=== PATIENT | female | born 1995 | race Caucasian/White ===

== ENCOUNTER 2021-03-07 08:59 | Outpatient (REF) | payer OTHER, SELFPAY ==
--- NOTE | ~2021-03-07 | XR_ITS ---
EXAMINATION: CR X-RAY PELVIS AND BILATERAL HIPS. CLINICAL INFORMATION: Bilateral hip and pelvic pain. COMPARISON: None TECHNIQUE: A single view of the pelvis and 2 views of each hip were obtained. FINDINGS: There is no acute fracture or dislocation. The hips are intact. The hip joints are unremarkable bilaterally. The bony pelvis is intact. The soft tissues are unremarkable. XR/XR pelvis 1-2V IMPRESSION: Unremarkable pelvis and bilateral hips.
--- NOTE | ~2021-03-07 | XR_ITS ---
EXAMINATION: CR X-RAY PELVIS AND BILATERAL HIPS. CLINICAL INFORMATION: Bilateral hip and pelvic pain. COMPARISON: None TECHNIQUE: A single view of the pelvis and 2 views of each hip were obtained. FINDINGS: There is no acute fracture or dislocation. The hips are intact. The hip joints are unremarkable bilaterally. The bony pelvis is intact. The soft tissues are unremarkable. XR/XR hip LT min 2V IMPRESSION: Unremarkable pelvis and bilateral hips.
--- NOTE | ~2021-03-07 | XR_ITS ---
EXAMINATION: CR X-RAY PELVIS AND BILATERAL HIPS. CLINICAL INFORMATION: Bilateral hip and pelvic pain. COMPARISON: None TECHNIQUE: A single view of the pelvis and 2 views of each hip were obtained. FINDINGS: There is no acute fracture or dislocation. The hips are intact. The hip joints are unremarkable bilaterally. The bony pelvis is intact. The soft tissues are unremarkable. XR/XR hip RT min 2V IMPRESSION: Unremarkable pelvis and bilateral hips.
== END 2021-03-07 09:00 | disposition home or self-care (01) ==
LOC: HO.HOSX 08:59
PROVIDERS: Visit Provider Physician Assistant
DX: M25.551 Pain in right hip (principal); M25.552 Pain in left hip; M53.3 Sacrococcygeal disorders, not elsewhere classified; G89.29 Other chronic pain
CPT/HCPCS: 72170; 73502; 99202

== ENCOUNTER 2021-07-13 09:40 | Outpatient (REF) | payer OTHER, SELFPAY ==
--- NOTE | 2021-07-13 09:44 | EMG_ITS ---
This is a 26-year-old woman with a 4-year history of bilateral hand pain and numbness. The right side is slightly worse. PHYSICAL EXAMINATION: She is alert and oriented with normal intellectual functions. Her cranial nerves are normal. No Tinel or Phalen sign. IMPRESSION: Carpal tunnel syndrome. Nerve conduction EMG study: Mild carpal tunnel syndrome on the right. Early carpal tunnel syndrome on the left. Normal EMG of the right C5-T1 innervated muscles. MD AMBER Mar/JASBIR / [id number]
== END 2021-07-13 09:41 | disposition home or self-care (01) ==
LOC: HO.NEURO 09:40
PROVIDERS: PCP Internal Medicine; Visit Provider Internal Medicine
DX: G56.03 Carpal tunnel syndrome, bilateral upper limbs (principal)
CPT/HCPCS: 95885; 95913

== ENCOUNTER → 2022-02-20 13:27 | Outpatient (BNVA) | payer OTHER, SELFPAY | PROVIDERS: PCP Internal Medicine; Referring Provider Internal Medicine; Visit Provider Internal Medicine | DX: I10 Essential (primary) hypertension (principal); R07.2 Precordial pain | CPT/HCPCS: 93005; 99202 ==

== ENCOUNTER → 2022-03-10 09:07 | Outpatient (REF) | payer OTHER, SELFPAY ==
--- NOTE | 2022-03-10 09:10 | CA_ITS ---
Transthoracic Echocardiogram Patient (Last, First, Middle): Anne Nieves, Gender: Female Date of : 1995 Age: 26 Procedure Date: 03/10/2022 Procedure Type: Transthoracic Echocardiogram Location: OP Height: 165.1 cm Weight: 110.68 kg BSA: 2.15 m2 Heart Rate: 79 bpm BP: 110 / 50 mmHg Assessor: TO Referring MD: Geovani Cloud MD Symptoms: R07.2 - Precordial pain Study Quality: Technically Difficult/Contrast Conclusions: - Normal left ventricular cavity size. There is mildly increased left ventricular wall thickness. The left ventricular systolic function is hyperdynamic. - There is no evidence of regional wall motion abnormalities. - Normal right ventricular cavity size and systolic function. Findings Procedure Information Contrast agent, definity, is being given per protocol without apparent complications. Left Ventricle Normal left ventricular cavity size. There is mildly increased left ventricular wall thickness. The left ventricular systolic function is hyperdynamic. The visually estimated ejection fraction is >70%. There is no evidence of regional wall motion abnormalities. Diastolic function is normal for age. Right Ventricle Normal right ventricular cavity size and systolic function. Atria Both atria are normal in size. Aortic Valve Normal aortic valve structure and function. There is no aortic valve stenosis. There is no aortic valve regurgitation. Mitral Valve Normal mitral valve structure and function. There is no mitral valve regurgitation. There is no mitral valve stenosis. Pulmonic Valve The pulmonic valve is likely normal. Tricuspid Valve Normal tricuspid valve structure and function. There is no tricuspid valve regurgitation. Normal right atrial pressure. There is no evidence of pulmonary hypertension. Venous The inferior vena cava is normal in size and collapses greater than 50% with inspiration. Pericardium/Pleural There is no evidence of pericardial effusion. Prior Study Comparison No prior study available for comparison. Measurements 2D Linear Measurements IVSd: 0.90 0.6-0.9/0.6-1.0 cm LVIDd: 4.76 3.9-5.3/4.2-5.9 cm LVIDd Index: 2.21 2.4-3.2/2.2-3.1 cm/m2 LVIDs: 2.48 2.0-3.6 cm LVPWd: 0.97 0.7-1.1 cm LA Diam: 3.60 2.7-3.8/3.0-4.0 cm LAIDs Index: 1.67 1.5-2.3 cm/m2 LV Mass: 190.79 67-162/88-224 g LV Mass Index: 88.74 43-95/49-115 g/m2 LVOT Diam: 2.00 3.0+(-)1.3 cm 2D Systolic Function EF 4C: 70.80 >55% EF 2C: 77.30 >55% EF BiP: 74.90 >55% Mitral Valve MV Pk E: 0.96 MV PK A: 0.48 MV Decel Time: 214.00 E/A: 2.00 E'Lateral: 18.50 E'Medial: 12.20 E/E' Med: 7.90 E/E' Lat: 5.20 PHT: 63.00 MVA PHT: 3.49 Decel Billings: 4.50 Aortic Valve AoV Pk Bam: 1.62 AoV Mn Bam: 1.18 AoV VTI: 0.32 AoV Pk Grad: 10.00 Aov Mn Grad: 6.00 IVIS Cont.VTI: 2.75 LVOT LVOT Pk Bam: 1.30 LVOT Mn Bam: 0.88 LVOT VTI: 0.28 LVOT Pk Grad: 7.00 LVOT Mn Grad: 4.00 LVOT Diam: 2.00 LVOT Area: 3.14 Diastolic Function MV Pk E: 0.96 MV Pk A: 0.48 E/A: 2.00 E'Medial: 12.20 E/E' Med: 7.90 E' Laterial: 18.50 E/E' Lat: 5.20 Right Ventricle TAPSE (mm): 30.40 TVS' Bam: 15.10 Tricuspid Valve TR Pk Bam: 1.55 TR Pk Grad: 10.00 RA Press: 3.00 RVSP: 13.00 Great Vessels Aorta Sinus of Valsalva: 2.92 2.0-3.5 cm Ao Asc: 2.60 2.1-3.4 cm Updated in Other Vendor System with Status of Final Adryan Ross MD electronically signed on 03/12/2022 2:19:31 PM with status of Final
== END ==
LOC: HO.CARD 09:07
PROVIDERS: PCP Internal Medicine; Visit Provider Internal Medicine
DX: R07.2 Precordial pain (principal)
CPT/HCPCS: 93306; Q9957

== ENCOUNTER 2022-03-21 09:13 | Outpatient (REF) | payer OTHER, SELFPAY ==
--- NOTE | ~2022-03-21 | US_ITS ---
EXAMINATION: US RETROPERITONEAL LIMITED (RENAL ONLY) CLINICAL INFORMATION: Hypertension. COMPARISON: None TECHNIQUE: Grayscale and color imaging of the kidneys. Grayscale color and Doppler imaging of the aorta and renal arteries including waveform spectral analysis. FINDINGS: RIGHT KIDNEY: 12.3 x 5.5 x 7.1 cm (SAG x AP x TRV). The kidney is normal in size, contour, and echogenicity. Renal cortical thickness is normal. No calculi or focal parenchymal lesions. No hydronephrosis. LEFT KIDNEY: 12.2 x 4.8 x 5 cm (SAG x AP x TRV). The kidney is normal in size, contour, and echogenicity. Renal cortical thickness is normal. No calculi or focal parenchymal lesions. No hydronephrosis. Visualized abdominal aorta is normal in caliber. Aortic peak systolic velocity in the mid abdominal aorta measures 97 cm/s. Renal Doppler exam: Right: Right renal artery peak systolic velocities measure 145, 157 and 212 cm/s proximally, in the midportion and distally. Right renal artery to aorta ratio is 2.2. Resistive indices of the segmental renal arteries in the right kidney measuring 0.7-0.8. Left: Left renal artery peak systolic velocities measure 199, 141 and 1 97 cm/s proximally, in the midportion and distally. Left renal artery to aorta ratio measures 2.1. Resistive indices of the segmental renal arteries in the left kidney measuring 0.7. US/US renal doppler IMPRESSION: Morphologically normal-appearing kidneys. Increased peak systolic velocities in the bilateral renal arteries and slightly increased resistive index of the segmental renal arteries in the right kidney. Findings are suggestive of less than 60% bilateral renal artery stenosis.
--- NOTE | ~2022-03-21 | US_ITS ---
EXAMINATION: US RETROPERITONEAL LIMITED (RENAL ONLY) CLINICAL INFORMATION: Hypertension. COMPARISON: None TECHNIQUE: Grayscale and color imaging of the kidneys. Grayscale color and Doppler imaging of the aorta and renal arteries including waveform spectral analysis. FINDINGS: RIGHT KIDNEY: 12.3 x 5.5 x 7.1 cm (SAG x AP x TRV). The kidney is normal in size, contour, and echogenicity. Renal cortical thickness is normal. No calculi or focal parenchymal lesions. No hydronephrosis. LEFT KIDNEY: 12.2 x 4.8 x 5 cm (SAG x AP x TRV). The kidney is normal in size, contour, and echogenicity. Renal cortical thickness is normal. No calculi or focal parenchymal lesions. No hydronephrosis. Visualized abdominal aorta is normal in caliber. Aortic peak systolic velocity in the mid abdominal aorta measures 97 cm/s. Renal Doppler exam: Right: Right renal artery peak systolic velocities measure 145, 157 and 212 cm/s proximally, in the midportion and distally. Right renal artery to aorta ratio is 2.2. Resistive indices of the segmental renal arteries in the right kidney measuring 0.7-0.8. Left: Left renal artery peak systolic velocities measure 199, 141 and 1 97 cm/s proximally, in the midportion and distally. Left renal artery to aorta ratio measures 2.1. Resistive indices of the segmental renal arteries in the left kidney measuring 0.7. US/US renal BI IMPRESSION: Morphologically normal-appearing kidneys. Increased peak systolic velocities in the bilateral renal arteries and slightly increased resistive index of the segmental renal arteries in the right kidney. Findings are suggestive of less than 60% bilateral renal artery stenosis.
== END 2022-03-21 09:14 | disposition home or self-care (01) ==
LOC: HO.HMGCX 09:13
PROVIDERS: PCP Internal Medicine; Visit Provider Internal Medicine
DX: I70.1 Atherosclerosis of renal artery (principal); I10 Essential (primary) hypertension
CPT/HCPCS: 76775; 93975

== ENCOUNTER → 2022-05-30 12:41 | Outpatient (BNVA) | payer OTHER, SELFPAY | PROVIDERS: PCP Internal Medicine; Referring Provider Internal Medicine; Visit Provider Nurse Practitioner Family | DX: I10 Essential (primary) hypertension (principal); I70.1 Atherosclerosis of renal artery; Z79.899 Other long term (current) drug therapy | CPT/HCPCS: 99212 ==

== ENCOUNTER 2022-06-14 07:50 | Outpatient (REF) | payer OTHER, SELFPAY ==
--- NOTE | ~2022-06-14 | CT_ITS ---
STUDY PERFORMED: CTA ABDOMEN WITHOUT AND WITH CONTRAST HISTORY: Renal artery stenosis DESCRIPTION: Routine abdomen and pelvis CTA protocol with contrast was performed. 70 mL of Omnipaque 350 was administered. 3D POSTPROCESSING: Multiple 3-D angiographic images were processed from the initial data set by the [facility] under concurrent physician supervision. DOSE LOWERING TECHNIQUES: This CT examination was performed using dose optimization techniques as appropriate, variously including the following: - Automated exposure control - Adjustment of mA and/or kV according to patient size (this includes techniques or standardized protocols for targeted exams where dose is matched to indication/reason for exam; i.e. extremities or head) - Use of iterative reconstruction technique DLP: 216 mGycm. COMPARISON: None FINDINGS: VASCULAR: ABDOMINAL AORTA: Normal caliber and widely patent. No evidence of aneurysm. No significant atherosclerotic plaque. CELIOMESENTERIC ARTERIES: Celiac artery, superior mesenteric artery and inferior mesenteric artery are normal caliber and widely patent. No evidence of vessel irregularity or aneurysms RENAL ARTERIES: Single bilateral renal arteries are present. Bilateral renal arteries are normal caliber and widely patent. No evidence of vessel irregularity or aneurysms. NONVASCULAR: Lung Bases: The visualized lung bases are unremarkable. Liver, Gallbladder and Biliary Tree: The liver is normal in size, shape, and attenuation. No focal hepatic lesion or biliary ductal dilatation is present. The gallbladder is unremarkable with no evidence of radiopaque gallstones, gallbladder wall thickening, or obvious pericholecystic inflammatory changes. Pancreas: Unremarkable. Spleen: Unremarkable. Adrenal Glands: Unremarkable. Kidneys and Ureters: The kidneys are normal in size, shape, and attenuation. No hydronephrosis, hydroureter, or calculi seen. No perinephric stranding. Bladder: Unremarkable. Gastrointestinal Tract: The visualized small and large bowel are unremarkable. The appendix is unremarkable. Abdominal Wall: No significant hernia is appreciated. Lymph Nodes: Normal. Osseous Structures: Unremarkable. CT/CT angio abdomen IMPRESSION: Normal CTA of the abdomen. Bilateral renal arteries are normal in caliber and widely patent. No evidence of vessel irregularity or renal artery stenosis
[2022-06-14] MEDS: iohexoL 350 MG/ML 100 ML INFUS..BTL IV (08:35)
== END 2022-06-14 07:51 | disposition home or self-care (01) ==
LOC: HO.CT 07:50
PROVIDERS: PCP Internal Medicine; Visit Provider Nurse Practitioner Family
DX: I10 Essential (primary) hypertension (principal); I70.1 Atherosclerosis of renal artery
CPT/HCPCS: 74175; Q9967

== ENCOUNTER 2022-06-20 14:25 | Outpatient (REF) | payer OTHER, SELFPAY ==
--- NOTE | ~2022-06-20 | US_ITS ---
EXAMINATION: US PELVIS COMPLETE CLINICAL INFORMATION: Excessive and frequent menstruation COMPARISON: Pelvic ultrasound 06/03/2018 TECHNIQUE: Transabdominal and transvaginal imaging was performed. FINDINGS: The uterus is of normal size and echogenicity measuring 8.6 x 4.9 x 5.7 cm. A regular homogeneous endometrium is identified measuring 0.6 cm. Nabothian cyst present in the cervix. Suspect a small 1.5 x 1.7 x 1.3 cm subserosal myoma in the fundus of the uterus. Both ovaries are of normal size and echogenicity. The right measures 3.1 x 1.6 x 3.2 cm for a volume of 8.3 mL. The left measures 3.4 x 1.7 x 2.6 cm for a volume of 7.9 mL. There is no pelvic free fluid. US/US pelvic and transvaginal IMPRESSION: Suspect a small 1.7 cm subserosal myoma in the fundus of the uterus.
== END 2022-06-20 14:26 | disposition home or self-care (01) ==
LOC: HO.US 14:25
PROVIDERS: Visit Provider Internal Medicine
DX: N92.1 Excessive and frequent menstruation with irregular cycle (principal)
CPT/HCPCS: 76830; 76856

== ENCOUNTER 2022-12-13 12:37 | Outpatient (AMB) | payer OTHER, SELFPAY ==
[2022-12-13 12:57] VITALS: BP 112/58; PULSE 89; BMI 41.2
--- NOTE | 2022-12-13 12:57 | MHC.OFFVIS ---
Intake Vital Signs 12/13/22 12:57 Height 5 ft 6 in Weight 255 lb 4.725 oz BMI 41.2 BP 112/58 L Blood Pressure Location Lt brachial Position Sitting Pulse 89 Intake Visit Reasons: 3 mth f/up cta kidney per DC Intake Note: 3 month follow up Manager Warehouse Required: Yes Manager Warehouse Language: Head Of Precision Targeting Name: Kiana [id number] Accompanied by: Self / Same As Patient Allergies No Known Allergies Allergy (Verified 12/13/22 12:59) Medication List - Last Reconciled 12/13/22 by Geovani Cloud MD amlodipine 5 mg PO DAILY diclofenac sodium 1% 2 grams topical QID hydrochlorothiazide 25 mg PO DAILY lisinopril 40 mg PO DAILY HPI HPI Comments History of Present Illness Details Anne returns for follow-up. In the past, she was seen regarding chest pain as well as hypertension. She states that over the last year, she has been taking blood pressure medications. It seems that she was only on lisinopril/hydrochlorothiazide in the past but more recently, amlodipine has been added. And no known cardiac issues otherwise. Recently she had an episode where she had discomfort across the chest and that last for almost 2 days or so. Spontaneous onset and no specific provoking or relieving factors. It seems that has resolved completely. No exertional characteristics at all. She has completed an echocardiogram, renal ultrasound as well as CTA. 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 Review of Systems Const Denies weakness ENT Denies dizziness Card Denies chest pain, Denies chest pain with activity, Denies syncope, Denies rapid heart rate, Denies pedal edema, Denies edema, Denies leg edema, Denies lightheadedness, Denies palpitations, Denies dyspnea, Denies dyspnea on exertion and Denies orthopnea Resp Denies cough, Denies dyspnea and Denies dyspnea on exertion GI Denies hematochezia and Denies change in stool character Musc Denies abnormal gait, Denies muscle cramps, Denies muscle weakness, Denies numbness, Denies radiating pain into limb and Denies tingling Neuro Denies abnormal gait, Denies dizziness, Denies syncope, Denies numbness, Denies tingling and Denies weakness Endo Denies palpitations Physical Exam Vital Signs: Last Vital Signs Pulse 89 12/13/22 12:57 BP 112/58 L 12/13/22 12:57 BMI result Body Mass Index 41.2 Const General: comfortable and no acute distress Orientation/consciousness: patient oriented x3 HEENT Other: Unremarkable Head: Yes normal to inspection Neck Neck: Yes normal visual inspection Chest Chest palpation & inspection: normal inspection of the chest Resp Auscultation: clear to auscultation bilaterally Cardio Palpation: normal PMI Heart sounds: S1 normal heart sound present, S2 normal heart sound present, no gallops, no murmurs and no rubs GI Palpation (GI): Soft to palpation Back/Spine/Pelvis Other: unremarkable Skin General skin exam: no rashes or lesions noted Neuro General: patient oriented x3 Extrem General: Yes normal to inspection Psych Mental Status: mental status grossly normal Assessment & Plan Assessment & Plan (1) Precordial chest pain: Code(s): R07.2 - Precordial pain Plan: Atypical and resolved. She has not had any recurrences. Will hold off any further workup. (2) Essential hypertension: Code(s): I10 - Essential (primary) hypertension Plan: In the echocardiogram, hyperdynamic LVEF, > 70%. Mild left ventricular hypertrophy. Otherwise unremarkable. In the renal ultrasound, there was question of bilateral renal artery stenosis. In the CTA however, bilateral renal arteries are normal in caliber and widely patent. No evidence of renal artery stenosis. Overall, stable blood pressures and continue current regimen. Coding Level of Care Code Est Pt Level 3 (98349) Diagnoses Precordial chest pain R07.2 Essential hypertension I10
== END 2022-12-13 13:09 | disposition home or self-care (01) ==
PROVIDERS: Visit Provider Internal Medicine
DX: R07.2 Precordial pain (principal); I10 Essential (primary) hypertension
CPT/HCPCS: 99213

== ENCOUNTER → 2022-12-13 12:37 | Outpatient (BNVA) | payer OTHER, SELFPAY | PROVIDERS: Visit Provider Internal Medicine | DX: R07.2 Precordial pain (principal); I10 Essential (primary) hypertension | CPT/HCPCS: 99212 ==

== ENCOUNTER 2023-03-29 16:08 | Outpatient (REF) | payer OTHER, SELFPAY ==
[2023-03-29 17:34] LABS: MANUAL DIFF FLAG NO
[2023-03-29 17:44] LABS: Basophils Absolute Auto 0.1 X10*3/uL (0.0-0.2); Basophils Percent Auto 0.5 % (0-2); Eosinophils Absolute Auto 0.2 X10*3/uL (0.0-0.4); Eosinophils Percent Auto 1.7 % (0-4); Hematocrit 35.1 % (37.0-47.0); Hemoglobin 11.4 g/dl (12.0-16.0); Imm Gran Abs Auto 0.04 X10*3/uL (0.00-0.03); Imm Gran Pct Auto 0.4 % (0.0-0.4); Lymphocytes Absolute Auto 2.4 X10*3/uL (1.2-4.9); Mean Corpuscular HGB Conc 32.5 g/dl (31.0-35.0); Mean Corpuscular Hemoglobin 24.5 pg (27.0-33.0); Mean Corpuscular Volume 75.3 fL (80.0-98.0); Monocytes Absolute Auto 0.8 X10*3/uL (0.1-1.2); Monocytes Percent Auto 7.8 % (2-11); Neutrophils Absolute Auto 6.5 x10*3/uL (2.0-8.3); Neutrophils Percent Auto 65.6 % (45-73); Platelet Count 316 X10*3/uL (160-400); Red Blood Count 4.66 X10*6/uL (4.20-5.50); Red Cell Distribution Width 14.6 % (11.0-16.0)
[2023-03-29 17:55] LABS: Anion Gap 13 (12-20); Blood Urea Nitrogen 13 mg/dL (9-16); Calcium 9.7 mg/dL (8.4-10.2); Carbon Dioxide 28 mmol/L (22-29); Chloride 101 mmol/L (96-108); Estimated Glomerular Filt Rate > 60; Glucose Random 115 mg/dL (60-115); Iron 36 mcg/dL (30-160); Percent Iron Saturation 12 % (15-50); Potassium 3.8 mmol/L (3.3-5.1); Sodium 138 mmol/L (135-145); Total Iron Binding Capacity 299 mcg/dL (228-428); Unsaturated Iron Binding 263 ug/dL
[2023-03-29 18:09] LABS: Ferritin 32 ng/mL (10-122)
[2023-03-29 18:52] LABS: Folate 10.9 ng/mL (> or = 4.0); Vitamin B12 464 pg/mL (200-900)
== END 2023-03-29 16:09 | disposition home or self-care (01) ==
LOC: HO.CHCLDS 16:08
PROVIDERS: Visit Provider Internal Medicine
DX: I10 Essential (primary) hypertension (principal); E61.1 Iron deficiency
CPT/HCPCS: 36415; 80048; 82607; 82728; 82746; 83540; 85025

== ENCOUNTER 2023-07-17 08:43 | Outpatient (REF) | payer OTHER, SELFPAY ==
[2023-07-17 14:16] LABS: MANUAL DIFF FLAG NO
[2023-07-17 14:23] LABS: Basophils Percent Auto 0.3 % (0-2); Eosinophils Absolute Auto 0.2 X10*3/uL (0.0-0.4); Eosinophils Percent Auto 1.8 % (0-4); Hematocrit 37.3 % (37.0-47.0); Hemoglobin 12.1 g/dl (12.0-16.0); Imm Gran Abs Auto 0.04 X10*3/uL (0.00-0.03); Imm Gran Pct Auto 0.5 % (0.0-0.4); Lymphocytes Absolute Auto 2.1 X10*3/uL (1.2-4.9); Lymphocytes Percent Auto 23.5 % (20-40); Mean Corpuscular HGB Conc 32.4 g/dl (31.0-35.0); Mean Corpuscular Hemoglobin 23.4 pg (27.0-33.0); Mean Platelet Volume 9.9 fL (9.4-12.3); Monocytes Absolute Auto 0.5 X10*3/uL (0.1-1.2); Monocytes Percent Auto 5.9 % (2-11); Neutrophils Absolute Auto 5.9 x10*3/uL (2.0-8.3); Platelet Count 316 X10*3/uL (160-400); Red Blood Count 5.18 X10*6/uL (4.20-5.50); Red Cell Distribution Width 16.2 % (11.0-16.0); White Blood Count 8.7 X10*3/uL (4.8-10.8)
[2023-07-17 15:02] LABS: Anion Gap 13 (12-20); Blood Urea Nitrogen 10 mg/dL (9-16); Calcium 9.8 mg/dL (8.4-10.2); Carbon Dioxide 27 mmol/L (22-29); Chloride 102 mmol/L (96-108); Estimated Glomerular Filt Rate > 60; Glucose Fasting 72 mg/dL (60-99); Iron 32 mcg/dL (30-160); Percent Iron Saturation 11 % (15-50); Potassium 3.7 mmol/L (3.3-5.1); Sodium 138 mmol/L (135-145); Total Iron Binding Capacity 299 mcg/dL (228-428); Unsaturated Iron Binding 267 ug/dL
[2023-07-17 15:26] LABS: Ferritin 33 ng/mL (10-122)
[2023-07-17 16:56] LABS: Folate 10.7 ng/mL (> or = 4.0)
[2023-07-18 15:39] LABS: Vitamin B12 519 pg/mL (200-900)
== END 2023-07-17 08:44 | disposition home or self-care (01) ==
LOC: HO.CHCLDS 08:43
PROVIDERS: Visit Provider Internal Medicine
DX: E61.1 Iron deficiency (principal); I10 Essential (primary) hypertension
CPT/HCPCS: 36415; 80048; 82607; 82728; 82746; 83540; 85025

== ENCOUNTER 2024-05-23 10:14 | Outpatient (REF) | payer OTHER, SELFPAY ==
[2024-05-23 14:03] LABS: MANUAL DIFF FLAG NO
[2024-05-23 14:11] LABS: Basophils Absolute Auto 0.1 X10*3/uL (0.0-0.2); Basophils Percent Auto 0.6 % (0-2); Eosinophils Absolute Auto 0.2 X10*3/uL (0.0-0.4); Eosinophils Percent Auto 2.2 % (0-4); Hematocrit 36.4 % (37.0-47.0); Hemoglobin 11.8 g/dl (12.0-16.0); Imm Gran Abs Auto 0.02 X10*3/uL (0.00-0.03); Imm Gran Pct Auto 0.2 % (0.0-0.4); Lymphocytes Absolute Auto 2.2 X10*3/uL (1.2-4.9); Lymphocytes Percent Auto 27.1 % (20-40); Mean Corpuscular HGB Conc 32.4 g/dl (31.0-35.0); Mean Corpuscular Hemoglobin 25.4 pg (27.0-33.0); Mean Corpuscular Volume 78.4 fL (80.0-98.0); Mean Platelet Volume 10.8 fL (9.4-12.3); Monocytes Absolute Auto 0.5 X10*3/uL (0.1-1.2); Monocytes Percent Auto 6.6 % (2-11); Neutrophils Absolute Auto 5.1 x10*3/uL (2.0-8.3); Neutrophils Percent Auto 63.3 % (45-73); Platelet Count 273 X10*3/uL (160-400); Red Blood Count 4.64 X10*6/uL (4.20-5.50); Red Cell Distribution Width 14.3 % (11.0-16.0)
[2024-05-23 14:39] LABS: Iron 38 mcg/dL (30-160); Percent Iron Saturation 14 % (15-50); Total Iron Binding Capacity 275 mcg/dL (228-428); Unsaturated Iron Binding 237 ug/dL
== END 2024-05-23 10:15 | disposition home or self-care (01) ==
LOC: HO.CHCLDS 10:14
PROVIDERS: Visit Provider Internal Medicine
DX: E61.1 Iron deficiency (principal)
CPT/HCPCS: 36415; 83540; 85025

== ENCOUNTER 2024-07-04 06:35 | Outpatient (REF) | payer OTHER, SELFPAY ==
--- OUTSIDE RECORDS SUMMARY | 2024-07-04 06:37 | XMS_ITS | Encounter Summary ---
Author Organization [employer] Address [address] [place] [address] Care Team Providers Care Engagement Liaison Name Role Phone Reilly Taylor MD Primary Care Prov ider Reason for Visit * Reason Onset Date Comments Lab Orders 05/31/2022 Encounter Details Date Type Department Care Team ([facility] st Contact Info) Description 05/31/2022 Telephone [facility] MEDICINE [address] [place] [address] Reilly Taylor MD [address] [place] [address] Lab Orders Social History Tobacco Use Types Packs/Day Years Used Date Smoking Tobacco: Never Assessed Depression Answer Date Recorded Patient Health Questionnaire-9 Score 1 08/31/2022 Housing Stability Answer Date Recorded What is your housing situation today? I have ivethbaylee law 03/19/[address] you li ve. Do you have problems with any of the following? None of the above 03/19/2023 Food Insecurity Answer Date Recorded Within the past 12 months, y ou worried that your food would run out before you got money to buy more: Never True 03/19/2023 Within the past 12 months,th e food you bought just didn't last and you didn't have enough money to get more: Never True Transportation Answer Date Recorded In the past 12 months, has l ack of transportation kept you from medical appts, meetings, work or from getting things needed for daily living? No 03/19/2023 Utilities Answer Date Recorded In the past 12 months, has t he electric, gas, oil or water company threatened to shut off services in your home? No 03/19/2023 Depression Answer Date Recorded Patient Health Questionnaire-2 Score 0 08/31/2022 Comments Unknown Sex and Gender Information Value Date Recorded Sex Assigned at Female 03/20/2022 10:29 AM EDT Legal Sex Female 10:29 AM EDT Gender Identity Female 03/20/2022 10:29 AM EDT Sexual Orientation Straight 03/20/2022 10 :29 AM EDT COVID-19 Exposure Response Date Recorded In the last 10 days, have yo u been in contact with someone who was confirmed or suspected to have Coronavirus/COVID-19? No / Unsure 08/30/2022 7:37 PM EDT documented as of this encounter Miscellaneous Notes * Telephone Encounter - Vivi Reyes RN - 05/31/2022 10:08 AM EST Please see message below. Thank you. * Telephone Encounter - Javi Brasher - 05/31/2022 10:02 AM EST [facility] pelvis however they do not take pt insurance unable to book pt, Advised will leave a message. Please contact at [phone] documented in this encounter Plan of Treatment Upcoming Encounters Date Type Department Care Team (Late st Contact Info) Description 07/28/2024 3:15 PM EDT Telemedicine [facility] PEDS [address] [place] [address] Reilly Taylor MD [address] [place] [address] documented as of this encounter Visit Diagnoses Not on filedocumented in this encounter Care Teams Engagement Liaison Relationship Specialty Start Date End Date Reilly Taylor MD [address] [place] [address] PCP - General Internal Medicine 10/14/19 documented as of this encounter
--- OUTSIDE RECORDS SUMMARY | 2024-07-04 06:37 | XMS_ITS | Clinical Summary ---
Author Organization [facility] Address [address] [place] [address] Care Team Providers Care Traffic Coordinator Name Role Phone Reilly Ocasio MD Primary Care Provider [phone] Allergies No known active allergies Medications Medication Sig Dispensed Refills Start Date End Date Status Cholecalciferol (Vitamin D3) 50 MCG (1999) capsule Take by mouth daily. 0 06/15/2021 Active cromolyn (OPTICROM) 4 % ophthalmic solution PLACE ONE DROP IN EACH EYE EVERY DAY NEEDED FOR ALLERGY. 0 06/15/2021 Active hydroCHLOROthiazide (HYDRODIURIL) tablet 25 mg Take 25 mg by mouth daily. 0 07/13/2021 Active methocarbamol (ROBAXIN) 750 MG tablet Take 750 mg by mouth 4 (four) times a day. 0 Active lisinopril (PRINIVIL,ZESTRIL) tablet 20 mg Take 20 mg by mouth daily. 0 Active Active Problems Problem Noted Date Diagnosed Date Iron deficiency anemia due to chronic blood loss 07/27/2021 Family History Medical History Relation Name Comments Diabetes Father Hypertension Father Cancer Maternal Grandfather Clotting disorder Maternal Grandmother Diabetes Maternal Grandmother Diabetes Mother Hypertension Mother Cancer Paternal Grandfather Clotting disorder Paternal Grandfather Diabetes Paternal Grandfather Relation Name Status Comments Father Maternal Grandfather Maternal Grandmother Mother Paternal Grandfather Social History Tobacco Use Types Packs/Day Years Used Date Smoking Tobacco: Never Smokeless Tobacco: Never Alcohol Use Standard Drinks/Week Comments Not Currently 0 (1 standard drink = 0.6 oz pur e alcohol) Sex and Gender Information Value Date Recorded Sex Assigned at Not on file Gender Identity Not on file Sexual Orientation Not on file Job Start Date Occupation Industry Not on file Not on file Not on file Last Filed Vital Signs Vital Sign Reading Time Taken Comments Blood Pressure 141/80 08/11/2022 2:41 PM EDT Pulse 82 08/11/2022 2:41 PM EDT Temperature 36.9 ??C (98.4 ??F) 08/11/2022 2:41 PM ED T Respiratory Rate - - Oxygen Saturation 100% 08/11/2022 2:41 PM EDT Inhaled Oxygen Concentration - - Weight 112.6 kg (248 lb 3.2 oz) 08/11/2022 2:41 PM EDT Height 162.6 cm (5' 4 ) 08/11/2022 2:41 PM EDT Body Mass Index 42.6 08/11/2022 2:41 PM EDT Plan of Treatment Health Maintenance Due Date Last Done Comments Hepatitis B Vaccines (1 of 3 - 3-dose series) 1993 Depression Screening 2005 Preventative Health Evaluation 2011 DTap / Tdap / Td (1 - Tdap) 2012 Cervical Cancer Screening (Pap Smear) 2014 COVID-19 Vaccine (3 - 2023-2 5 season) 2024 11/19/2020, 10/29/2020 Influenza Vaccine (#1) 2024 Hepatitis C Screening Completed 07/06/2022 Pneumococcal Vaccine Aged Out No long er eligible based on patient's age to complete this topic RSV Ped < 20 months Aged Out No longe r eligible based on patient's age to complete this topic Care Teams Traffic Coordinator Relationship Specialty Start Date End Date Reilly Ocasio MD [address] [place] [id number] PCP - General Internal Medicine 07/27/21
--- OUTSIDE RECORDS SUMMARY | 2024-07-04 06:37 | XMS_ITS | Clinical Summary ---
Author Organization [employer] Address [address] [facility] [address] [place] [address] Care Team Providers Care Customer Service Manager Name Role Phone Reilly Taylor MD Primary Care Prov ider Allergies No known active allergies Medications Blood Pressure kit 1 kit in the morning. 1 kit 03/29/20 23 Active cetirizine (ZyrTEC) 10 MG tablet Take 1 tablet (10 mg) by mouth in the morning. 30 tablet 11 07/19/19 24 025 Active Emollient (Cetaphil) moisturizing lotion APPLY TO THE AFFECTED AREA(S) DAILY NEEDED FOR DRY SKIN 237 mL 1 11/21/19 24 Active hydroCHLOROthia zide (HYDRODiuril) 25 MG tabletIndicatio ns:Primary hypertension Take 1 tablet (25 mg) by mouth in the morning. 90 tablet 3 06/30/19 25 Active lisinopril 40 MG tabletIndicatio ns:Primary hypertension Take 1 tablet (40 mg) by mouth in the morning. 90 tablet 3 06/30/19 25 Active ferrous sulfate (FeroSul) 325 (65 Fe) MG tabletIndicatio ns:Iron deficiency Take 1 tablet (325 mg) by mouth with breakfast. 90 tablet 3 06/30/19 25 026 Active lisinopril 40 MG tabletIndicatio ns:Primary hypertension TAKE ONE TABLET BY MOUTH EVERY MORNING 90 tablet 3 09/25/19 24 025 Discontinued(Re order (will not trigger notification to Pharmacy)) hydroCHLOROthia zide (HYDRODiuril) 25 MG tabletIndicatio ns:Primary hypertension TAKE ONE TABLET BY MOUTH EVERY MORNING 90 tablet 3 09/25/19 24 025 Discontinued(Re order (will not trigger notification to Pharmacy)) FeroSul 325 (65 Fe) MG tabletIndicatio ns:Iron deficiency TAKE ONE TABLET DAILY WITH BREAKFAST 90 tablet 1 01/19/20 24 025 Discontinued(Re order (will not trigger notification to Pharmacy)) Active Problems Problem Noted Date Diagnosed Date Allergy 07/23/2023 Assessment & Plan (07/23/2023 8:51 AM EST): Patient refers ever since being exposed to a new plastic material at her job she has been suffering from allergies, told to continue with zyrtec, will refer to casino operations supervisor Iron deficiency 06/14/2022 Assessment & Plan (10/11/2023 11:31 AM EDT): On oral iron replacement, will order new cbc and iron level for evaluation Assessment & Plan (07/19/2023 2:56 PM EST): Levels still low, she refer not taking oral iron replacement, reviewed importance of medication adherence, follow up in 3 months Assessment & Plan (05/09/2023 4:12 PM EST): Found with iron def anemia, restarted oral iron replacement, follow up in 3 months Assessment & Plan (08/31/2022 4:19 PM EDT): Continue oral iron replacement every other day, will place lab order to be repeated in 4 months for next visit Assessment & Plan (06/14/2022 2:38 PM EST): Will order new labs for guidance of therapy Primary hypertension 06/14/2022 Assessment & Plan (06/30/2024 4:26 PM EST): Will renew medications, told to keep a low sodium diet, exercise as tolerated, keep bp log, Assessment & Plan (10/11/2023 11:31 AM EDT): Controlled on lisinopril and hydrochlorothiazide, continue low sodium diet and exercise as tolerated Assessment & Plan (07/19/2023 2:55 PM EST): Controlled, reinforced low sodium diet and exercise as tolerated, continue lisinopril and hydrochlorothiazide, labs reviewed with patient Assessment & Plan (05/09/2023 4:12 PM EST): Controlled, continue lisinopril/hctz, keep bp log, will follow up in 3 months Assessment & Plan (03/29/2023 6:02 PM EST): Told to keep bp log, continue with lisinopril 40mg and hydrochlorothiazide 25, will stop amlodipine, follow up in 1 month Assessment & Plan (08/31/2022 4:18 PM EDT): Controlled, reinforced low sodium diet and exercise as tolerated, continue current treatment, bp target <140/90 Assessment & Plan (06/14/2022 2:37 PM EST): Controlled, saw locomotive crane operator helper who ordered a abd/pelvic ct scan to r/o renal artery stenosis, will order new labs and follow up in 3 months Encounters Date Type Department Care Team Description 06/30/2024 3:15 PM EST Office Visit [facility] MED & PEDS [address] [place] [address] Reilly Taylor MD Facial rash (Primary Dx); Primary hypertension; Iron deficiency; Dietary counseling; Exercise counseling 06/30/2024 Travel 06/04/2024 Travel 06/03/2024 Telephone [facility] MED & [facility] [address] [place] [address] Reilly Taylor MD Chart Prep from Last 3 Months Immunizations Name Administration Dates Next Due HPV 9-Valent 04/29/2019,03/26/2019 Hep B, adult 05/22/2017,02/29/2016,09/30/2015 Influenza injectable quadriv alent IIV4 with preservative 03/05/2019,05/22/2017,02/29/2016 Influenza injectable quadriv alent preservative free 06/18/2018,03/08/2015 Tdap 09/30/2015 Social History Tobacco Use Types Packs/Day Years Used Date Smoking Tobacco: Never Smokeless Tobacco: Never Tobacco Cessation:Counseling Given: Not Answered Alcohol Use Standard Drinks/Week Comments Not Currently 0 (1 standard drink = 0.6 oz pur e alcohol) Depression Answer Date Recorded Patient Health Questionnaire-9 Score 1 08/31/2022 Housing Stability Answer Date Recorded What is your housing situation today? I have iveth law 03/19/[address] you [...] Orientation Straight 03/20/2022 10 :29 AM EDT Last Filed Vital Signs Vital Sign Reading Time Taken Comments Blood Pressure 138/81 06/30/2024 3:05 PM EST Pulse 80 06/30/2024 3:05 PM EST Temperature 36.6 ??C (97.8 ??F) 06/30/2024 3:05 PM ES T Respiratory Rate 20 06/30/2024 3:05 PM EST Oxygen Saturation - - Inhaled Oxygen Concentration - - Weight 107 kg (236 lb) 06/30/2024 3:05 PM EST Height 162.6 cm (5' 4 ) 06/30/2024 3:05 PM EST Body Mass Index 40.51 06/30/2024 3:05 PM EST Plan of Treatment Upcoming Encounters Date Type Department Care Team ([facility] st Contact Info) Description 07/28/2024 3:15 PM EDT Telemedicine [facility] MED & PEDS [address] [place] [address] Reilly Taylor MD [address] [place] [address] Health Maintenance Due Date Last Done Comments Alcohol/Substance Use Screening 2005 Family Planning (PISQ) 2008 HPV Vaccines (3 - 3-dose series) 09/24/2019 04/29/2019, 03/26/2019 Depression Screening 09/01/2023 08/31/2022, 09/01/19 23 SDOH Screening 09/01/2023 08/31/2022 COVID-19 Vaccine ( season) 2024 05/27/2021, 11/19/2020, 10/29/2020 Influenza Vaccine (#1) 2024 9, 06/18/2018, 05/22/2017, Additional history exists Tobacco Screening 05/09/2024 05/09/2023 Cervical Cancer Screening 04/04/2025 HPV/Cotest 04/04/2025 Pap Smear 04/04/2025 04/04/2022 DTaP/Tdap/Td Vaccines (2 - Td or Tdap) 09/29/2025 09/30/2015 Lipid Panel 07/06/2027 07/06/2022, 08/19, 03/09/2020 Zoster Vaccines (1 of 2) 2043 RSV Patients and Patients Aged 60 years or older (1 - 1-dose 75+ series) 2068 Hepatitis B Vaccines Completed 05/22/2017, 02/29/2016, 09/30/2015 HIV Screening Completed 07/06/2022 Hepatitis C Screening Completed 07/06/2022 HIB Vaccines Aged Out No longer eligi ble based on patient's age to complete this topic Hepatitis A Vaccines Aged Out No long er eligible based on patient's age to complete this topic IPV Vaccines Aged Out No longer eligi ble based on patient's age to complete this topic Meningococcal Vaccine Aged Out No yang zahida eligible based on patient's age to complete this topic Pneumococcal Vaccine: Pediatrics (0 to 5 Years) and At-Risk Patients (6 to 49) Years) Aged Out No longer eligible based on patient's age to complete this topic RSV under 20 months Aged Out No longe r eligible based on patient's age to complete this topic Rotavirus Vaccines Aged Out No longer eligible based on patient's age to complete this topic Procedures Procedure Name Priority Date/Time Associated Diagnosis Comments IRON AND TOTAL IRON BINDING CAPACITY Routine 05/23/2024 10:15 AM EST Iron deficiency CBC WITH AUTO DIFFERENTIAL Routine 05/23/2024 10:15 AM EST Iron deficiency HEPATITIS C AB W/REFL TO HCV RNA, QN, PCR Routine 07/06/2022 9:05 AM EST Primary hypertension HIV 1 RNA, QN PCR W/RFL MAKENZIE (RTI,PI,INTEGRASE) Routine 07/06/2022 9:05 AM EST Primary hypertension LIPID PANEL, STANDARD Routine 07/06/2022 9:05 AM EST Primary hypertension THINPREP IMAGING SYSTEM PAP Routine 04/04/2022 11:24 AM EST from Last 3 Months or Most Recently Relevant to Health Maintenance Results * (ABNORMAL) CBC auto differential (05/23/2024 10:15 AM EST) White Blood Count 8.0 4.8 - 10.8 X10*3/uL [facility] Red Blood Count 4.64 4.20 - 5.50 X10*6/uL [facility] Hemoglobin 11.8(L) 12.0 - 16.0 g/dl [facility] Hematocrit 36.4(L) 37.0 - 47.0 % [facility] Mean Corpuscular Volume 78.4(L) 80.0 - 98.0 fL [facility] Mean Corpuscular Hemoglobin 25.4(L) 27.0 - 33.0 pg [facility] Mean Corpuscular HGB Conc 32.4 31.0 - 35.0 g/dl [facility] Red Cell Distribution Width 14.3 11.0 - 16.0 % [facility] Platelet Count 273 160 - 400 X10*3/uL [facility] Mean Platelet Volume 10.8 9.4 - 12.3 fL [facility] Neutrophils Percent Auto 63.3 45 - 73 % [facility] Imm Gran Pct Auto 0.2 0.0 - 0.4 % [facility] Lymphocytes Percent Auto 27.1 20 - 40 % [facility] Monocytes Percent Auto 6.6 2 - 11 % [facility] Eosinophils Percent Auto 2.2 0 - 4 % [facility] Basophils Percent Auto 0.6 0 - 2 % [facility] NRBC Pct Auto 0.0 0.0 - 0.2 /100WBC [facility] Neutrophils Absolute Auto 5.1 2.0 - 8.3 x10*3/uL [facility] Imm Gran Abs Auto 0.02 0.00 - 0.03 X10*3/uL [facility] Lymphocytes Absolute Auto 2.2 1.2 - 4.9 X10*3/uL [facility] Monocytes Absolute Auto 0.5 0.1 - 1.2 X10*3/uL [facility] Eosinophils Absolute Auto 0.2 0.0 - 0.4 X10*3/uL [facility] Basophils Absolute Auto 0.1 0.0 - 0.2 X10*3/uL [facility] NRBC Abs Auto 0.000 0.0 - 0.012 X10*3/uL [facility] Blood Venous blood specimen / Unknown 05/23/2024 10:15 AM EST 05/23/2024 1:57 PM EST us Reilly Mccoy MD LAB BLOOD ORDERABL ES Final Result [facility] [address] [place] [phone] * (ABNORMAL) Iron And Total Iron Binding Capacity (05/23/2024 10:15 AM EST) Iron 38 30 - 160 mcg/dL [facility] Total Iron Binding Capacity 275 228 - 428 mcg/dL [facility] Percent Iron Saturation 14(L) 15 - 50 % [facility] Unsaturated Iron Binding 237 ug/dL [facility] Blood Venous blood specimen / Unknown 05/23/2024 10:15 AM EST 05/23/2024 1:57 PM EST Reilly Mccoy MD LAB BLOOD ORDERABL ES Final Result Performing Organization Address [facility] Co de Phone Number [facility] [address] [place] [phone] * HIV-1 RNA, Quantitative, Real-Time PCR with Reflex to Genotype (RTI, PI, Integrase) (07/06/2022 9:05 AM EST) HIV 1 RNA, QN PCR NOT DETECTED copies/mL [facility], HIV 1 RNA, QN PCR NOT DETECTED Log copies/mL [facility], Comment: REFERENCE RANGE: NOT DETECTED copies/mL ?NOT DETECTED ??Log copies/mL This test was performed using Real-Time Polymerase Chain Reaction. Reportable range is 20 to 10,000,000 copies/mL (1.30-7.00 Log copies/mL). 07/06/2022 9:05 AM EST 07/06/2022 9:06 AM EST Narrative [facility] - 07/13/2022 8:24 PM EST FASTING:YES FASTING: YES Reilly Mccoy MD LAB BLOOD ORDERABL ES Final Result Performing Organization Address City/[facility]/ZIP Co de Phone Number [facility] [address], [place] [address] [place], [address] [place] [address] * Hepatitis C Antibody with Reflex to HCV, RNA, Quantitative, Real-Time PCR (07/06/2022 9:05 AM EST) Hepatitis C Antibody NON-REACT CADY NON-REACT CADY [place] [id number] Index 0.03 <1.00 [place] [id number] Comment: HCV antibody was non-reactive. There is no laboratory evidence of HCV infection. In most cases, no further action is required. However, if recent HCV exposure is suspected, a test for HCV RNA (test code 08154) is suggested. For additional information please refer to http://education.iHELP World/faq/RCK68t4 (This link is being provided for informational/ educational purposes only.) Blood Venous blood specimen / Unknown 07/06/2022 9:05 AM EST 07/06/2022 9:06 AM EST Narrative [facility] - 07/13/2022 8:24 PM EST FASTING:YES FASTING: YES Reilly Mccoy MD LAB BLOOD ORDERABL ES Final Result [facility] [address], [place] [address] [place] [facility] [address] [facility], ([address]) [place] [address] * (ABNORMAL) Lipid Panel, Standard (07/06/2022 9:05 AM EST) Cholesterol, Total 177 <200 mg/dL [place] [id number] HDL Cholesterol 36(L) > OR = 50 mg/dL [place] [id number] Triglycerides 147 <150 mg/dL [place] [id number] LDL Cholesterol 115(H) mg/dL (calc) [place] [id number] Comment: Reference range: <100 Desirable range <100 mg/dL for primary prevention; ?? <70 mg/dL for patients with CHD or diabetic patients with > or = 2 CHD risk factors. LDL-C is now calculated using the Ray calculation, which is a validated novel method providing better accuracy than the Friedewald equation in the estimation of LDL-C. Errol DE LEON et al. GISSELLE. 2013;310(19): 4028-4516 (http://education.Snaapiq/faq/YLP979) Chol/HDLC Ratio 4.9 <5.0 (calc) [facility] Non-HDL Cholesterol 141(H) <130 mg/dL (calc) [facility] Comment: For patients with diabetes plus 1 major ASCVD risk factor, treating to a non-HDL-C goal of <100 mg/dL (LDL-C of <70 mg/dL) is considered a therapeutic option. Blood Venous blood specimen / Unknown 07/06/2022 9:05 AM EST 07/06/2022 9:06 AM EST Narrative [facility] - 07/13/2022 8:24 PM EST FASTING:YES FASTING: YES us Reilly Mccoy MD LAB BLOOD ORDERABL ES Final Result [facility] [address], [place] [address] [place] [id number] [address] [facility], ([address]) [place] [address] * THINPREP TIS PAP (04/04/2022 11:24 AM EST) Clinical Information: None given [facility] COMMENT SEE COMMENT [facility] Comment: EXPLANATORY NOTE: ? The Pap is a screening test for cervical cancer. It is ?? not a diagnostic test and is subject to false negative ?? and false positive results. It is most reliable when a ?? satisfactory sample, regularly obtained, is submitted ?? with relevant clinical findings and history, and when ?? the Pap result is evaluated along with historic and ?? current clinical information. ?? COMMENT: This Pap test has been evaluated with computer assisted technology. [facility] Color Specialist : SEE COMMENT [facility] Comment: MSM, CT(ASCP) CT screening location: [address] ??[address] Infection Shift in vaginal jono suggestive of bacterial vaginosis. [facility] Interpretation/R esult: Negative for intraepithelial lesion or malignancy. [facility] LMP: 04/01/22 [facility] Prev. BX: NONE GIVEN [facility] Prev. PAP: 03/2019 NIL CONVERT ED [facility] SOURCE: None given [facility] Statement Of Adequacy: SEE COMMENT [facility] Comment: Satisfactory for evaluation. Endocervical/transformation zone component present. 04/04/2022 11:2 4 AM EST Malgorzata Woods CNM LAB PATHOLOGY ORDERABLES Final Result [facility] from Last 3 Months or Most Recently Relevant to Health Maintenance Insurance [facility] [place] [address] Care Teams Customer Service Manager Relationship Specialty Start Date End Date Reilly Taylor MD [address] [place] [phone] PCP - General Internal Medicine 10/14/19
--- OUTSIDE RECORDS SUMMARY | 2024-07-04 06:37 | XMS_ITS | Encounter Summary ---
Author Organization [employer] Address [address] [facility] 7[address] [place] [address] Care Team Providers Care Farm Equipment Operator Name Role Phone Reilly Taylor MD Primary Care Prov ider Encounter Details Date Type Department Care Team (Latest Contact Info) Description 06/04/2024 Travel Social History Tobacco Use Types Packs/Day Years [...] Orientation Straight 03/20/2022 10 :29 AM EDT documented as of this encounter Plan of Treatment Upcoming Encounters Date Type Department Care Team (Late st Contact Info) Description 07/28/2024 3:15 PM EDT Telemedicine [facility] MED & PEDS [address] [place] [address] Reilly Taylor MD [address] [place] [address] documented as of this encounter Visit Diagnoses Not on filedocumented in this encounter Additional Health Concerns Assessment Noted Time PHQ-9 Depression Total Score: 1 09/01/19 23 2:22 PM EDT documented as of this encounter Care Teams Farm Equipment Operator Relationship Specialty Start Date End Date Reilly Taylor MD [address] [place] [address] PCP - General Internal Medicine 10/14/19 documented as of this encounter
--- OUTSIDE RECORDS SUMMARY | 2024-07-04 06:37 | XMS_ITS | Encounter Summary ---
Author Organization [employer] Address [address] [place] [address] Care Team Providers Care Field Service Rep Name Role Phone Reilly Taylor MD Primary Care Prov ider Reason for Visit * Reason Onset Date Comments Med Refill 12/13/2022 Encounter Details Date Type Department Care Team (Late Contact Info) Description 12/13/2022 Refill [facility] MEDICINE [address] [place], [place] [phone] Reilly Taylor MD [address] [place] [address] Primary hypertension Social History Tobacco Use Types Packs/Day Years Used Date Smoking Tobacco: Never Assessed Depression Answer Date Recorded Patient Health Questionnaire-9 Score 1 08/31/2022 Depression Answer Date Recorded Patient Health Questionnaire-2 [...] Info) Description 07/28/2024 3:15 PM EDT Telemedicine [facility] MED & PEDS [address] [place], [place] [phone] Reilly Taylor MD [address] [place], [place] [phone] documented as of this encounter Visit Diagnoses Diagnosis Primary hypertension Unspecified essential hypertension documented in this encounter Additional Health Concerns Assessment Noted Time PHQ-9 Depression Total Score: 1 09/01/19 23 2:22 PM EDT documented as of this encounter Care Teams Field Service Rep Relationship Specialty Start Date End Date Reilly Taylor MD [address] [place] [phone] PCP - General Internal Medicine 10/14/19 documented as of this encounter
--- OUTSIDE RECORDS SUMMARY | 2024-07-04 06:37 | XMS_ITS | Encounter Summary ---
Author Organization [employer] Address [address] [facility] 7t [place] [address] Care Team Providers Care Retina Subspecialist Name Role Phone Reilly Taylor MD Primary Care Prov ider Encounter Details Date Type Department Care Team (Latest Contact Info) Description 06/30/2024 Travel Social History Tobacco Use Types Packs/Day [...] Info) Description 07/28/2024 3:15 PM EDT Telemedicine [facility] MED & PEDS [address] [place] [address] Reilly Taylor MD [address] [place] [address] documented as of this encounter Visit Diagnoses Not on filedocumented in this encounter Additional Health Concerns Assessment Noted Time PHQ-9 Depression Total Score: 1 09/01/19 23 2:22 PM EDT documented as of this encounter Care Teams Retina Subspecialist Relationship Specialty Start Date End Date Reilly Taylor MD [address] [place] [address] PCP - General Internal Medicine 10/14/19 documented as of this encounter
--- OUTSIDE RECORDS SUMMARY | 2024-07-04 06:37 | XMS_ITS | Encounter Summary ---
Author Organization [employer] Address [address] [place] [address] Care Team Providers Care Rope Walker Name Role Phone Reilly Taylor MD Primary Care Prov ider Reason for Visit * Reason Onset Date Comments Med Refill 08/29/2023 Encounter Details Date Type Department Care Team ([facility] st Contact Info) Description 08/29/2023 Refill [facility] MED & PEDS [address] [place] [address] Reilly Taylor MD [address] [place] [address] Social History Tobacco Use Types Packs/Day Years [...] Info) Description 07/28/2024 3:15 PM EDT Telemedicine [facility] MED & PEDS [address] [place] [address] Reilly Taylor MD [address] [place] [address] documented as of this encounter Visit Diagnoses Not on filedocumented in this encounter Additional Health Concerns Assessment Noted Time PHQ-9 Depression Total Score: 1 09/01/19 23 2:22 PM EDT documented as of this encounter Care Teams Rope Walker Relationship Specialty Start Date End Date Reilly Taylor MD [address] [place] [address] PCP - General Internal Medicine 10/14/19 documented as of this encounter
--- OUTSIDE RECORDS SUMMARY | 2024-07-04 06:37 | XMS_ITS | Encounter Summary ---
Author Organization [employer] Address [address] [facility] 7 [place] [address] Care Team Providers Care Turbine Blade Assembler Name Role Phone Reilly Taylor MD Primary Care Prov ider Encounter Details Date Type Department Care Team ([facility] Contact Info) Description 06/30/2024 3:15 PM EST Office Visit [facility] MED & PEDS [address] [place], [place] [phone] Reilly Taylor MD [address] [place] [address] Facial rash (Primary Dx); Primary hypertension; Iron deficiency; Dietary counseling; Exercise counseling Social History Tobacco Use Types Packs/Day Years [...] AM EDT documented as of this encounter Last Filed Vital Signs Vital Sign Reading [...] Mass Index 40.51 06/30/2024 3:05 PM EST documented in this encounter Progress Notes * Reilly Mccoy MD - 06/30/2024 3:15 PM EST Subjective Patient ID: Anne Mackay is a 29 y.o. female who presents for No chief complaint on file.. Hypertension This is a chronic problem. Pertinent negatives include no chest pain, headaches, palpitations or shortness of breath. Review of Systems Respiratory: Negative for shortness of breath. Cardiovascular: Negative for chest pain and palpitations. Neurological: Negative for headaches. Objective Physical Exam Constitutional: Appearance: Normal appearance. Cardiovascular: Rate and Rhythm: Normal rate and regular rhythm. Heart sounds: No murmur heard. Pulmonary: Effort: Pulmonary effort is normal. No respiratory distress. Breath sounds: No stridor. No wheezing or rhonchi. Neurological: General: No focal deficit present. Mental Status: She is alert and oriented to person, place, and time. Psychiatric: Mood and Affect: Mood normal. Behavior: Behavior normal. Assessment/Plan Problem List Items Addressed This Visit Iron deficiency Relevant Medications ferrous sulfate (FeroSul) 325 (65 Fe) MG tablet Primary hypertension Will renew medications, told to keep a low sodium diet, exercise as tolerated, keep bp log, Relevant Medications hydroCHLOROthiazide (HYDRODiuril) 25 MG tablet lisinopril 40 MG tablet Other Relevant Orders CBC auto differential Iron And Total Iron Binding Capacity Comprehensive Metabolic Panel Lipid Panel, Standard TSH W/Reflex to FT4 Other Visit Diagnoses Facial rash - Primary Relevant Orders Lupus Anticoagulant Evaluation with Reflex Sed Rate by Modified [place]gren C-reactive Protein Cyclic Citrullinated Peptide (CCP) Antibody (IgG) Rheumatoid Factor DNA (ds) Antibody Dietary counseling Exercise counseling documented in this encounter Miscellaneous Notes * Assessment & Plan Note - Reilly Mccoy MD - 06/30/2024 4:26 PM ESTAssociated Problem(s): Primary hypertension Will renew medications, told to keep a low sodium diet, exercise as tolerated, keep bp log, documented in this encounter Plan of Treatment Upcoming Encounters Date Type Department Care Team (Late st Contact Info) Description 07/28/2024 3:15 PM EDT Telemedicine [facility] MED & PEDS [address] [place] [address] Reilly Taylor MD [address] [place] [address] Scheduled Orders Name Type Priority Associated Diagnoses Orde r Schedule Lupus Anticoagulant Evaluation with Reflex Lab Routine Facial rash Expected: 06/30/2024 (Approximate), Expires: 06/30/2025 Sed Rate by Modified W[place]gren Lab Routine Facial rash Expected: 06/30/2024, Expires: 06/30/2025 C-reactive Protein Lab Routine Facial rash Expected: 06/30/2024 (Approximate), Expires: 06/30/2025 Cyclic Citrullinated Peptide (CCP) Antibody (IgG) Lab Routine Facial rash Expected: 06/30/2024 (Approximate), Expires: 06/30/2025 Rheumatoid Factor Lab Routine Facial rash Expected: 06/30/2024, Expires: 06/30/2025 DNA (ds) Antibody Lab Routine Facial rash Expected: 06/30/2024 (Approximate), Expires: 06/30/2025 CBC auto differential Lab Routine Primary hypertension Expected: 06/30/2024 (Approximate), Expires: 06/30/2025 Iron And Total Iron Binding Capacity Lab Routine Primary hypertension Expected: 06/30/2024, Expires: 06/30/2025 Comprehensive Metabolic Panel Lab Routine Primary hypertension Expected: 06/30/2024 (Approximate), Expires: 06/30/2025 Lipid Panel, Standard Lab Routine Primary hypertension Expected: 06/30/2024 (Approximate), Expires: 06/30/2025 TSH W/Reflex to FT4 Lab Routine Primary hypertension Expected: 06/30/2024 (Approximate), Expires: 06/30/2025 documented as of this encounter Visit Diagnoses Diagnosis Facial rash- Primary Primary hypertension Unspecified essential hypertension Iron deficiency Disorders of iron metabolism Dietary counseling Dietary surveillance and counseling Exercise counseling documented in this encounter Additional Health Concerns Assessment Noted Time PHQ-9 Depression Total Score: 1 09/01/19 23 2:22 PM EDT documented as of this encounter Care Teams Turbine Blade Assembler Relationship Specialty Start Date End Date Reilly Taylor MD [address] [place] [id number] PCP - General Internal Medicine 10/14/19 documented as of this encounter
[2024-07-04 06:57] LABS: MANUAL DIFF FLAG NO
[2024-07-04 07:14] LABS: Basophils Percent Auto 0.5 % (0-2); Eosinophils Absolute Auto 0.1 X10*3/uL (0.0-0.4); Eosinophils Percent Auto 1.7 % (0-4); Hematocrit 37.4 % (37.0-47.0); Hemoglobin 12.8 g/dl (12.0-16.0); Imm Gran Abs Auto 0.02 X10*3/uL (0.00-0.03); Imm Gran Pct Auto 0.3 % (0.0-0.4); Lymphocytes Absolute Auto 1.9 X10*3/uL (1.2-4.9); Lymphocytes Percent Auto 29.7 % (20-40); Mean Corpuscular HGB Conc 34.2 g/dl (31.0-35.0); Mean Corpuscular Hemoglobin 25.5 pg (27.0-33.0); Mean Corpuscular Volume 74.7 fL (80.0-98.0); Mean Platelet Volume 9.9 fL (9.4-12.3); Monocytes Absolute Auto 0.4 X10*3/uL (0.1-1.2); Monocytes Percent Auto 6.8 % (2-11); Neutrophils Absolute Auto 3.9 x10*3/uL (2.0-8.3); Platelet Count 290 X10*3/uL (160-400); Red Blood Count 5.01 X10*6/uL (4.20-5.50); Red Cell Distribution Width 14.1 % (11.0-16.0); White Blood Count 6.3 X10*3/uL (4.8-10.8)
[2024-07-04 07:54] LABS: Rheumatoid Factor < 13.0 IU/mL (<15.0)
[2024-07-04 07:57] LABS: Alanine Aminotransferase 28 U/L (0-31); Albumin Level 4.3 g/dL (3.5-5.0); Alkaline Phosphatase 97 U/L (39-117); Anion Gap 13 (12-20); Aspartate Amino Transferase 26 U/L (5-31); Bilirubin Total 1.2 mg/dL (0.0-1.0); Blood Urea Nitrogen 10 mg/dL (9-16); C Reactive Protein 1.15 mg/dL (< or = 0.50); Calcium 9.6 mg/dL (8.4-10.2); Carbon Dioxide 27 mmol/L (22-29); Chloride 100 mmol/L (96-108); Cholesterol 164 mg/dL (<200); Estimated Glomerular Filt Rate > 60; Glucose Random 99 mg/dL (60-115); HDL Cholesterol 34 mg/dL (>40); Iron 39 mcg/dL (30-160); LDL Cholesterol Calculated 104 mg/dL (<100); Percent Iron Saturation 13 % (15-50); Potassium 3.7 mmol/L (3.3-5.1); Sodium 136 mmol/L (135-145); Total Iron Binding Capacity 298 mcg/dL (228-428); Total Protein 8.1 g/dL (6.5-8.0); Triglycerides 134 mg/dL (<150); Unsaturated Iron Binding 259 ug/dL
[2024-07-04 07:58] LABS: Erythrocyte Sedimentation Rate 16 MM/HR (0-20)
[2024-07-07 22:28] LABS: Anti DNA DS Antibody <1 IU/mL
[2024-07-08 18:58] LABS: Cyclic Citrullinated Peptide <16 UNITS
[2024-07-10 21:29] LABS: PTT (LAC) Screen 33 sec (<=40)
== END 2024-07-04 06:36 | disposition home or self-care (01) ==
LOC: HO.LAB 06:35
PROVIDERS: PCP Internal Medicine; Visit Provider Internal Medicine
DX: R21 Rash and other nonspecific skin eruption (principal); I10 Essential (primary) hypertension
CPT/HCPCS: 36415; 80053; 80061; 83540; 84443; 85025; 85597; 85598; 85613; 85652; 85730; 86140; 86200; 86225; 86431

== ENCOUNTER 2024-09-18 08:17 | Outpatient (REF) | payer OTHER, SELFPAY ==
--- OUTSIDE RECORDS SUMMARY | 2024-09-18 16:34 | XMS_ITS | Encounter Summary ---
Author Organization [facility] [employer] Address [address] [place] [address] Care Team Providers Care Grid Caster Name Role Phone Reilly Taylor MD Primary Care Prov ider Reason for Visit * Reason Onset Date Comments Med Refill 08/29/2023 Encounter Details Date Type Department Care Team ([facility] st Contact Info) Description 08/29/2023 Refill [facility] [address] [place] [address] Reilly Taylor MD [address] [place] [address] Social History Tobacco Use Types Packs/Day Years [...] Info) Description 11/03/2024 3:30 PM EDT Telemedicine [facility] [address] [place] [address] Reilly Taylor MD [address] [place] [address] documented as of this encounter Visit Diagnoses Not on filedocumented in this encounter Additional Health Concerns Assessment Noted Time PHQ-9 Depression Total Score: 1 09/01/19 23 2:22 PM EDT documented as of this encounter Care Teams Grid Caster Relationship Specialty Start Date End Date Reilly Taylor MD [address] [place] [address] PCP - General Internal Medicine 10/14/19 documented as of this encounter
--- OUTSIDE RECORDS SUMMARY | 2024-09-18 16:34 | XMS_ITS | Clinical Summary ---
Author Organization [employer] Address [address] [place] [address] 7[address] [place] [address] Care Team Providers Care Drencher Name Role Phone Reilly Taylor MD Primary Care Prov ider Allergies No known active allergies Medications Blood Pressure kit 1 kit in the morning. 1 kit 03/29/20 23 Active hydroCHLOROthia zide (HYDRODiuril) 25 MG tabletIndicatio [...] 90 tablet 3 06/30/19 25 026 Active cetirizine (ZyrTEC) 10 MG tablet Take 1 tablet (10 mg) by mouth Once per day. 30 tablet 11 07/09/19 25 026 Active Emollient (Cetaphil) moisturizing lotion APPLY TOPICALLY TWICE A DAY 237 mL 1 09/19/19 25 Active Emollient (Cetaphil) moisturizing lotion Apply topically 2 times daily. 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 Iron deficiency 06/14/2022 Assessment & Plan (07/28/2024 [...] Plan (06/14/2022 2:37 PM EST): Controlled, saw gear finisher who ordered a abd/pelvic ct scan to r/o renal artery stenosis, will order new labs and follow up in 3 months Encounters Date Type Department Care Team Description 09/18/2024 Telephone [facility] MED & PEDS [address] [place] [address] Reilly Taylor MD billing statement 09/16/2024 Refill [facility] [address] [place] [address] Reilly Taylor MD 08/21/2024 Telephone [facility] MEDICINE [address] [place], [place] [phone] Reilly Taylor MD Referral 07/28/2024 3:15 PM EDT Telemedicine [facility] [address] [place] [address] Reilly Taylor MD Primary hypertension (Primary Dx); Iron deficiency; Menorrhagia with regular cycle 07/28/2024 Travel 07/25/2024 Telephone [facility] [address] [place] [address] Reilly Taylor MD chart prep 07/05/2024 Refill [facility] [address] [place] [address] Reilly Taylor MD 06/30/2024 3:15 PM EST Office Visit [facility] [address] [place], [place] [phone] Reilly Taylor MD Facial rash (Primary Dx); [...] Info) Description 11/03/2024 3:30 PM EDT Telemedicine [facility] [address] [place] [address] Reilly Taylor MD [address] [place] [address] Health Maintenance Due Date Last Done Comments [...] Free T4 2.30 0.32 - 4.0 uIU/mL [facility] Blood Venous blood specimen / Unknown 07/04/2024 6:55 AM EST 07/04/2024 6:55 AM EST us Reilly Mccoy MD LAB BLOOD ORDERABL ES Final Result [facility] [address] [place] [phone] * (ABNORMAL) CBC auto differential (07/04/2024 6:55 AM EST) White Blood Count 6.3 4.8 - 10.8 X10*3/uL [facility] Red Blood Count 5.01 4.20 - 5.50 X10*6/uL [facility] Hemoglobin 12.8 12.0 - 16.0 g/dl [facility] Hematocrit 37.4 37.0 - 47.0 % [facility] Mean Corpuscular Volume 74.7(L) 80.0 - 98.0 fL [facility] Mean Corpuscular Hemoglobin 25.5(L) 27.0 - 33.0 pg [facility] Mean Corpuscular HGB Conc 34.2 31.0 - 35.0 g/dl [facility] Red Cell Distribution Width 14.1 11.0 - 16.0 % [facility] Platelet Count 290 160 - 400 X10*3/uL [facility] Mean Platelet Volume 9.9 9.4 - 12.3 fL [facility] Neutrophils Percent Auto 61.0 45 - 73 % [facility] Imm Gran Pct Auto 0.3 0.0 - 0.4 % [facility] Lymphocytes Percent Auto 29.7 20 - 40 % [facility] Monocytes Percent Auto 6.8 2 - 11 % [facility] Eosinophils Percent Auto 1.7 0 - 4 % [facility] Basophils Percent Auto 0.5 0 - 2 % [facility] NRBC Pct Auto 0.0 0.0 - 0.2 /100WBC [facility] Neutrophils Absolute Auto 3.9 2.0 - 8.3 x10*3/uL [facility] Imm Gran Abs Auto 0.02 0.00 - 0.03 X10*3/uL [facility] Lymphocytes Absolute Auto 1.9 1.2 - 4.9 X10*3/uL [facility] Monocytes Absolute Auto 0.4 0.1 - 1.2 X10*3/uL [facility] Eosinophils Absolute Auto 0.1 0.0 - 0.4 X10*3/uL [facility] Basophils Absolute Auto 0.0 0.0 - 0.2 X10*3/uL [facility] NRBC Abs Auto 0.000 0.0 - 0.012 X10*3/uL [facility] Blood Venous blood specimen / Unknown 07/04/2024 6:55 AM EST 07/04/2024 6:55 AM EST Reilly Mccoy MD LAB BLOOD ORDERABL ES Final Result Performing Organization Address [facility] de Phone Number [facility] [address] [place] [phone] * Cyclic Citrullinated Peptide (CCP) Antibody (IgG) (07/04/2024 6:55 AM EST) Pathologist [facility] Cyclic Citrullinated Peptide <16 UNITS [facility] Comment:Reference RangeNegat kvng: <20Weak Positive: 20-39Moderate Positive: 40-59Strong Positive: >59THIS TEST WAS PERFORMED AT:[facility] [address] [id number] TRONCOSO MD Blood Venous blood specimen / Unknown 07/04/2024 6:55 AM EST 07/04/2024 6:55 AM EST Reilly Mccoy MD LAB BLOOD ORDERABL ES Final Result Performing Organization Address [facility] Co de Phone Number [facility] [address] [place] [phone] * (ABNORMAL) Iron And Total Iron Binding Capacity (07/04/2024 6:55 AM EST) Iron 39 30 - 160 mcg/dL [facility] Total Iron Binding Capacity 298 228 - 428 mcg/dL [facility] Percent Iron Saturation 13(L) 15 - 50 % [facility] Unsaturated Iron Binding 259 ug/dL [facility] Blood Venous blood specimen / Unknown 07/04/2024 6:55 AM EST 07/04/2024 6:55 AM EST Reilly Mccoy MD LAB BLOOD ORDERABL ES Final Result Performing Organization Address [facility] Phone Number [facility] [address] [place] [phone] * DNA (ds) Antibody (07/04/2024 6:55 AM EST) Pathologist [facility] Anti DNA DS Antibody <1 IU/mL [facility] Comment:IU/mL Interpretation < or = 4 Negative 5-9 Indeterminate > or = 10 PositiveTHIS TEST WAS PERFORMED AT:[facility] [address] [id number] TRONCOSO MD Blood Venous blood specimen / Unknown 07/04/2024 6:55 AM EST 07/04/2024 6:55 AM EST Reilly Mccoy MD LAB BLOOD ORDERABL ES Final Result Performing Organization Address [facility] Number [facility] [address] [place] [phone] * Lupus Anticoagulant Evaluation with Reflex (07/04/2024 6:55 AM EST) Pathologist [facility] Lupus Interpretation see note [facility] Comment:A Lupus Anticoagulan t is not detected.Reference Range: Not DetectedFor additional information, please refer tohttp://education.[employer]/faq/BFG24g7(This link is being provided for informational/educational purposes only.)This interpretation is based on the following testresults. PTT (LAC) Screen 33 <=40 sec [facility] DRVVT Screen 30 <=45 sec [facility] Comment:THIS TEST WAS PERFOR MED AT:[facility]/[id number] [place] [address]GIPYFBGACE SAAVEDRA MD,PHD dRVVT Confirmation TNP [facility] dRVVT 1:1 Mix TNP [facility] DRVVT 1:1 Mix Interpretation [facility] Hexagonal Phase Neutralization [facility] Thrombin Clotting Time [facility] Blood Venous blood specimen / Unknown 07/04/2024 6:55 AM EST 07/04/2024 6:55 AM EST us Reilly Mccoy MD LAB BLOOD ORDERABL ES Final Result Performing Organization Address [facility] Co de Phone Number [facility] [address] [place] [phone] * Sed Rate by Modified Dominicren (07/04/2024 6:55 AM EST) Erythrocyte Sedimentation Rate 16 0 - 20 MM/HR [facility] Comment:Patients with polycy themia and many hemoglobin abnormalitiesmay have depressed sed rates whereas patients with anemiamay have elevated sed rates. Blood Venous blood specimen / Unknown 07/04/2024 6:55 AM EST 07/04/2024 6:55 AM EST us Reilly Mccoy MD LAB BLOOD ORDERABL ES Final Result Performing Organization Address City/[facility] Co de Phone Number [facility] [address] [place] [phone] * Rheumatoid Factor (07/04/2024 6:55 AM EST) Rheumatoid Factor <13.0 <15.0 IU/mL [facility] Blood Venous blood specimen / Unknown 07/04/2024 6:55 AM EST 07/04/2024 6:55 AM EST Reilly Mccoy MD LAB BLOOD ORDERABL ES Final Result Performing Organization Address City/[facility]/ZIP Co de Phone Number [facility] [address] [place] [phone] * (ABNORMAL) C-reactive Protein (07/04/2024 6:55 AM EST) C Reactive Protein 1.15(H) < or = 0.50 mg/dL [facility] Blood Venous blood specimen / Unknown 07/04/2024 6:55 AM EST 07/04/2024 6:55 AM EST Reilly Mccoy MD LAB BLOOD ORDERABL ES Final Result Performing Organization Address [facility] Co de Phone Number [facility] [address] [place] [phone] * (ABNORMAL) Lipid Panel, Standard (07/04/2024 6:55 AM EST) Triglycerides 134 <150 mg/dL [facility] Comment:Desirable Triglyceri de: less than 150 mg/dLBorderline High Triglyceride 150-199 mg/dLHigh Triglyceride: 200-499 mg/dLVery High Triglyceride: greater than or equal to 5OO mg/dL Cholesterol 164 <200 mg/dL [facility] Comment:Desirable Cholestero l: less than 200 mg/dLBorderline High Cholesterol: 200-239 mg/dLHigh Cholesterol: greater than 239 mg/dL LDL Cholesterol Calculated 104(H) <100 mg/dL [facility] Comment:Desirable LDL: less than 100 mg/dLNear Optimal/Above Optimal LDL: 110- 129 mg/dLBorderline High LDL: 130-159 mg/dLHigh LDL: 160-189 mg/dLVery High LDL: greater than or equal to 190 mg/dL HDL Cholesterol 34(L) >40 mg/dL [facility] Comment:Desirable HDL: great er than 40 mg/dL Note: This HDL assay may give artificially low results in patients with liver disease. Blood Venous blood specimen / Unknown 07/04/2024 6:55 AM EST 07/04/2024 6:55 AM EST us Reilly Mccoy MD LAB BLOOD ORDERABL ES Final Result Performing Organization Address City/[facility]/ZIP Co de Phone Number [facility] [address] [place] [phone] * (ABNORMAL) Comprehensive Metabolic Panel (07/04/2024 6:55 AM EST) Sodium 136 135 - 145 mmol/L [facility] Potassium 3.7 3.3 - 5.1 mmol/L [facility] Chloride 100 96 - 108 mmol/L [facility] Carbon Dioxide 27 22 - 29 mmol/L [facility] Anion Gap 13 12 - 20 [facility] Urea Nitrogen (BUN) 10 9 - 16 mg/dL [facility] Creatinine, Serum 0.66 0.5 - 1.4 mg/dL [facility] Estimated Glomerular Filt Rate >60 [facility] Comment:Chronic Kidney Disea se: Estimated GFR < 60 mL/min/1.22u5Tgsllu Kidney Disease: Estimated GFR < 15 mL/min/1.73m2 Glucose 99 60 - 115 mg/dL [facility] Calcium 9.6 8.4 - 10.2 mg/dL [facility] Bilirubin, Total 1.2(H) 0.0 - 1.0 mg/dL [facility] Aspartate Amino Transferase 26 5 - 31 U/L [facility] Alanine Aminotransferase 28 0 - 31 U/L [facility] Total Protein 8.1(H) 6.5 - 8.0 g/dL [facility] Albumin Level 4.3 3.5 - 5.0 g/dL [facility] Alkaline Phosphatase 97 39 - 117 U/L [facility] Blood Venous blood specimen / Unknown 07/04/2024 6:55 AM EST 07/04/2024 6:55 AM EST us Reilly Mccoy MD LAB BLOOD ORDERABL ES Final Result Performing Organization Address City/[facility]/ZIP Co de Phone Number [facility] [address] [place] [phone] * HIV-1 RNA, Quantitative, Real-Time PCR with Reflex to Genotype (RTI, PI, Integrase) (07/06/2022 9:05 AM EST) Pathologist [facility] HIV 1 RNA, QN PCR NOT DETECTED copies/mL [facility], HIV 1 RNA, QN PCR NOT DETECTED Log copies/mL [facility], Comment: REFERENCE RANGE: NOT DETECTED copies/mL ?NOT DETECTED ??Log copies/mL This test was performed using Real-Time Polymerase Chain Reaction. Reportable range is 20 to 10,000,000 copies/mL (1.30-7.00 Log copies/mL). 07/06/2022 9:05 AM EST 07/06/2022 9:06 AM EST Narrative [facility] - 07/13/2022 8:24 PM EST FASTING:YES FASTING: YES Reilly Mccoy MD LAB BLOOD ORDERABL ES Final Result [facility] [address], [place] [address] [facility], [address] [place] [address] * Hepatitis C Antibody with Reflex to HCV, RNA, Quantitative, Real-Time PCR (07/06/2022 9:05 AM EST) Pathologist [facility] Hepatitis C Antibody NON-REACT KVNG NON-REACT KVNG [facility] [place] TELA Biot Index 0.03 <1.00 [facility] [place] [facility] Comment: HCV antibody was non-reactive. There is no laboratory evidence of HCV infection. In most cases, no further action is required. However, if recent HCV exposure is suspected, a test for HCV RNA (test code 31620) is suggested. For additional information please refer to http://education.[employer]/faq/CGX31i1 (This link is being provided for informational/ educational purposes only.) Blood Venous blood specimen / Unknown 07/06/2022 9:05 AM EST 07/06/2022 9:06 AM EST Narrative [facility] - 07/13/2022 8:24 PM EST FASTING:YES FASTING: YES Reilly Mccoy MD LAB BLOOD ORDERABL ES Final Result [facility] [address] [place] [address], 3rd Fl, [place] [address] [facility] [address] [facility], (Nl2) [place] [address] * THINPREP TIS PAP (04/04/2022 11:24 AM [...] with computer assisted technology. [facility] Durable Medical Equipment Repairer : SEE COMMENT [facility] Comment: MSM, CT(ASCP) CT screening location: [address] ??[phone] Infection Shift in vaginal jono suggestive of [...] present. 04/04/2022 11:2 4 AM EST [facility] LAB PATHOLOGY ORDERABLES Final Result [facility] from Last 3 Months or Most Recently Relevant to Health Maintenance Insurance [facility] Address: [address] [phone] Care Teams Drencher Relationship Specialty Start Date End Date Reilly Taylor MD [address] [place] [phone] PCP - General Internal Medicine 10/14/19
--- OUTSIDE RECORDS SUMMARY | 2024-09-18 16:34 | XMS_ITS | Encounter Summary ---
Author Organization [employer] [facility] Address [address] [place] [phone] Care Team Providers Care Specification Consultant Name Role Phone Reilly Taylor MD Primary Care Prov ider Reason for Visit * Reason Onset Date Comments Med Refill 12/13/2022 Encounter Details Date Type Department Care Team (Late Contact Info) Description 12/13/2022 Refill [facility] MEDICINE [address] [place], [place] [phone] Reilly Taylor MD [address] [place], [place] [phone] Primary hypertension Social History Tobacco Use Types [...] Info) Description 11/03/2024 3:30 PM EDT Telemedicine [facility]S [address] [place], [place] [phone] Reilly Taylor MD [address] [place], [place] [phone] documented as of this encounter Visit Diagnoses Diagnosis Primary hypertension Unspecified essential hypertension documented in this encounter Additional Health Concerns Assessment Noted Time PHQ-9 Depression Total Score: 1 09/01/19 23 2:22 PM EDT documented as of this encounter Care Teams Specification Consultant Relationship Specialty Start Date End Date Reilly Taylor MD [address] [place] [address] PCP - General Internal Medicine 10/14/19 documented as of this encounter
--- OUTSIDE RECORDS SUMMARY | 2024-09-18 16:34 | XMS_ITS | Encounter Summary ---
Author Organization [employer] Address [address] [place] [address] Care Team Providers Care Boilermaker'S Assistant Name Role Phone Reilly Taylor MD Primary Care Prov ider Reason for Visit * Reason Onset Date Comments Med Refill 09/16/2024 Encounter Details Date Type Department Care Team ([facility] st Contact Info) Description 09/16/2024 Refill [facility] MED & PEDS [address] [place] [address] Reilly Taylor MD [address] [place] [address] Social History Tobacco Use Types Packs/Day Years [...] Info) Description 11/03/2024 3:30 PM EDT Telemedicine [facility] MED & PEDS [address] [place] [address] Reilly Taylor MD [address] [place] [address] documented as of this encounter Visit Diagnoses Not on filedocumented in this encounter Additional Health Concerns Assessment Noted Time PHQ-9 Depression Total Score: 1 09/01/19 23 2:22 PM EDT documented as of this encounter Care Teams Boilermaker'S Assistant Relationship Specialty Start Date End Date Reilly Taylor MD [address] [place] [address] PCP - General Internal Medicine 10/14/19 documented as of this encounter
--- OUTSIDE RECORDS SUMMARY | 2024-09-18 16:34 | XMS_ITS | Encounter Summary ---
Author Organization [employer] Address [address] [facility] 7 [place] [address] Care Team Providers Care Outboard Motorboat Operator Name Role Phone Reilly Taylor MD Primary Care Prov ider Reason for Visit * Reason Onset Date Comments billing statement 09/18/2024 Encounter Details Date Type Department Care Team ([facility] Contact Info) Description 09/18/2024 Telephone [facility] MED & PEDS [address] [place], [place] [phone] Reilly Talyor MD [address] [place] [address] billing statement Social History Tobacco Use Types Packs/Day Years [...] encounter Miscellaneous Notes * Telephone Encounter - Debbie Ryan - 09/18/2024 10:03 AM EDT Pt states has a bill and states she has MH and would like the account re billed please documented in this encounter Plan of Treatment Upcoming Encounters Date Type Department Care Team (Late st Contact Info) Description 11/03/2024 3:30 PM EDT Telemedicine [facility] [address] [place] [address] Reilly Taylor MD [address] [place] [address] documented as of this encounter Visit Diagnoses Not on filedocumented in this encounter Additional Health Concerns Assessment Noted Time PHQ-9 Depression Total Score: 1 09/01/19 23 2:22 PM EDT documented as of this encounter Care Teams Outboard Motorboat Operator Relationship Specialty Start Date End Date Reilly Taylor MD [address] [place] [address] PCP - General Internal Medicine 10/14/19 documented as of this encounter
--- OUTSIDE RECORDS SUMMARY | 2024-09-18 16:34 | XMS_ITS | Clinical Summary ---
Author Organization [facility] Address [address] [place] [address] Care Team Providers Care Physiotherapy Practice Manager Name Role Phone Reilly Ocasio MD Primary Care Provider [phone] Allergies No known active allergies Medications Medication [...] age to complete this topic Care Teams Physiotherapy Practice Manager Relationship Specialty Start Date End Date Reilly Ocasio MD [address] [place] [phone] PCP - General Internal Medicine 07/27/21
--- OUTSIDE RECORDS SUMMARY | 2024-09-18 16:34 | XMS_ITS | Encounter Summary ---
Author Organization [employer] Address 75 [facility] 7 [place] [address] Care Team Providers Care Manager Laundry Name Role Phone Reilly Taylor MD Primary Care Prov ider Reason for Visit * Reason Onset Date Comments Referral 08/21/2024 Encounter Details Date Type Department Care Team (Late st Contact Info) Description 08/21/2024 Telephone [facility] MEDICINE [address] [place] [address] Reilly Taylor MD [address] [place] [address] Referral Social History Tobacco Use Types Packs/Day [...] a referral for hematology. Contact pt at [phone] documented in this encounter Plan of Treatment Upcoming Encounters Date Type Department Care Team (Late st Contact Info) Description 11/03/2024 3:30 PM EDT Telemedicine [facility]S [address] [place] [address] Reilly Taylor MD [address] [place] [address] documented as of this encounter Visit Diagnoses Not on filedocumented in this encounter Additional Health Concerns Assessment Noted Time PHQ-9 Depression Total Score: 1 09/01/19 23 2:22 PM EDT documented as of this encounter Care Teams Manager Laundry Relationship Specialty Start Date End Date Reilly Taylor MD [address] [place] [address] PCP - General Internal Medicine 10/14/19 documented as of this encounter
[2024-09-18 17:55] LABS: Bacterial Vaginosis PCR POSITIVE (Negative); Candida Group PCR NOT DETECTED (Not Detect); Candida glab krusei PCR NOT DETECTED (Not Detect); Trichomonas vaginalis PCR NOT DETECTED (Not Detect)
[2024-09-18 18:28] LABS: CT PCR NOT DETECTED (Not Detect.); NG PCR NOT DETECTED (Not Detect.)
== END 2024-09-18 08:18 | disposition home or self-care (01) ==
LOC: HO.LNP 08:17
PROVIDERS: PCP Internal Medicine; Visit Provider Advanced Practice Midwife
DX: I10 Essential (primary) hypertension (principal); N92.1 Excessive and frequent menstruation with irregular cycle; L68.0 Hirsutism; E66.01 Morbid (severe) obesity due to excess calories
CPT/HCPCS: 81515; 87491; 87591; 99202

== ENCOUNTER 2024-09-18 12:55 | Outpatient (AMB) | payer OTHER, SELFPAY ==
--- OUTSIDE RECORDS SUMMARY | 2024-09-18 08:28 | XMS_ITS | Encounter Summary ---
Author Organization [employer] Address [address] [facility] 7 [place] [address] Care Team Providers Care Material Chaser Name Role Phone Reilly Taylor MD Primary Care Prov ider Reason for Visit * Reason Onset Date Comments Med Refill 08/29/2023 Encounter Details Date Type Department Care Team ([facility] st Contact Info) Description 08/29/2023 Refill [facility] MED & PEDS [address] [place] [address] Reilly Taylor MD [address] [place] [address] Social History Tobacco Use Types Packs/Day Years [...] Care Team (Late st Contact Info) Description 11/03/2024 3:30 PM EDT Telemedicine [facility] MED & PEDS [address] [place] [address] Reilly Taylor MD [address] [place] [address] documented as of this encounter Visit Diagnoses Not on filedocumented in this encounter Additional Health Concerns Assessment Noted Time PHQ-9 Depression Total Score: 1 09/01/19 23 2:22 PM EDT documented as of this encounter Care Teams Material Chaser Relationship Specialty Start Date End Date Reilly Taylor MD [address] [place] [address] PCP - General Internal Medicine 10/14/19 documented as of this encounter
--- OUTSIDE RECORDS SUMMARY | 2024-09-18 08:28 | XMS_ITS | Encounter Summary ---
Author Organization [employer] [facility] Address [address] [place] [address] Care Team Providers Care Order Builder Name Role Phone Reilly Taylor MD Primary Care Prov ider Reason for Visit * Reason Onset Date Comments Med Refill 12/13/2022 Encounter Details Date Type Department Care Team (Late Contact Info) Description 12/13/2022 Refill [facility] MEDICINE [address] [place], [place] [phone] Reilly Taylor MD [address] [place], [place] [phone] Primary hypertension Social History Tobacco Use Types [...] Info) Description 11/03/2024 3:30 PM EDT Telemedicine [facility] CHC MED & PEDS [address] [place], [place] [phone] Reilly Taylor MD [address] [place], [place] [phone] documented as of this encounter Visit Diagnoses Diagnosis Primary hypertension Unspecified essential hypertension documented in this encounter Additional Health Concerns Assessment Noted Time PHQ-9 Depression Total Score: 1 09/01/19 23 2:22 PM EDT documented as of this encounter Care Teams Order Builder Relationship Specialty Start Date End Date Reilly Taylor MD [address] [place] [address] PCP - General Internal Medicine 10/14/19 documented as of this encounter
--- OUTSIDE RECORDS SUMMARY | 2024-09-18 08:28 | XMS_ITS | Encounter Summary ---
Author Organization [employer] Address [address] [place] [address] Care Team Providers Care Religious Leader Name Role Phone Reilly Taylor MD Primary Care Prov ider Reason for Visit * Reason Onset Date Comments Med Refill 09/16/2024 Encounter Details Date Type Department Care Team ([facility] st Contact Info) Description 09/16/2024 Refill [facility] MED & PEDS [address] [place] [address] Reilly Taylor MD [address] [place] [address] Social History Tobacco Use Types Packs/Day Years [...] Info) Description 11/03/2024 3:30 PM EDT Telemedicine [facility] MED & PEDS [address] [place] [address] Reilly Taylor MD [address] [place] [address] documented as of this encounter Visit Diagnoses Not on filedocumented in this encounter Additional Health Concerns Assessment Noted Time PHQ-9 Depression Total Score: 1 09/01/19 23 2:22 PM EDT documented as of this encounter Care Teams Religious Leader Relationship Specialty Start Date End Date Reilly Taylor MD [address] [place] [address] PCP - General Internal Medicine 10/14/19 documented as of this encounter
--- OUTSIDE RECORDS SUMMARY | 2024-09-18 08:28 | XMS_ITS | Clinical Summary ---
Author Organization [employer] Address [address] [place] [address] [address] [place] [address] Care Team Providers Care Truck Assembler Name Role Phone Reilly Taylor MD Primary Care Prov ider Allergies No known active allergies Medications Blood Pressure kit 1 kit in the morning. 1 kit 3 Active hydroCHLOROthiazi de (HYDRODiuril) 25 MG tabletIndications :Primary hypertension Take 1 tablet (25 mg) by mouth in the morning. 90 tablet 3 5 Active lisinopril 40 MG tabletIndications :Primary hypertension Take 1 tablet (40 mg) by mouth in the morning. 90 tablet 3 5 Active ferrous sulfate (FeroSul) 325 (65 Fe) MG tabletIndications :Iron deficiency Take 1 tablet (325 mg) by mouth with breakfast. 90 tablet 3 5 06/30/19 26 Active cetirizine (ZyrTEC) 10 MG tablet Take 1 tablet (10 mg) by mouth Once per day. 30 tablet 11 5 07/09/19 26 Active Emollient (Cetaphil) moisturizing lotion Apply topically 2 times daily. 237 mL 1 5 Active Active Problems Problem Noted Date Diagnosed Date Menorrhagia with regular cycle 07/28/2024 Assessment & Plan (07/28/2024 4:04 PM EDT): Will refer to ob-rubber splicer, she is also complaining of episodes of hot flashes Allergy 07/23/2023 Assessment & Plan (07/23/2023 8:51 AM EST): Patient refers ever since being exposed to a new plastic material at her job she has been suffering from allergies, told to continue with zyrtec, will refer to railroad track inspector Iron deficiency 06/14/2022 Assessment & Plan (07/28/2024 4:02 PM EDT): Told to follow up with hematology, she has been taking oral iron replacement every other day Assessment & Plan (10/11/2023 11:31 AM EDT): [...] therapy Primary hypertension 06/14/2022 Assessment & Plan (07/28/2024 4:01 PM EDT): Controlled, continue low sodium diet and exercise as tolerated Assessment & Plan (06/30/2024 4:26 PM EST): [...] Plan (06/14/2022 2:37 PM EST): Controlled, saw jira administrator who ordered a abd/pelvic ct scan to r/o renal artery stenosis, will order new labs and follow up in 3 months Encounters Date Type Department Care Team Description 09/16/2024 Refill [facility] [address] [place] [address] Reilly Taylor MD 08/21/2024 Telephone [facility] MEDICINE [address] [place] [address] Reilly Taylor MD Referral 07/28/2024 3:15 PM EDT Telemedicine [facility] [address] [place] [address] Reilly Taylor MD Primary hypertension (Primary Dx); Iron deficiency; Menorrhagia with regular cycle 07/28/2024 Travel 07/25/2024 Telephone [facility] [address] [place] [address] Reilly Taylor MD chart prep 07/05/2024 Refill [facility] [address] [place] [address] Reilly Taylor MD 06/30/2024 3:15 PM EST Office Visit [facility] [address] [place] [address] Reilly Taylor MD Facial rash (Primary Dx); Primary hypertension; Iron deficiency; Dietary counseling; Exercise counseling 06/30/2024 Travel from Last 3 Months Immunizations Name Administration [...] Sign Reading Time Taken Comments Blood Pressure 127/81 07/28/2024 3:25 PM EDT Pulse 80 07/28/2024 3:25 PM EDT Temperature 36.6 ??C (97.8 ??F) 06/30/2024 3:05 [...] Info) Description 11/03/2024 3:30 PM EDT Telemedicine [facility] [address] [place] [address] OcasioReilly Grijalva MD [address] [place] [address] Health Maintenance Due Date Last Done Comments [...] Td or Tdap) 09/29/2025 09/30/2015 Lipid Panel 07/04/2029 07/04/2024, 06/21, 09/05/2021, Additional history exists Zoster Vaccines (1 of 2) 2043 RSV [...] Procedure Name Priority Date/Time Associated Diagnosis Comments TSH W/REFLEX TO FT4 Routine 07/04/2024 6 :55 AM EST Primary hypertension LIPID PANEL, STANDARD Routine 07/04/2024 6:55 AM EST Primary hypertension COMPREHENSIVE METABOLIC PANEL Routine 07/04/2024 6:55 AM EST Primary hypertension IRON AND TOTAL IRON BINDING CAPACITY Routine 07/04/2024 6:55 AM EST Primary hypertension CBC WITH AUTO DIFFERENTIAL Routine 07/04/2024 6:55 AM EST Primary hypertension DNA (DS) ANTIBODY Routine 07/04/2024 6:5 5 AM EST Facial rash RHEUMATOID FACTOR Routine 07/04/2024 6:5 5 AM EST Facial rash CYCLIC CITRULLINATED PEPTIDE (CCP) AB (IGG) Routine 07/04/2024 6:55 AM EST Facial rash C-REACTIVE PROTEIN Routine 07/04/2024 6: 55 AM EST Facial rash SED RATE BY MODIFIED WESTERGREN Routine 07/04/2024 6:55 AM EST Facial rash LUPUS ANTICOAGULANT EVALUATION WITH REFLEX Routine 07/04/2024 6:55 AM EST Facial rash HEPATITIS C AB W/REFL TO HCV RNA, QN, PCR Routine 07/06/2022 9:05 AM EST Primary hypertension HIV 1 RNA, QN PCR W/RFL MAKENZIE (RTI,PI,INTEGRASE) Routine 07/06/2022 9:05 AM EST Primary hypertension THINPREP IMAGING SYSTEM PAP Routine 04/04/2022 11:24 AM EST from Last 3 Months or Most Recently Relevant to Health Maintenance Results * TSH W/Reflex to FT4 (07/04/2024 6:55 AM EST) TSH reflex Free T4 2.30 0.32 - 4.0 uIU/mL [facility] Blood Venous blood specimen / Unknown 07/04/2024 6:55 AM EST 07/04/2024 6:55 AM EST us Reilly Mccoy MD LAB BLOOD ORDERABL ES Final Result [facility] [address] [place] [phone] * (ABNORMAL) CBC auto differential (07/04/2024 6:55 AM EST) White Blood Count 6.3 4.8 - 10.8 X10*3/uL [facility] Red Blood Count 5.01 4.20 - 5.50 X10*6/uL [facility] Hemoglobin 12.8 12.0 - 16.0 g/dl [facility] Hematocrit 37.4 37.0 - 47.0 % [facility] Mean Corpuscular Volume 74.7(L) 80.0 - 98.0 fL [facility] Mean Corpuscular Hemoglobin 25.5(L) 27.0 - 33.0 pg [facility] Mean Corpuscular HGB Conc 34.2 31.0 - 35.0 g/dl [facility] Red Cell Distribution Width 14.1 11.0 - 16.0 % [facility] Platelet Count 290 160 - 400 X10*3/uL [facility] Mean Platelet Volume 9.9 9.4 - 12.3 fL [facility] Neutrophils Percent Auto 61.0 45 - 73 % [facility] Imm Gran Pct Auto 0.3 0.0 - 0.4 % [facility] Lymphocytes Percent Auto 29.7 20 - 40 % [facility] Monocytes Percent Auto 6.8 2 - 11 % [facility] Eosinophils Percent Auto 1.7 0 - 4 % [facility] Basophils Percent Auto 0.5 0 - 2 % [facility] NRBC Pct Auto 0.0 0.0 - 0.2 /100WBC [facility] Neutrophils Absolute Auto 3.9 2.0 - 8.3 x10*3/uL [facility] Imm Gran Abs Auto 0.02 0.00 - 0.03 X10*3/uL [facility] Lymphocytes Absolute Auto 1.9 1.2 - 4.9 X10*3/uL [facility] Monocytes Absolute Auto 0.4 0.1 - 1.2 X10*3/uL [facility] Eosinophils Absolute Auto 0.1 0.0 - 0.4 X10*3/uL [facility] Basophils Absolute Auto 0.0 0.0 - 0.2 X10*3/uL [facility] NRBC Abs Auto 0.000 0.0 - 0.012 X10*3/uL [facility] Blood Venous blood specimen / Unknown 07/04/2024 6:55 AM EST 07/04/2024 6:55 AM EST Reilly Mccoy MD LAB BLOOD ORDERABL ES Final Result Performing Organization Address [facility] Phone Number [facility] [address] [place] [phone] * Cyclic Citrullinated Peptide (CCP) Antibody (IgG) (07/04/2024 6:55 AM EST) Cyclic Citrullinated Peptide <16 UNITS [facility] Comment:Reference RangeNegat cady: <20Weak Positive: 20-39Moderate Positive: 40-59Strong Positive: >59THIS TEST WAS PERFORMED AT:[facility] [address] [id number] TRONCOSO MD Blood Venous blood specimen / Unknown 07/04/2024 6:55 AM EST 07/04/2024 6:55 AM EST Reilly Mccoy MD LAB BLOOD ORDERABL ES Final Result Performing Organization Address [facility] Phone Number [facility] [address] [place] [phone] * (ABNORMAL) Iron And Total Iron Binding Capacity (07/04/2024 6:55 AM EST) Iron 39 30 - 160 mcg/dL [facility] Total Iron Binding Capacity 298 228 - 428 mcg/dL [facility] Percent Iron Saturation 13(L) 15 - 50 % [facility] Unsaturated Iron Binding 259 ug/dL [facility] Blood Venous blood specimen / Unknown 07/04/2024 6:55 AM EST 07/04/2024 6:55 AM EST Reilly Mccoy MD LAB BLOOD ORDERABL ES Final Result Performing Organization Address [facility]/State/ZIP Co de Phone Number [facility] [address] [place] [phone] * DNA (ds) Antibody (07/04/2024 6:55 AM EST) Anti DNA DS Antibody <1 IU/mL [facility] Comment:IU/mL Interpretation < or = 4 Negative 5-9 Indeterminate > or = 10 PositiveTHIS TEST WAS PERFORMED AT:[facility] [address] [id number] TRONCOSO MD Blood Venous blood specimen / Unknown 07/04/2024 6:55 AM EST 07/04/2024 6:55 AM EST Reilly Mccoy MD LAB BLOOD ORDERABL ES Final Result Performing Organization Address City/State/[facility] Co de Phone Number [facility] [address] [place] [address] [phone] * Lupus Anticoagulant Evaluation with Reflex (07/04/2024 6:55 AM EST) Pathologist [facility] Lupus Interpretation see note [facility] Comment:A Lupus Anticoagulan t is not detected.Reference Range: Not DetectedFor additional information, please refer tohttp://education.sellpoints/faq/BRW05c2(This link is being provided for informational/educational purposes only.)This interpretation is based on the following testresults. PTT (LAC) Screen 33 <=40 sec [facility] DRVVT Screen 30 <=45 sec [facility] Comment:THIS TEST WAS PERFOR MED AT:[facility]/[id number] [place] [address]PYPBOFHACE SAAVEDRA MD,PHD dRVVT Confirmation [facility] dRVVT 1:1 Mix [facility] DRVVT 1:1 Mix Interpretation [facility] Hexagonal Phase Neutralization [facility] Thrombin Clotting Time [facility] Blood Venous blood specimen / Unknown 07/04/2024 6:55 AM EST 07/04/2024 6:55 AM EST Reilly Mccoy MD LAB BLOOD ORDERABL ES Final Result Performing Organization Address [facility]/ZIP Co de Phone Number [facility] [address] [place] [phone] * Sed Rate by Modified Tavoergren (07/04/2024 6:55 AM EST) Erythrocyte Sedimentation Rate 16 0 - 20 MM/HR [facility] Comment:Patients with polycy themia and many hemoglobin abnormalitiesmay have depressed sed rates whereas patients with anemiamay have elevated sed rates. Blood Venous blood specimen / Unknown 07/04/2024 6:55 AM EST 07/04/2024 6:55 AM EST Reilly Mccoy MD LAB BLOOD ORDERABL ES Final Result Performing Organization Address [facility] Co de Phone Number [facility] [address] [place] [phone] * Rheumatoid Factor (07/04/2024 6:55 AM EST) [facility] Rheumatoid Factor <13.0 <15.0 IU/mL [facility] Blood Venous blood specimen / Unknown 07/04/2024 6:55 AM EST 07/04/2024 6:55 AM EST Reilly Mccoy MD LAB BLOOD ORDERABL ES Final Result Performing Organization Address [facility] Co de Phone Number [facility] [address] [place] [phone] * (ABNORMAL) C-reactive Protein (07/04/2024 6:55 AM EST) Pathologist [facility] C Reactive Protein 1.15(H) < or = 0.50 mg/dL [facility] Blood Venous blood specimen / Unknown 07/04/2024 6:55 AM EST 07/04/2024 6:55 AM EST Reilly Mccoy MD LAB BLOOD ORDERABL ES Final Result Performing Organization Address [facility] Co de Phone Number [facility] [address] [place] [phone] * (ABNORMAL) Lipid Panel, Standard (07/04/2024 6:55 AM EST) Triglycerides 134 <150 mg/dL [facility] Comment:Desirable Triglyceri de: less than 150 mg/dLBorderline High Triglyceride 150-199 mg/dLHigh Triglyceride: 200-499 mg/dLVery High Triglyceride: greater than or equal to 5OO mg/dL Cholesterol 164 <200 mg/dL [facility] Comment:Desirable Cholestero l: less than 200 mg/dLBorderline High Cholesterol: 200-239 mg/dLHigh Cholesterol: greater than 239 mg/dL LDL Cholesterol Calculated 104(H) <100 mg/dL [facility] Comment:Desirable LDL: less than 100 mg/dLNear Optimal/Above Optimal LDL: 110- 129 mg/dLBorderline High LDL: 130-159 mg/dLHigh LDL: 160-189 mg/dLVery High LDL: greater than or equal to 190 mg/dL HDL Cholesterol 34(L) >40 mg/dL [facility] Comment:Desirable HDL: great er than 40 mg/dL Note: This HDL assay may give artificially low results in patients with liver disease. Blood Venous blood specimen / Unknown 07/04/2024 6:55 AM EST 07/04/2024 6:55 AM EST Reilly Mccoy MD LAB BLOOD ORDERABL ES Final Result Performing Organization Address [facility] Co de Phone Number [facility] [address] [place] [phone] * (ABNORMAL) Comprehensive Metabolic Panel (07/04/2024 6:55 AM EST) Sodium 136 135 - 145 mmol/L [facility] Potassium 3.7 3.3 - 5.1 mmol/L [facility] Chloride 100 96 - 108 mmol/L [facility] Carbon Dioxide 27 22 - 29 mmol/L [facility] Anion Gap 13 12 - 20 [facility] Urea Nitrogen (BUN) 10 9 - 16 mg/dL [facility] Creatinine, Serum 0.66 0.5 - 1.4 mg/dL [facility] Estimated Glomerular Filt Rate >60 [facility] Comment:Chronic Kidney Disea se: Estimated GFR < 60 mL/min/1.32w9Miqsdc Kidney Disease: Estimated GFR < 15 mL/min/1.73m2 Glucose 99 60 - 115 mg/dL [facility] Calcium 9.6 8.4 - 10.2 mg/dL [facility] Bilirubin, Total 1.2(H) 0.0 - 1.0 mg/dL [facility] Aspartate Amino Transferase 26 5 - 31 U/L [facility] Alanine Aminotransferase 28 0 - 31 U/L [facility] Total Protein 8.1(H) 6.5 - 8.0 g/dL [facility] Albumin Level 4.3 3.5 - 5.0 g/dL [facility] Alkaline Phosphatase 97 39 - 117 U/L [facility] Blood Venous blood specimen / Unknown 07/04/2024 6:55 AM EST 07/04/2024 6:55 AM EST us Reilly Mccoy MD LAB BLOOD ORDERABL ES Final Result [facility] [address] [place], [place] [phone] * HIV-1 RNA, Quantitative, Real-Time PCR with Reflex to Genotype (RTI, PI, Integrase) (07/06/2022 9:05 AM EST) Pathologist [facility] HIV 1 RNA, QN PCR NOT DETECTED copies/mL [facility]/Clarissa izaguirre [facility], HIV 1 RNA, QN PCR NOT DETECTED Log copies/mL [facility]/Clarissa izaguirre [facility], Comment: REFERENCE RANGE: NOT DETECTED copies/mL ?NOT DETECTED ??Log copies/mL This test was performed using Real-Time Polymerase Chain Reaction. Reportable range is 20 to 10,000,000 copies/mL (1.30-7.00 Log copies/mL). 07/06/2022 9:05 AM EST 07/06/2022 9:06 AM EST Narrative [facility] - 07/13/2022 8:24 PM EST FASTING:YES FASTING: YES Reilly Mccoy MD LAB BLOOD ORDERABL ES Final Result [facility] [address], [place] [address] [facility], [address] [place] [address] * Hepatitis C Antibody with Reflex to HCV, RNA, Quantitative, Real-Time PCR (07/06/2022 9:05 AM EST) Hepatitis C Antibody NON-REACT CADY NON-REACT CADY [facility] [place] [facility] Index 0.03 <1.00 [facility] Comment: HCV antibody was non-reactive. There is no laboratory evidence of HCV infection. In most cases, no further action is required. However, if recent HCV exposure is suspected, a test for HCV RNA (test code 51236) is suggested. For additional information please refer to http://education.sellpoints/faq/VEG61w9 (This link is being provided for informational/ educational purposes only.) Blood Venous blood specimen / Unknown 07/06/2022 9:05 AM EST 07/06/2022 9:06 AM EST Narrative [facility] - 07/13/2022 8:24 PM EST FASTING:YES FASTING: YES Reilly Mccoy MD LAB BLOOD ORDERABL ES Final Result [facility] [address] [facility] [place] [address] [facility] [address] [facility], ([address]) [place] [address] * THINPREP TIS PAP (04/04/2022 11:24 AM [...] been evaluated with computer assisted technology. [facility] Sanitation Officer : SEE COMMENT [facility] Comment: MSM, CT(ASCP) CT screening location: [address] ??[phone] Infection Shift in vaginal jono suggestive of [...] Most Recently Relevant to Health Maintenance Insurance [facility] Care Teams Truck Assembler Relationship Specialty Start Date End Date Reilly Taylor MD [address] [place] [phone] PCP - General Internal Medicine 10/14/19
--- OUTSIDE RECORDS SUMMARY | 2024-09-18 08:28 | XMS_ITS | Encounter Summary ---
Author Organization [employer] Address [address] [facility] 7 [place] [address] Care Team Providers Care Equipment Specialist Name Role Phone Reilly Taylor MD Primary Care Prov ider Reason for Visit * Reason Onset Date Comments Referral 08/21/2024 Encounter Details Date Type Department Care Team (Late st Contact Info) Description 08/21/[address] [facility] [address] [place] [address] Reilly Taylor MD [address] [place] [address] Referral Social History Tobacco Use Types Packs/Day Years [...] AM EDT documented as of this encounter Miscellaneous Notes * Telephone Encounter - Elton Hernández - 08/21/2024 3:27 PM EDT Tc from pt requesting a referral for hematology. Contact pt at [phone] documented in this encounter Plan of Treatment Upcoming Encounters Date Type Department Care Team (Late st Contact Info) Description 11/03/2024 3:30 PM EDT Telemedicine [facility] [address] [place] [address] Reilly Taylor MD [address] [place] [address] documented as of this encounter Visit Diagnoses Not on filedocumented in this encounter Additional Health Concerns Assessment Noted Time PHQ-9 Depression Total Score: 1 09/01/19 23 2:22 PM EDT documented as of this encounter Care Teams Equipment Specialist Relationship Specialty Start Date End Date Reilly Taylor MD [address] [place] [address] PCP - General Internal Medicine 10/14/19 documented as of this encounter
--- NOTE | 2024-09-18 13:13 | A.OFFVIS_ITS ---
Vital Signs 09/18/24 13:55 Height 5 ft 6 in Weight 260 lb BMI 42.0 BP 120/70 Intake Visit Reasons: Menorrhagia Intake Note: Last pap smear 2-3 years ago, normal history. Hx of ovarian cysts and cysts outside uterus. Sleeping with 1 ac and 2 fans, hot flashes for 2 years. Airline Radio Operator: Airline Radio Operator Present (Ning) Accompanied by: Self / Same As Patient Allergies No Known Allergies Allergy (Verified 09/18/24 13:20) Medication List - Last Reconciled 09/18/24 by Angeles Vera CNM cetirizine 10 mg PO DAILY hydrochlorothiazide 25 mg PO DAILY lisinopril 40 mg PO DAILY Is last menstrual period known: Yes Last menstrual period: 07/06/24 (Has only stopped one day, mostly heavy with blood clots. Some days spotting.) Post menopausal: No Patient : No HPI HPI Menorrhagia: Details: Patient is scheduled here for a visit to discuss heavy bleeding. Notes were not available to this provider before the visit. She tells me she has been bleeding since June. She has had a history of irregular bleeding for a while. She was told by her doctor that she has a little bit anemic and with a hemoglobin of 11 and so she was told to take iron every day but it was bothering her stomach so he said that she could take it every other day. She has been working on weight loss and has lost about 30 lb so far her sister had bariatric surgery and she herself has been trying to follow the diet that her sister used to lose weight before her surgery and that has been helping her she is taking a little break right now for some reason because the shake she was drinking was upsetting her stomach. Her brother is also working on weight loss and has started going to the gym. She has always had irregular menses. She has not sexually involved with now but she does have a partner but he lives in [place] and she is thinking that he is going to come visit in February she would like to some day have a baby she is on 2 medications for her blood pressure. She took control pills to help regulate her period before but they upset her stomach and she did not take them. 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 Some days spotting.) control method: none Total pregnancies: 0 Physical Exam Vital Signs: Last Vital Signs BP 120/70 09/18/24 13:55 BMI result Body Mass Index 42.0 Const Other: Obesity noted darkening of skin and neck areas consistent with acanthosis nigricans increased facial hair and body hair noted as well General: healthy appearing, comfortable, no acute distress, well developed and alert Nutritional Appearance: average body habitus Orientation/consciousness: patient oriented x3 Limitations: no limitations HEENT Head: Yes normocephalic Neck Neck: Yes normal visual inspection Chest Chest palpation & inspection: normal inspection of the chest Breast/axilla inspection: normal inspection of the breasts and normal inspection of the axillae Breast/axilla palpation: normal palpation of the breasts and normal palpation of the axillae Resp Effort & Inspection: normal respiratory effort GI Inspection: Yes normal to inspection, No Abdominal wall edema and No distended Palpation (GI): Soft to palpation and nontender Other: Patient has very heavy menses cervix nulliparous long close thick mobile nontender uterus difficult to feel secondary to adipose but mobile and nontender no abnormal discharge just heavy menses too heavy to do Pap today. Testing done for gonorrhea chlamydia trichomoniasis bacterial vaginosis and yeast. Good muscle tone. General: Yes bladder normal to palpation External Female Exam: normal external appearance and normal appearance of the urethra Speculum Exam - Vagina: normal appearance of the vagina, normal palpation and normal vaginal discharge Speculum Exam - Cervix: normal appearance of the cervix, normal palpation and nontender Bimanual exam- vagina & uterus: normal bimanual exam, normal palpation, uterine size normal, bladder normal to palpation, consistency normal, normal palpation, uterine mobility normal, uterine shape normal, No Cervical tenderness present, non-tender and no cervical motion tenderness Bimanual Exam- Adnexa, other: normal adnexae, no masses, normal and No adnexal tenderness Neuro General: patient oriented x3 Results Reviewed Results Reviewed: [address] [address] Ultrasound Report Signed Patient: Anne Nieves MR#: [id number] : 1995 Acct:[id number] Age/Sex: 27 / F ADM Date: 06/20/22 Loc: HO.US Attending Dr: Reilly Mccoy MD Ordering Physician: Reilyl Taylor MD Date of Service: 06/20/22 Procedure(s): US pelvic and transvaginal Accession Number(s): [id number] cc: Reilly Taylor MD~ EXAMINATION: US PELVIS COMPLETE CLINICAL INFORMATION: Excessive and frequent menstruation COMPARISON: Pelvic ultrasound 06/03/2018 TECHNIQUE: Transabdominal and transvaginal imaging was performed. FINDINGS: The uterus is of normal size and echogenicity measuring 8.6 x 4.9 x 5.7 cm. A regular homogeneous endometrium is identified measuring 0.6 cm. Nabothian cyst present in the cervix. Suspect a small 1.5 x 1.7 x 1.3 cm subserosal myoma in the fundus of the uterus. Both ovaries are of normal size and echogenicity. The right measures 3.1 x 1.6 x 3.2 cm for a volume of 8.3 mL. The left measures 3.4 x 1.7 x 2.6 cm for a volume of 7.9 mL. There is no pelvic free fluid. US/US pelvic and transvaginal IMPRESSION: Suspect a small 1.7 cm subserosal myoma in the fundus of the uterus. Dictated By: Sujata Webster MD Signed By: <Electronically signed by Sujata Webster MD in OV> 06/21/22 2106 DD/ 1453 lilia: Anne Nieves Age/Sex: 29/F : 1995 Unit#: [id number] Attend Dr: Reilly Taylor MD Re07/04/24 Status: DEP REF Location: [facility] Disch: SPEC : [id number] NATE: 07/04/24 STATUS: COMP REQ : [id number] RECD: 07/04/[address]: Reilly Taylor MD COMP: 07/04/24 ENTERED: 07/04/[address] [facility] [address]: ORDERED: CBC Auto Diff Test Result Flag Reference WBC 6.3 4.8-10.8 X10*3/uL RBC 5.01 4.20-5.50 X10*6/uL HGB 12.8 12.0-16.0 g/dl HCT 37.4 37.0-47.0 % MCV 74.7 L 80.0-98.0 fL MCH 25.5 L 27.0-33.0 pg MCHC 34.2 31.0-35.0 g/dl RDW 14.1 11.0-16.0 % PLT 290 160-400 X10*3/uL MPV 9.9 9.4-12.3 fL Neut Pct Auto 61.0 45-73 % ImGran Pct Auto 0.3 0.0-0.4 % Lymp Pct Auto 29.7 20-40 % [place] Pct Auto 6.8 2-11 % Eos Pct Auto 1.7 0-4 % Baso Pct Auto 0.5 0-2 % NRBC Pct Auto 0.0 0.0-0.2 /100WBC ANC Neut Abs # 3.9 2.0-8.3 x10*3/uL ImGran Abs Auto 0.02 0.00-0.03 X10*3/uL Lymph Abs Auto 1.9 1.2-4.9 X10*3/uL [place] Abs Auto 0.4 0.1-1.2 X10*3/uL Eos Abs Auto 0.1 0.0-0.4 X10*3/uL Baso Abs Auto 0.0 0.0-0.2 X10*3/uL NRBC Abs Auto 0.000 0.0-0.012 X10*3/uL And random glucose on same date as above equals 99 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 We will start with pelvic ultrasound. The patient has a referral to Hematology pending. Discussed the relationship between obesity and discordant elevated hormones contributing to an ovulation and menorrhagia such as she is experiencing discussed that this is abnormal and discussed the options that have been tried in the past (OCPs) as well as other methods that we might consider to help manage the bleeding reviewed that she believes she is not at risk for an unintended any time soon because her boyfriend that she met online is in [place] and she will not be seeing him him till February. She will need to return for Pap smear but the next visit will be after the ultrasound and I discussed that we may very well need to do what is called an endometrial biopsy to assess for abnormality in the lining of her uterus. Discussed possible ways to stop the bleeding now but as her hemoglobin is not very low we will assess with the ultrasound 1st and I discussed the possibility of using a Mirena IU S to help deal with the irregular bleeding. Pelvic ultrasound soon within a week or 2 Follow-up visit after with probable EMB and possible Mirena insertion Orders: Orders Bacterial Vaginosis Panel Today N92.1 - Excessive and frequent menstruation with irregular cycle US pelvic and transvaginal 1 Week E66.01 - Morbid (severe) obesity due to excess calories, I10 - Essential (primary) hypertension, L68.0 - Hirsutism, N92.1 - Excessive and frequent menstruation with irregular cycle CT NG by PCR Today N92.1 - Excessive and frequent menstruation with irregular cycle Coding Level of Care Code New Pt Level 4 (34653) Diagnoses Essential hypertension I10 Menometrorrhagia N92.1 Hirsutism L68.0 Obesity, morbid, BMI 40.0-49.9 E66.01
[2024-09-18 13:55] VITALS: BP 120/70; BMI 42.0
--- OUTSIDE RECORDS SUMMARY | 2024-09-18 15:24 | XMS_ITS | Clinical Summary ---
Author Organization [facility] Address [address] [place] [address] Care Team Providers Care Transmission Specialist Name Role Phone Reilly Ocasio MD Primary Care Provider [phone] Allergies No known active allergies Medications Medication [...] age to complete this topic Care Teams Transmission Specialist Relationship Specialty Start Date End Date Reilly Ocasio MD [address] [place] [phone] PCP - General Internal Medicine 07/27/21
== END 2024-09-18 14:40 | disposition home or self-care (01) ==
LOC: HO.HWS 12:55
PROVIDERS: PCP Internal Medicine; Visit Provider Advanced Practice Midwife
DX: I10 Essential (primary) hypertension (principal); N92.1 Excessive and frequent menstruation with irregular cycle; L68.0 Hirsutism; E66.01 Morbid (severe) obesity due to excess calories
CPT/HCPCS: 99204

== ENCOUNTER 2024-09-19 08:53 | Outpatient (REF) | payer OTHER, SELFPAY ==
--- NOTE | ~2024-09-19 | US_ITS ---
EXAMINATION: US PELVIS TRANSABDOMINAL AND TRANSVAGINAL HISTORY: N92.1 - Excessive and frequent menstruation with irregular cycle COMPARISON: Comparison is made with the prior examination dated 06/20/2022. TECHNIQUE: Transabdominal and endovaginal real-time 2D london-scale ultrasound was performed. FINDINGS: Uterus: The uterus is normal in size, measuring 7.8 x 4.5 x 4.9 cm. Myometrium has a normal echotexture. No fibroids are identified. Endometrium: The endometrial stripe measures 5 mm in thickness. There are nabothian cysts in the cervix. Right ovary: The right ovary measures 3.9 x 1.8 x 1.7 cm. The right ovary is normal in size and echotexture. There is a 1.4 x 2.3 x 2.0 cm septated cyst. Left ovary: The left ovary measures 3.2 x 2.4 x 2.2 cm. The left ovary is normal in size and echotexture. Pelvic fluid: none. US/US pelvic and transvaginal IMPRESSION: 1.4 x 2.3 x 2.0 cm septated right ovarian cyst. Otherwise unremarkable pelvic ultrasound. Electronically signed by: Pablito Toure MD 09/19/2024 11:22 AM EDT
--- OUTSIDE RECORDS SUMMARY | 2024-09-19 09:22 | XMS_ITS | Encounter Summary ---
Author Organization [employer] [facility] Address [address] [place] [phone] Care Team Providers Care Cash Room Clerk Name Role Phone Reilly Taylor MD Primary Care Prov ider Reason for Visit * Reason Onset Date Comments Med Refill 12/13/2022 Encounter Details Date Type Department Care Team (Late Contact Info) Description 12/13/2022 Refill [facility] MEDICINE [address] [place], [place] [phone] Reilly Taylor MD [address] [place], [place] [phone] Primary hypertension Social History Tobacco Use Types [...] Info) Description 11/03/2024 3:30 PM EDT Telemedicine [facility]EDS [address] [place], [place] [phone] Reilly Taylor MD [address] [place], [place] [phone] documented as of this encounter Visit Diagnoses Diagnosis Primary hypertension Unspecified essential hypertension documented in this encounter Additional Health Concerns Assessment Noted Time PHQ-9 Depression Total Score: 1 09/01/19 23 2:22 PM EDT documented as of this encounter Care Teams Cash Room Clerk Relationship Specialty Start Date End Date Reilly Taylor MD [address] [place] [address] PCP - General Internal Medicine 10/14/19 documented as of this encounter
--- OUTSIDE RECORDS SUMMARY | 2024-09-19 09:22 | XMS_ITS | Clinical Summary ---
Author Organization [employer] Address [address] [place] [address] 7t [place] [address] Care Team Providers Care Costumed Character Entertainer Name Role Phone Reilly Taylor MD Primary [...] (07/28/2024 4:04 PM EDT): Will refer to ob-roll tube setter, she is also complaining of episodes of hot flashes Allergy 07/23/2023 Assessment & Plan (07/23/2023 8:51 AM EST): Patient refers ever since being exposed to a new plastic material at her job she has been suffering from allergies, told to continue with zyrtec, will refer to pit slagman Iron deficiency 06/14/2022 Assessment & Plan (07/28/2024 [...] Plan (06/14/2022 2:37 PM EST): Controlled, saw staff pharmacist hospital who ordered a abd/pelvic ct scan to r/o renal artery stenosis, will order new labs and follow up in 3 months Encounters Date Type Department Care Team Description 09/18/2024 Orders Only GENERIC EXTERNAL DATA DEPARTMENT Provider, Generic External Data 09/18/2024 Telephone [facility] [address] [place] [address] Reilly Taylor MD billing statement 09/16/2024 Refill [facility] [address] [place] [address] Reilly Taylor MD 08/21/2024 Telephone [facility] [address] [place] [address] Reilly Taylor MD Referral 07/28/2024 3:15 PM EDT Telemedicine [facility] [address] [place] [address] Reilly Taylor MD Primary hypertension (Primary Dx); Iron deficiency; Menorrhagia with regular cycle 07/28/2024 Travel 07/25/2024 Telephone [facility] [address] [place], [place] [phone] Reilly Taylor MD chart prep 07/05/2024 Refill [facility] [address] [place] [address] Reilly Taylor MD 06/30/2024 3:15 PM EST Office Visit [facility] [address] [place] [address] Reilly Taylor MD Facial rash (Primary Dx); [...] [facility] [address] [place] [address] Reilly Taylor MD [address] [place] [address] Health Maintenance Due Date Last Done Comments [...] Procedure Name Priority Date/Time Associated Diagnosis Comments CHLAMYDIA/N. GONORRHOEAE RNA, TMA, UROGENITAL Routine 09/18/2024 12:55 PM EDT BACTERIAL VAGINOSIS PANEL Routine 09/18/2024 12:55 PM EDT TSH W/REFLEX TO FT4 Routine 07/04/2024 6 [...] Relevant to Health Maintenance Results * (ABNORMAL) Bacterial Vaginosis (09/18/2024 12:55 PM EDT) TRICHOMONAS VAGINALIS DETECTION BY PCR NOT DETECTED Not Detect [facility] BACTERIAL VAGINOSIS DETECTION BY PCR POSITIVE(A) Negative [facility] Comment:The BV organism targ ets of the Xpert Xpress MVP test can becommensal in women; Xpert Xpress MVP positive results forbacterial vaginosis should be considered in conjunction withother clinical and patient information to determine thedisease status. Organisms that are not detected by the XpertXpress MVP test have also been reported to be associatedwith BV and aerobic vaginitis.The Xpert Xpress MVP test performance has not been evaluatedin patients under the age of 14. EMILY GROUP DETECTION BY PCR NOT DETECTED Not Detect [facility] Emily glab krusei PCR NOT DETECTED Not Detect [facility] 09/18/2024 12:5 5 PM EDT 09/18/2024 3:19 PM EDT us Generic External Data Provider LAB MICROBIOLOGY - GENERAL ORDERABLES Final Result [facility] [address] [place] [phone] * Chlamydia/N. Gonorrhoeae RNA, TMA, Urogenitial (09/18/2024 12:55 PM EDT) CT PCR NOT DETECTED Not Detect. [facility] Comment:A not detected test result does not exclude the possibilityof infection because test results can be affected byimproper specimen collection, concurrent antibiotic therapy,or the number of organisms in the specimen which may bebelow the sensitivity of the test. As with many diagnostictests, results from the Xpert CT/NG assay should beinterpreted in conjunction with other laboratory andclinical data available to the clinician.Xpert CT/NG performance has not been evaluated in patientsless than 14 years of age. The assay should not be used forthe evaluationof suspected sexual abuse or for other medico-legalindications. Additional testing is recommended in anycircumstance when false positive or false negative resultscould lead to adverse medical, social or psychologicalconsequences. NG PCR NOT DETECTED Not Detect. [facility] Comment:A not detected test result does not exclude the possibilityof infection because test results can be affected byimproper specimen collection, concurrent antibiotic therapy,or the number of organisms in the specimen which may bebelow the sensitivity of the test. As with many diagnostictests, results from the Xpert CT/NG assay should beinterpreted in conjunction with other laboratory andclinical data available to the clinician.Xpert CT/NG performance has not been evaluated in patientsless than 14 years of age. The assay should not be used forthe evaluationof suspected sexual abuse or for other medico-legalindications. Additional testing is recommended in anycircumstance when false positive or false negative resultscould lead to adverse medical, social or psychologicalconsequences. 09/18/2024 12:5 5 PM EDT 09/18/2024 3:19 PM EDT Narrative [facility] - 09/18/2024 6:28 PM EDT Vaginal us Generic External Data Provider LAB MICROBIOLOGY - GENERAL ORDERABLES Final Result Performing Organization Address City/[facility]/ZIP Co de Phone Number [facility] [address] [place] [phone] * TSH W/Reflex to FT4 (07/04/2024 6:55 AM EST) Pathologist [facility] [place] TSH reflex Free T4 2.30 0.32 - 4.0 uIU/mL [facility] Blood Venous blood specimen / Unknown 07/04/2024 6:55 AM EST 07/04/2024 6:55 AM EST us Reilly Mccoy MD LAB BLOOD ORDERABL ES Final Result Performing Organization Address [facility]/ZIP Co de Phone Number [facility] [address] [place] [phone] * (ABNORMAL) CBC auto differential (07/04/2024 6:55 AM EST) White Blood Count 6.3 4.8 - 10.8 X10*3/uL [facility] Red Blood Count 5.01 4.20 - 5.50 X10*6/uL [facility] Hemoglobin 12.8 12.0 - 16.0 g/dl [facility] Hematocrit 37.4 37.0 - 47.0 % [facility] Mean Corpuscular Volume 74.7(L) 80.0 - 98.0 fL [facility] Mean Corpuscular Hemoglobin 25.5(L) 27.0 - 33.0 pg [facility] Mean Corpuscular HGB Conc 34.2 31.0 - 35.0 g/dl [facility] Red Cell Distribution Width 14.1 11.0 - 16.0 % [facility] Platelet Count 290 160 - 400 X10*3/uL [facility] Mean Platelet Volume 9.9 9.4 - 12.3 fL [facility] Neutrophils Percent Auto 61.0 45 - 73 % [facility] Imm Gran Pct Auto 0.3 0.0 - 0.4 % [facility] Lymphocytes Percent Auto 29.7 20 - 40 % [facility] Monocytes Percent Auto 6.8 2 - 11 % [facility] Eosinophils Percent Auto 1.7 0 - 4 % [facility] Basophils Percent Auto 0.5 0 - 2 % [facility] NRBC Pct Auto 0.0 0.0 - 0.2 /100WBC [facility] Neutrophils Absolute Auto 3.9 2.0 - 8.3 x10*3/uL [facility] Imm Gran Abs Auto 0.02 0.00 - 0.03 X10*3/uL [facility] Lymphocytes Absolute Auto 1.9 1.2 - 4.9 X10*3/uL [facility] Monocytes Absolute Auto 0.4 0.1 - 1.2 X10*3/uL [facility] Eosinophils Absolute Auto 0.1 0.0 - 0.4 X10*3/uL [facility] Basophils Absolute Auto 0.0 0.0 - 0.2 X10*3/uL [facility] NRBC Abs Auto 0.000 0.0 - 0.012 X10*3/uL [facility] Blood Venous blood specimen / Unknown 07/04/2024 6:55 AM EST 07/04/2024 6:55 AM EST Reilly Mccoy MD LAB BLOOD ORDERABL ES Final Result Performing Organization Address [facility] de Phone Number [facility] [address] [place] [phone] * Cyclic Citrullinated Peptide (CCP) Antibody (IgG) (07/04/2024 6:55 AM EST) Cyclic Citrullinated Peptide <16 UNITS [facility] Comment:Reference RangeNegat cady: <20Weak Positive: 20-39Moderate Positive: 40-59Strong Positive: >59THIS TEST WAS PERFORMED AT:[employer] [place] [phone] TRONCOSO MD Blood Venous blood specimen / Unknown 07/04/2024 6:55 AM EST 07/04/2024 6:55 AM EST Reilly Mccoy MD LAB BLOOD ORDERABL ES Final Result Performing Organization Address [facility] de Phone Number [facility] [address] [place] [phone] * (ABNORMAL) Iron And Total Iron Binding Capacity (07/04/2024 6:55 AM EST) Iron 39 30 - 160 mcg/dL [facility] Total Iron Binding Capacity 298 228 - 428 mcg/dL [facility] Percent Iron Saturation 13(L) 15 - 50 % [facility] Unsaturated Iron Binding 259 ug/dL [facility] Blood Venous blood specimen / Unknown 07/04/2024 6:55 AM EST 07/04/2024 6:55 AM EST Reilly Mccoy MD LAB BLOOD ORDERABL ES Final Result Performing Organization Address [facility] Co de Phone Number [facility] [address] [place] [address] [phone] * DNA (ds) Antibody (07/04/2024 6:55 AM EST) Anti DNA DS Antibody <1 IU/mL [facility] Comment:IU/mL Interpretation < or = 4 Negative 5-9 Indeterminate > or = 10 PositiveTHIS TEST WAS PERFORMED AT:[employer] [address] [phone] TRONCOSO MD Blood Venous blood specimen / Unknown 07/04/2024 6:55 AM EST 07/04/2024 6:55 AM EST Reilly Mccoy MD LAB BLOOD ORDERABL ES Final Result Performing Organization Address [facility] de Phone Number [facility] [address] [place] [address] [phone] * Lupus Anticoagulant Evaluation with Reflex (07/04/2024 6:55 AM EST) Pathologist [facility] [place] Lupus Interpretation see note [facility] Comment:A Lupus Anticoagulan t is not detected.Reference Range: Not DetectedFor additional information, please refer tohttp://education.[employer]/faq/NEB75d7(This link is being provided for informational/educational purposes only.)This interpretation is based on the following testresults. PTT (LAC) Screen 33 <=40 sec [facility] DRVVT Screen 30 <=45 sec [facility] Comment:THIS TEST WAS PERFOR MED AT:[employer]/[facility] [place] [address]XOTEXLTACE SAAVEDRA MD,PHD dRVVT Confirmation TNP [facility] dRVVT 1:1 Mix TNP [facility] DRVVT 1:1 Mix Interpretation [facility] Hexagonal Phase Neutralization [facility] Thrombin Clotting Time [facility] Blood Venous blood specimen / Unknown 07/04/2024 6:55 AM EST 07/04/2024 6:55 AM EST Reilly Mccoy MD LAB BLOOD ORDERABL ES Final Result Performing Organization Address [facility]/ZIP Co de Phone Number [facility] [address] [place] [phone] * Sed Rate by Modified Westergren (07/04/2024 6:55 AM EST) Erythrocyte Sedimentation Rate 16 0 - 20 MM/HR [facility] Comment:Patients with polycy themia and many hemoglobin abnormalitiesmay have depressed sed rates whereas patients with anemiamay have elevated sed rates. Blood Venous blood specimen / Unknown 07/04/2024 6:55 AM EST 07/04/2024 6:55 AM EST Reilly Mccoy MD LAB BLOOD ORDERABL ES Final Result Performing Organization Address [facility] Co de Phone Number [facility] [address] [place] [phone] * Rheumatoid Factor (07/04/2024 6:55 AM EST) Rheumatoid Factor <13.0 <15.0 IU/mL [facility] Blood Venous blood specimen / Unknown 07/04/2024 6:55 AM EST 07/04/2024 6:55 AM EST Reilly Mccoy MD LAB BLOOD ORDERABL ES Final Result Performing Organization Address [facility] Co de Phone Number [facility] [address] [place] [phone] * (ABNORMAL) C-reactive Protein (07/04/2024 6:55 AM EST) C Reactive Protein 1.15(H) < or = 0.50 mg/dL [facility] Blood Venous blood specimen / Unknown 07/04/2024 6:55 AM EST 07/04/2024 6:55 AM EST Reilly Mccoy MD LAB BLOOD ORDERABL ES Final Result Performing Organization Address [facility] Co de Phone Number [facility] [address] [place] [address] [phone] * (ABNORMAL) Lipid Panel, Standard (07/04/2024 6:55 AM EST) Triglycerides 134 <150 mg/dL [facility] Comment:Desirable Triglyceri de: less than 150 mg/dLBorderline High Triglyceride 150-199 mg/dLHigh Triglyceride: 200-499 mg/dLVery High Triglyceride: greater than or equal to 5OO mg/dL Cholesterol 164 <200 mg/dL [facility] Comment:Desirable Cholestero l: less than 200 mg/dLBorderline High Cholesterol: 200-239 mg/dLHigh Cholesterol: greater than 239 mg/dL LDL Cholesterol Calculated 104(H) <100 mg/dL [facility] Comment:Desirable LDL: less than 100 mg/dLNear Optimal/Above Optimal LDL: 110- 129 mg/dLBorderline High LDL: 130-159 mg/dLHigh LDL: 160-189 mg/dLVery High LDL: greater than or equal to 190 mg/dL HDL Cholesterol 34(L) >40 mg/dL [facility] Comment:Desirable HDL: great er than 40 mg/dL Note: This HDL assay may give artificially low results in patients with liver disease. Blood Venous blood specimen / Unknown 07/04/2024 6:55 AM EST 07/04/2024 6:55 AM EST Reilly Mccoy MD LAB BLOOD ORDERABL ES Final Result Performing Organization Address [facility]/ZIP Co de Phone Number [facility] [address] [place] [phone] * (ABNORMAL) Comprehensive Metabolic Panel (07/04/2024 6:55 AM EST) Sodium 136 135 - 145 mmol/L [facility] Potassium 3.7 3.3 - 5.1 mmol/L [facility] Chloride 100 96 - 108 mmol/L [facility] Carbon Dioxide 27 22 - 29 mmol/L [facility] Anion Gap 13 12 - 20 [facility] Urea Nitrogen (BUN) 10 9 - 16 mg/dL [facility] Creatinine, Serum 0.66 0.5 - 1.4 mg/dL [facility] Estimated Glomerular Filt Rate >60 [facility] Comment:Chronic Kidney Disea se: Estimated GFR < 60 mL/min/1.16d4Tgwdlm Kidney Disease: Estimated GFR < 15 mL/min/1.73m2 Glucose 99 60 - 115 mg/dL [facility] Calcium 9.6 8.4 - 10.2 mg/dL [facility] Bilirubin, Total 1.2(H) 0.0 - 1.0 mg/dL [facility] Aspartate Amino Transferase 26 5 - 31 U/L [facility] Alanine Aminotransferase 28 0 - 31 U/L [facility] Total Protein 8.1(H) 6.5 - 8.0 g/dL [facility] Albumin Level 4.3 3.5 - 5.0 g/dL [facility] Alkaline Phosphatase 97 39 - 117 U/L [facility] Blood Venous blood specimen / Unknown 07/04/2024 6:55 AM EST 07/04/2024 6:55 AM EST us Reilly Mccoy MD LAB BLOOD ORDERABL ES Final Result [facility] [address] [place] [phone] * HIV-1 RNA, Quantitative, Real-Time PCR with Reflex to Genotype (RTI, PI, Integrase) (07/06/2022 9:05 AM EST) HIV 1 RNA, QN PCR NOT DETECTED copies/mL [facility]/Clarissa izaguirre [facility], HIV 1 RNA, QN PCR NOT DETECTED Log copies/mL [facility]/N dmitriy [facility], Comment: REFERENCE RANGE: NOT DETECTED copies/mL ?NOT DETECTED ??Log copies/mL This test was performed using Real-Time Polymerase Chain Reaction. Reportable range is 20 to 10,000,000 copies/mL (1.30-7.00 Log copies/mL). 07/06/2022 9:05 AM EST 07/06/2022 9:06 AM EST Narrative [facility] - 07/13/2022 8:24 PM EST FASTING:YES FASTING: YES Reilly Mccoy MD LAB BLOOD ORDERABL ES Final Result [address], [place] [phone] [facility]/M[facility], [address] [place] [phone] * Hepatitis C Antibody with Reflex to HCV, RNA, Quantitative, Real-Time PCR (07/06/2022 9:05 AM EST) Hepatitis C Antibody NON-REACT CADY NON-REACT CADY [facility] Index 0.03 <1.00 [facility] Comment: HCV antibody was non-reactive. There is no laboratory evidence of HCV infection. In most cases, no further action is required. However, if recent HCV exposure is suspected, a test for HCV RNA (test code 59903) is suggested. For additional information please refer to http://education.[employer]/faq/QFS31s4 (This link is being provided for informational/ educational purposes only.) Blood Venous blood specimen / Unknown 07/06/2022 9:05 AM EST 07/06/2022 9:06 AM EST Narrative [facility] - 07/13/2022 8:24 PM EST FASTING:YES FASTING: YES Reilly Mccoy MD LAB BLOOD ORDERABL ES Final Result [facility] [address] [facility] [place] [address] [facility] [address] [facility], ([address]) [place] [address] * THINPREP TIS PAP (04/04/2022 11:24 AM [...] with computer assisted technology. [facility] Telecommunications Equipment Installer : SEE COMMENT [facility] Comment: MSM, CT(ASCP) CT screening location: [address] ??[phone] Infection Shift in vaginal jono suggestive of [...] Most Recently Relevant to Health Maintenance Insurance [facility] Address: [address] [phone] Care Teams Costumed Character Entertainer Relationship Specialty Start Date End Date Reilly Taylor MD [address] [place] [phone] PCP - General Internal Medicine 10/14/19
--- OUTSIDE RECORDS SUMMARY | 2024-09-19 09:22 | XMS_ITS | Clinical Summary ---
Author Organization [facility] Address [address] [place] [address] Care Team Providers Care Curriculum Designer Name Role Phone Reilly Ocasio MD Primary Care Provider [phone] Allergies No known active allergies Medications Medication [...] age to complete this topic Care Teams Curriculum Designer Relationship Specialty Start Date End Date Reilly Ocasio MD [address] [place] [phone] PCP - General Internal Medicine 07/27/21
--- OUTSIDE RECORDS SUMMARY | 2024-09-19 09:22 | XMS_ITS | Encounter Summary ---
Author Organization [employer] Address [address] [facility] 7t [place] [address] Care Team Providers Care Motor Inspection Mechanic Name Role Phone Reilly Taylor MD Primary Care Prov ider Encounter Details Date Type Department Care Team (Late st Contact Info) Description 09/18/2024 Orders Only GENERIC EXTERNAL DATA DEPARTMENT Provider, Generic External Data Social History Tobacco Use Types Packs/Day Years [...] Info) Description 11/03/2024 3:30 PM EDT Telemedicine [facility] [address] [place] [address] Ocasio Reilly Mccoy MD [address] [place] [address] documented as of this encounter Procedures Procedure Name Priority Date/Time Associated Diagnosis Comments BACTERIAL VAGINOSIS PANEL Routine 09/18/2024 12:55 PM EDT CHLAMYDIA/N. GONORRHOEAE RNA, TMA, UROGENITAL Routine 09/18/2024 12:55 PM EDT documented in this encounter Results * Chlamydia/N. Gonorrhoeae RNA, TMA, Urogenitial (09/18/2024 12:55 PM EDT) CT PCR NOT DETECTED Not Detect. [facility] Comment:A not detected test result [...] psychologicalconsequences. NG PCR NOT DETECTED Not Detect. [facility] Comment:A not detected test result [...] PM EDT 09/18/2024 3:19 PM EDT Narrative [facility] - 09/18/2024 6:28 PM EDT Vaginal us Generic External Data Provider LAB MICROBIOLOGY - GENERAL ORDERABLES Final Result [facility] [address] [place] [phone] * (ABNORMAL) Bacterial Vaginosis (09/18/2024 12:55 PM EDT) TRICHOMONAS VAGINALIS DETECTION BY PCR NOT DETECTED Not Detect [facility] BACTERIAL VAGINOSIS DETECTION BY PCR POSITIVE(A) Negative [facility] Comment:The BV organism targ ets [...] DETECTION BY PCR NOT DETECTED Not Detect [facility] Emily glab krusei PCR NOT DETECTED Not Detect [facility] 09/18/2024 12:5 5 PM EDT 09/18/2024 3:19 PM EDT us Generic External Data Provider LAB MICROBIOLOGY - GENERAL ORDERABLES Final Result [facility] [address] [place] [phone] documented in this encounter Visit Diagnoses Not on filedocumented in this encounter Additional Health Concerns Assessment Noted Time PHQ-9 Depression Total Score: 1 09/01/19 23 2:22 PM EDT documented as of this encounter Care Teams Motor Inspection Mechanic Relationship Specialty Start Date End Date Reilly Taylor MD [address] [place] [phone] PCP - General Internal Medicine 10/14/19 documented as of this encounter
--- OUTSIDE RECORDS SUMMARY | 2024-09-19 09:22 | XMS_ITS | Encounter Summary ---
Author Organization [employer] Address [address] [facility] 7 [place] [address] Care Team Providers Care Research Development Manager Name Role Phone Reilly Taylor MD Primary Care Prov ider Reason for Visit * Reason Onset Date Comments billing statement 09/18/2024 Encounter Details Date Type Department Care Team ([facility] Contact Info) Description 09/18/2024 Telephone [facility] [address] [place], [place] [phone] Reilly Taylor MD [address] [place] [address] billing statement Social History Tobacco Use Types [...] [facility] [address] [place] [address] Reilly Taylor MD [address] [place] [address] documented as of this encounter Visit Diagnoses Not on filedocumented in this encounter Additional Health Concerns Assessment Noted Time PHQ-9 Depression Total Score: 1 09/01/19 23 2:22 PM EDT documented as of this encounter Care Teams Research Development Manager Relationship Specialty Start Date End Date Reilly Taylor MD [address] [place] [address] PCP - General Internal Medicine 10/14/19 documented as of this encounter
--- OUTSIDE RECORDS SUMMARY | 2024-09-19 09:22 | XMS_ITS | Encounter Summary ---
Author Organization [employer] Address [address] [place] [address] Care Team Providers Care Credentialing Coordinator Name Role Phone Reilly Taylor MD Primary Care Prov ider Reason for Visit * Reason Onset Date Comments Med Refill 09/16/2024 Encounter Details Date Type Department Care Team ([facility] st Contact Info) Description 09/16/2024 Refill [facility] [address] [place] [address] Reilly Taylor MD [address] [place] [address] Social History Tobacco Use Types Packs/Day Years [...] Description 11/03/2024 3:30 PM EDT Telemedicine [facility] [address] [place] [address] Reilly Taylor MD [address] [place] [address] documented as of this encounter Visit Diagnoses Not on filedocumented in this encounter Additional Health Concerns Assessment Noted Time PHQ-9 Depression Total Score: 1 09/01/19 23 2:22 PM EDT documented as of this encounter Care Teams Credentialing Coordinator Relationship Specialty Start Date End Date Reilly Taylor MD [address] [place] [address] PCP - General Internal Medicine 10/14/19 documented as of this encounter
--- OUTSIDE RECORDS SUMMARY | 2024-09-19 09:22 | XMS_ITS | Encounter Summary ---
Author Organization [employer] Address [address] [facility] 7 [place] [address] Care Team Providers Care Hostage Negotiator Name Role Phone Reilly Taylor MD Primary Care Prov ider Reason for Visit * Reason Onset Date Comments Med Refill 08/29/2023 Encounter Details Date Type Department Care Team ([facility] st Contact Info) Description 08/29/2023 Refill [facility] [address] [place] [address] Reilly Taylor MD [address] [place] [address] Social History Tobacco Use Types Packs/Day Years [...] Info) Description 11/03/2024 3:30 PM EDT Telemedicine [facility] [address] [place] [address] Reilly Taylor MD [address] [place] [address] documented as of this encounter Visit Diagnoses Not on filedocumented in this encounter Additional Health Concerns Assessment Noted Time PHQ-9 Depression Total Score: 1 09/01/19 23 2:22 PM EDT documented as of this encounter Care Teams Hostage Negotiator Relationship Specialty Start Date End Date Reilly Taylor MD [address] [place] [address] PCP - General Internal Medicine 10/14/19 documented as of this encounter
--- OUTSIDE RECORDS SUMMARY | 2024-09-19 09:22 | XMS_ITS | Encounter Summary ---
Author Organization [employer] Address [address] [facility] 7 [place] [address] Care Team Providers Care Director Of User Experience Name Role Phone Reilly Taylor MD Primary Care Prov ider Reason for Visit * Reason Onset Date Comments Referral 08/21/2024 Encounter Details Date Type Department Care Team (Late st Contact Info) Description 08/21/2024 Telephone [facility] [address] [place] [address] Reilly Taylor MD [address] [place] [address] Referral Social History Tobacco Use Types Packs/Day [...] a referral for hematology. Contact pt at [phone] documented in this encounter Plan of Treatment Upcoming Encounters Date Type Department Care Team (Late st Contact Info) Description 11/03/2024 3:30 PM EDT Telemedicine [facility] [address] [place] [address] Reilly Taylor MD [address] [place] [address] documented as of this encounter Visit Diagnoses Not on filedocumented in this encounter Additional Health Concerns Assessment Noted Time PHQ-9 Depression Total Score: 1 09/01/19 23 2:22 PM EDT documented as of this encounter Care Teams Director Of User Experience Relationship Specialty Start Date End Date Reilly Taylor MD [address] [place] [address] PCP - General Internal Medicine 10/14/19 documented as of this encounter
== END 2024-09-19 08:54 | disposition home or self-care (01) ==
LOC: HO.HMGCX 08:53
PROVIDERS: PCP Internal Medicine; Visit Provider Advanced Practice Midwife
DX: N92.1 Excessive and frequent menstruation with irregular cycle (principal); L68.0 Hirsutism; E66.01 Morbid (severe) obesity due to excess calories; I10 Essential (primary) hypertension
CPT/HCPCS: 76830; 76856

== ENCOUNTER → 2024-09-19 08:57 | Outpatient (BNV) | payer OTHER, SELFPAY | PROVIDERS: PCP Internal Medicine; Visit Provider Radiology Diagnostic Radiology | DX: N83.201 Unspecified ovarian cyst, right side (principal) | CPT/HCPCS: 76830; 76856 ==

== ENCOUNTER 2024-10-02 10:26 | Outpatient (REF) | payer OTHER, SELFPAY ==
--- OUTSIDE RECORDS SUMMARY | 2024-10-02 13:42 | XMS_ITS | Encounter Summary ---
Author Organization [employer] Address 75 [facility] 7 [place] [address] Care Team Providers Care Tool Machine Shop Supervisor Name Role Phone Reilly Taylor MD Primary Care Prov ider Reason for Visit * Reason Onset Date Comments Med Refill 08/29/2023 Encounter Details Date Type Department Care Team ([facility] st Contact Info) Description 08/29/2023 Refill [facility] [address] [place] [address] Reilly Taylor MD [address] [place] [address] Social History Tobacco Use Types Packs/Day Years [...] Description 11/03/2024 3:30 PM EDT Telemedicine [facility] [address] [place] [address] Reilly Taylor MD [address] [place] [address] documented as of this encounter Visit Diagnoses Not on filedocumented in this encounter Additional Health Concerns Assessment Noted Time PHQ-9 Depression Total Score: 1 09/01/19 23 2:22 PM EDT documented as of this encounter Care Teams Tool Machine Shop Supervisor Relationship Specialty Start Date End Date Reilly Taylor MD [address] [place] [address] PCP - General Internal Medicine 10/14/19 documented as of this encounter
--- OUTSIDE RECORDS SUMMARY | 2024-10-02 13:42 | XMS_ITS | Encounter Summary ---
Author Organization [employer] Address [address] [facility] 7t [place] [address] Care Team Providers Care Syrup Maker Name Role Phone Reilly Taylor MD Primary Care Prov ider Reason for Visit * Reason Onset Date Comments Referral 08/21/2024 Encounter Details Date Type Department Care Team (Late st Contact Info) Description 08/21/2024 Telephone [facility] [address] [place] [address] Reilly Taylor MD [address] [place] [address] Referral Social History Tobacco Use Types Packs/Day [...] a referral for hematology. Contact pt at [phone] documented in this encounter Plan of Treatment Upcoming Encounters Date Type Department Care Team (Late st Contact Info) Description 11/03/2024 3:30 PM EDT Telemedicine [facility] [address] [place] [address] Reilly Taylor MD [address] [place] [address] documented as of this encounter Visit Diagnoses Not on filedocumented in this encounter Additional Health Concerns Assessment Noted Time PHQ-9 Depression Total Score: 1 09/01/19 23 2:22 PM EDT documented as of this encounter Care Teams Syrup Maker Relationship Specialty Start Date End Date Reilly Taylor MD [address] [place] [address] PCP - General Internal Medicine 10/14/19 documented as of this encounter
--- OUTSIDE RECORDS SUMMARY | 2024-10-02 13:42 | XMS_ITS | Clinical Summary ---
Author Organization [employer] Address 75 [facility] 7t [place] [address] Care Team Providers Care Luncheonette Operator Name Role Phone Reilly Taylor MD [...] (07/28/2024 4:04 PM EDT): Will refer to ob-obgyn specialist, she is also complaining of episodes of hot flashes Allergy 07/23/2023 Assessment & Plan (07/23/2023 8:51 AM EST): Patient refers ever since being exposed to a new plastic material at her job she has been suffering from allergies, told to continue with zyrtec, will refer to maintenance dispatcher Iron deficiency 06/14/2022 Assessment & Plan (07/28/2024 [...] Plan (06/14/2022 2:37 PM EST): Controlled, saw insurance adviser who ordered a abd/pelvic ct scan to r/o renal artery stenosis, will order new labs and follow up in 3 months Encounters Date Type Department Care Team Description 09/18/2024 Orders Only GENERIC EXTERNAL DATA DEPARTMENT Provider, Generic External Data 09/18/2024 Telephone [facility] MED & PEDS [address] [place] [address] Reilly Taylor MD billing statement 09/16/2024 Refill [facility] CH[facility] MED & PEDS [address] [place] [address] Reilly Taylor MD 08/21/2024 Telephone [facility] MEDICINE [address] [place] [address] Reilly Taylor MD Referral 07/28/2024 3:15 PM EDT Telemedicine [facility] MED & PEDS [address] [place] [address] Reilly Taylor MD Primary hypertension (Primary Dx); Iron deficiency; Menorrhagia with regular cycle 07/28/2024 Travel 07/25/2024 Telephone [facility] [address] [place] [address] Reilly Taylor MD chart prep 07/05/2024 Refill [facility] [address] [place] [address] Reilly Taylor MD from Last 3 Months [...] Info) Description 11/03/2024 3:30 PM EDT Telemedicine [facility] MED & PEDS [address] [place] [address] Reilly Taylor MD [address] [place] [address] Health Maintenance Due Date Last Done Comments [...] EDT ? [facility] ?[address] ? [place] [address] ? Ultrasound Report ? Signed ? Patient: Anne Nieves ?MR#: ?? [id number] ? : 1995 ?Acct:[id number] ? Age/Sex: 29 / F ?ADM Date: 09/19/24 ? Loc: HO.HMGCX ? Attending Dr: Angeles LIUM ? Ordering Physician: Angeles Vera CNM ?? Date of Service: 09/19/24 ?? Procedure(s): US pelvic and transvaginal ?? Accession Number(s): [id number] ? cc: Reilly Taylor MD; Angeles Vera [...] DD/ 0930 ? TD/TT: 09/19/24 1000 ? Manager Floral: ? Procedure Note Taylor Cody - 09/19/2024 [facility] Adult Primary Care [facility] [place] [address] Ultrasound Report Signed Patient: Anne Nieves#: [id number] : 1995Acct:[id number] Age/Sex: Date: 09/19/24 Loc: HO.HMGCX Attending Dr: Angeles Vera CNM Ordering Physician: Angeles Vera CNM Date of Service: 09/19/24 Procedure(s): US pelvic and transvaginal Accession Number(s): [id number] cc: Reilly Taylor MD; Angeles Vera CNM [...] 09/19/24 1122 DD/ 0930 TD/TT: 09/19/24 1000 Manager Floral: us [facility] External Provider IMG US PROCEDURES Final Result * (ABNORMAL) Bacterial Vaginosis (09/18/2024 12:55 PM EDT) TRICHOMONAS VAGINALIS DETECTION BY PCR NOT DETECTED Not Detect [facility] BACTERIAL VAGINOSIS DETECTION BY PCR POSITIVE(A) Negative [facility] Comment:The BV organism targ ets of [...] DETECTION BY PCR NOT DETECTED Not Detect [facility] Emily glab krusei PCR NOT DETECTED Not Detect [facility] 09/18/2024 12:5 5 PM EDT 09/18/2024 3:19 PM EDT us Generic External Data Provider LAB MICROBIOLOGY - GENERAL ORDERABLES Final Result [facility] [address] [place] [phone] [phone] * Chlamydia/N. Gonorrhoeae RNA, TMA, Urogenitial (09/18/2024 12:55 PM EDT) CT PCR NOT DETECTED Not Detect. [facility] Comment:A not detected test result does [...] psychologicalconsequences. NG PCR NOT DETECTED Not Detect. [facility] Comment:A not detected test result does [...] PM EDT 09/18/2024 3:19 PM EDT Narrative [facility] - 09/18/2024 6:28 PM EDT Vaginal us Generic External Data Provider LAB MICROBIOLOGY - GENERAL ORDERABLES Final Result [facility] [address] [place] [phone] * (ABNORMAL) Lipid Panel, Standard (07/04/2024 6:55 AM EST) Triglycerides 134 <150 mg/dL [facility] Comment:Desirable Triglyceri de: less than 150 mg/dLBorderline High Triglyceride 150-199 mg/dLHigh Triglyceride: 200-499 mg/dLVery High Triglyceride: greater than or equal to 5OO mg/dL Cholesterol 164 <200 mg/dL [facility] Comment:Desirable Cholestero l: less than 200 mg/dLBorderline High Cholesterol: 200-239 mg/dLHigh Cholesterol: greater than 239 mg/dL LDL Cholesterol Calculated 104(H) <100 mg/dL [facility] Comment:Desirable LDL: less than 100 mg/dLNear Optimal/Above Optimal LDL: 110- 129 mg/dLBorderline High LDL: 130-159 mg/dLHigh LDL: 160-189 mg/dLVery High LDL: greater than or equal to 190 mg/dL HDL Cholesterol 34(L) >40 mg/dL [facility] Comment:Desirable HDL: great er than 40 mg/dL Note: This HDL assay may give artificially low results in patients with liver disease. Blood Venous blood specimen / Unknown 07/04/2024 6:55 AM EST 07/04/2024 6:55 AM EST us Reilly Ocasio Mccoy MD LAB BLOOD ORDERABL ES Final Result [facility] [address] [place] [address] [phone] * HIV-1 RNA, Quantitative, Real-Time PCR with Reflex to Genotype (RTI, PI, Integrase) (07/06/2022 9:05 AM EST) HIV 1 RNA, QN PCR NOT DETECTED copies/mL [facility], HIV 1 RNA, QN PCR NOT DETECTED Log copies/mL [facility], Comment: REFERENCE RANGE: NOT DETECTED copies/mL ?NOT DETECTED ??Log copies/mL This test was performed using Real-Time Polymerase Chain Reaction. Reportable range is 20 to 10,000,000 copies/mL (1.30-7.00 Log copies/mL). 07/06/2022 9:05 AM EST 07/06/2022 9:06 AM EST Narrative [facility] - 07/13/2022 8:24 PM EST FASTING:YES FASTING: YES Reilly Mccoy MD LAB BLOOD ORDERABL ES Final Result Performing Organization Address City/[facility]/ZIP Co de Phone Number [facility] [address], [place] [address] [facility], [address] [place] [address] * Hepatitis C Antibody with Reflex to HCV, RNA, Quantitative, Real-Time PCR (07/06/2022 9:05 AM EST) Hepatitis C Antibody NON-REACT CADY NON-REACT CADY [facility] [place] [facility] Index 0.03 <1.00 [facility] [place] [facility] Comment: HCV antibody was non-reactive. There is no laboratory evidence of HCV infection. In most cases, no further action is required. However, if recent HCV exposure is suspected, a test for HCV RNA (test code 81668) is suggested. For additional information please refer to http://education.TextPayMe.PAYMEY/faq/HTB74t0 (This link is being provided for informational/ educational purposes only.) Blood Venous blood specimen / Unknown 07/06/2022 9:05 AM EST 07/06/2022 9:06 AM EST Narrative [facility] - 07/13/2022 8:24 PM EST FASTING:YES FASTING: YES Reilly Mccoy MD LAB BLOOD ORDERABL ES Final Result [facility] [address] [place] [address], [place] [address] [facility] [address] [place] [address], (Nl2) [place] [address] * THINPREP TIS PAP (04/04/2022 11:24 AM [...] with computer assisted technology. CONVERTED LEGACY LABS Juke Box Mechanic : SEE COMMENT CONVERT[facility]GACY LABS Comment: MSM, CT(ASCP) CT screening location: [address] ??[phone] Infection Shift in vaginal jono suggestive of [...] Most Recently Relevant to Health Maintenance Insurance [facility] [employer] Care Teams Luncheonette Operator Relationship Specialty Start Date End Date Reilly Taylor MD [address] [place] [phone] PCP - General Internal Medicine 10/14/19
--- OUTSIDE RECORDS SUMMARY | 2024-10-02 13:42 | XMS_ITS | Clinical Summary ---
Author Organization [facility] Address [address] [place] [address] Care Team Providers Care Dividend Deposit Entry Clerk Name Role Phone Reilly Ocasio MD Primary Care Provider [phone] Allergies No known active allergies Medications Medication [...] age to complete this topic Care Teams Dividend Deposit Entry Clerk Relationship Specialty Start Date End Date Reilly Ocasio MD [address] [place] [phone] PCP - General Internal Medicine 07/27/21
--- OUTSIDE RECORDS SUMMARY | 2024-10-02 13:42 | XMS_ITS | Encounter Summary ---
Author Organization [employer] Address [address] [facility] [address] [address] Care Team Providers Care Hydraulic Plumber Helper Name Role Phone Reilly Taylor MD Primary Care Prov ider Reason for Visit * Reason Onset Date Comments Med Refill 12/13/2022 Encounter Details Date Type Department Care Team (Late st Contact Info) Description 12/13/2022 Refill [facility] MEDICINE [address] [place], [place] [phone] Reilly Taylor MD [address] [place], [place] [phone] Primary hypertension Social History Tobacco Use Types [...] Info) Description 11/03/2024 3:30 PM EDT Telemedicine [facility] CHC MED & PEDS [address] [place], [place] [phone] Reilly Taylor MD [address] [place], [place] [phone] documented as of this encounter Visit Diagnoses Diagnosis Primary hypertension Unspecified essential hypertension documented in this encounter Additional Health Concerns Assessment Noted Time PHQ-9 Depression Total Score: 1 09/01/19 23 2:22 PM EDT documented as of this encounter Care Teams Hydraulic Plumber Helper Relationship Specialty Start Date End Date Reilly Taylor MD [address] [place] [phone] PCP - General Internal Medicine 10/14/19 documented as of this encounter
[2024-10-08 15:20] LABS: HPV Genotype 16 Negative (Negative); HPV Genotype 18 Negative (Negative); HPV High Risk Negative (Negative)
== END 2024-10-02 10:27 | disposition home or self-care (01) ==
LOC: HO.LNP 10:26
PROVIDERS: PCP Internal Medicine; Visit Provider Advanced Practice Midwife
DX: N92.1 Excessive and frequent menstruation with irregular cycle (principal); I10 Essential (primary) hypertension; E66.01 Morbid (severe) obesity due to excess calories; Z68.41 Body mass index [BMI] 40.0-44.9, adult
CPT/HCPCS: 58100; 87626; 88175; 88305; 99212

== ENCOUNTER 2024-10-02 10:26 | Outpatient (AMB) | payer OTHER, SELFPAY ==
--- NOTE | 2024-10-02 11:37 | MHC.OFFVIS ---
Vital Signs 10/02/24 11:38 Height 5 ft 6 in Weight 260 lb BMI 42.0 BP 122/72 Intake Visit Reasons: EMB/Ultrasound follow up Steam Shovel Operator: Steam Shovel Operator Present (Ning) Accompanied by: Self / Same As Patient Allergies No Known Allergies Allergy (Verified 10/02/24 11:38) Medication List - Last Reconciled 10/02/24 by Angeles Vera CNM cetirizine 10 mg PO DAILY hydrochlorothiazide 25 mg PO DAILY lisinopril 40 mg PO DAILY Post menopausal: No Patient : No HPI HPI EMB/Ultrasound follow up: Details: Patient is here at the [facility] office for a review of her pelvic ultrasound which she had done because if menorrhagia, and the planned EMB. Patient was seen about 2 weeks ago and a plan was made for her to have a pelvic ultrasound to evaluate her uterus and then return for review of same with endometrial biopsy I also discussed with her what we would possibly due to help ameliorate her menorrhagia and I also had the discussion with her about her weight affecting her hormonal status and this contributing to her irregular bleeding pattern. She has had this issue in the past and has had a pelvic ultrasound for in the past for her primary care provider it was a question of a small fibroid but it was not seen on this ultrasound. She is not currently sexually active but she has a boyfriend in [place] but expects to see him in February. She is on 2 medications for high blood pressure and she says she is trying to lose weight but has not had success so far she will be seeing her primary care provider in the next couple of months and we will be getting fasting blood work. She also was told she was anemic though the last blood count showed a hemoglobin of 12. 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 I explained the procedure and what the goal of the obtaining the sample is, and why we need need to do it today. Patient signed consent form, and appropriate testing was done beforehand. test is negative Patient was placed in recumbent position. Speculum was placed to visualize cervix the cervix was cleansed with Betadine. A tenaculum was gently placed to straighten the axis. The uterus was sounded to 8 cm. The endometrial biopsy Pipelle was inserted gently, and withdrawn to obtain sampling of the endometrial tissue for 3 passes. The tenaculum was removed and the cervix was swabbed gently as any bleeding subsided. the patient sat up after removal of the speculum. She is to return for discussion of the results and review of any other testing. [id number] Biopsy Results Reviewed Results Reviewed: atient: Anne Nieves MR#: [id number] : 1995 Acct:[id number] Age/Sex: 29 / F ADM Date: 09/19/24 Loc: HO.HMGCX Attending Dr: Angeles Vera CNM Ordering Physician: Angeles Vera CNM Date of Service: 09/19/24 Procedure(s): US pelvic and transvaginal Accession Number(s): [id number] cc: Reilly Taylor MD; Angeles Vera CNM~ EXAMINATION: US PELVIS TRANSABDOMINAL AND TRANSVAGINAL HISTORY: N92.1 - Excessive and frequent menstruation with irregular cycle COMPARISON: Comparison is made with the prior examination dated 06/20/2022. TECHNIQUE: Transabdominal and endovaginal real-time 2D london-scale ultrasound was performed. FINDINGS: Uterus: The uterus is normal in size, measuring 7.8 x 4.5 x 4.9 cm. Myometrium has a normal echotexture. No fibroids are identified. Endometrium: The endometrial stripe measures 5 mm in thickness. There are nabothian cysts in the cervix. Right ovary: The right ovary measures 3.9 x 1.8 x 1.7 cm. The right ovary is normal in size and echotexture. There is a 1.4 x 2.3 x 2.0 cm septated cyst. Left ovary: The left ovary measures 3.2 x 2.4 x 2.2 cm. The left ovary is normal in size and echotexture. Pelvic fluid: none. US/US pelvic and transvaginal IMPRESSION: 1.4 x 2.3 x 2.0 cm septated right ovarian cyst. Otherwise unremarkable pelvic ultrasound. Electronically signed by: Pablito Toure MD 09/19/2024 11:22 AM EDT RP Dictated By: Pablito Toure MD Signed By: <Electronically signed by Pablito Toure MD in OV> 09/19/24 1122 DD/ 0930 TD/TT: 09/19/24 1000 Student Specialist: Assessment & Plan Assessment & Plan (1) Essential hypertension: Code(s): I10 - Essential (primary) hypertension Category: Medical (2) Menometrorrhagia: Code(s): N92.1 - Excessive and frequent menstruation with irregular cycle Category: Medical (3) Obesity, morbid, BMI 40.0-49.9: Code(s): E66.01 - Morbid (severe) obesity due to excess calories Category: Medical Plan Please see the procedure section in the HPI section for Valencia discussion of the HPI her history of the menorrhagia what she has tried in the past for it and her history of hypertension obesity and anemia which seems improved at this time. I reviewed the ultrasound with her which just so a small ovarian septated cyst. Endometrial biopsy was explained after doing a negative test, testing for STIs was all negative at the last visit. Patient is not currently sexually active anyway. She said she understood and we proceeded to the endometrial biopsy I was able to obtain specimen with 3 passes of the endometrial sampler with no difficulty arrange to have her seen next week to review the results and I also had a discussion about the I recommend placement of a Mirena IUD to help manage her menorrhagia as she has been dealing with this for very long time and it is proving problematic in her health and as well she was not able to tolerate for various reasons including medical reasons such as her hypertension, the oral contraceptives that have been tried in the past. I reviewed the a Mirena is a method of control but I highly recommend that she consider this plan to help prevent future complications to her health. RTC 1 week for review of EMB results and placement of a Mirena Orders: Orders AMB Endometrial Biopsy Today E66.01 - Morbid (severe) obesity due to excess calories, I10 - Essential (primary) hypertension, N92.1 - Excessive and frequent menstruation with irregular cycle Coding Level of Care Code Est Pt Level 3 (84254) Diagnoses Essential hypertension I10 Menometrorrhagia N92.1 Obesity, morbid, BMI 40.0-49.9 E66.01 CPT Codes Endometrial Biopsy - CPT: 77381-[facility] Biopsy ([id number])
[2024-10-02 11:38] VITALS: BP 122/72; BMI 42.0
--- OUTSIDE RECORDS SUMMARY | 2024-10-02 11:38 | XMS_ITS | Encounter Summary ---
Author Organization [employer] Address [address] [facility] [address], [place] [address] Care Team Providers Care Health Teacher Name Role Phone Reilly Taylor MD Primary Care Prov ider Reason for Visit * Reason Onset Date Comments Med Refill 12/13/2022 Encounter Details Date Type Department Care Team (Late st Contact Info) Description 12/13/2022 Refill [facility] [address] [place], [place] [phone] Reilly Taylor MD [address] [place], [place] [phone] Primary hypertension Social History Tobacco Use Types [...] Info) Description 11/03/2024 3:30 PM EDT Telemedicine [facility] [address] [place], [place] [phone] Reilly Taylor MD [address] [place], [place] [phone] documented as of this encounter Visit Diagnoses Diagnosis Primary hypertension Unspecified essential hypertension documented in this encounter Additional Health Concerns Assessment Noted Time PHQ-9 Depression Total Score: 1 09/01/19 23 2:22 PM EDT documented as of this encounter Care Teams Health Teacher Relationship Specialty Start Date End Date Reilly Taylor MD [address] [place] [phone] PCP - General Internal Medicine 10/14/19 documented as of this encounter
--- OUTSIDE RECORDS SUMMARY | 2024-10-02 11:38 | XMS_ITS | Clinical Summary ---
Author Organization [facility] Address [address] [place] [address] Care Team Providers Care Mold Cutting Machine Operator Name Role Phone Reilly Ocasio MD Primary Care Provider [phone] Allergies No known active allergies Medications Medication [...] age to complete this topic Care Teams Mold Cutting Machine Operator Relationship Specialty Start Date End Date Reilly Ocasio MD [address] [place] [phone] PCP - General Internal Medicine 07/27/21
--- OUTSIDE RECORDS SUMMARY | 2024-10-02 11:38 | XMS_ITS | Clinical Summary ---
Author Organization [employer] Address 75 [facility] 7t [place] [address] Care Team Providers Care Supervisor Major Appliance Assembly Name Role Phone Reilly Taylor MD Primary [...] (07/28/2024 4:04 PM EDT): Will refer to ob-home builder, she is also complaining of episodes of hot flashes Allergy 07/23/2023 Assessment & Plan (07/23/2023 8:51 AM EST): Patient refers ever since being exposed to a new plastic material at her job she has been suffering from allergies, told to continue with zyrtec, will refer to customer advisor specialist Iron deficiency 06/14/2022 Assessment & Plan (07/28/2024 [...] Plan (06/14/2022 2:37 PM EST): Controlled, saw manager security who ordered a abd/pelvic ct scan to r/o renal artery stenosis, will order new labs and follow up in 3 months Encounters Date Type Department Care Team Description 09/18/2024 Orders Only GENERIC EXTERNAL DATA DEPARTMENT Provider, Generic External Data 09/18/2024 Telephone [facility] [address] [place] [address] Reilly Taylor MD billing statement 09/16/2024 Refill [facility] [address] [place] [address] Reilly Taylor MD 08/21/2024 Telephone [facility] [address] [place] [address] Reilly Taylor MD Referral 07/28/2024 3:15 PM EDT Telemedicine [facility] [address] [place] [address] Reilly Taylor MD Primary hypertension (Primary Dx); Iron deficiency; Menorrhagia with regular cycle 07/28/2024 Travel 07/25/2024 Telephone [facility] [address] [place] [address] Reilly Taylor MD chart prep 07/05/2024 Refill [facility] [address] [place] [address] Reilly Taylor MD from Last 3 Months Immunizations Immunization Administration Dates Next Due HPV 9-Valent 04/29/2019,03/26/2019 [...] Info) Description 11/03/2024 3:30 PM EDT Telemedicine [facility] [address] [place] [address] Reilly aTylor MD [address] [place] [address] Health Maintenance Due Date Last Done Comments Alcohol/Substance Use Screening 2005 Family Planning (PISQ) 2008 HPV Vaccines (3 - 3-dose series) 09/24/2019 04/29/2019, 03/26/2019 Depression Screening 09/01/2023 08/31/2022, 09/01/19 SDOH Screening 09/01/2023 08/31/2022 COVID-19 Vaccine ( [...] patient's age to complete this topic Meningococcal B Vaccine Aged Out No l onger eligible based on patient's age to complete [...] Procedure Name Priority Date/Time Associated Diagnosis Comments US PELVIS TRANSVAGINAL Routine 09/19/2024 9:30 AM EDT CHLAMYDIA/N. GONORRHOEAE RNA, TMA, UROGENITAL Routine 09/18/2024 12:55 PM EDT BACTERIAL VAGINOSIS PANEL Routine 09/18/2024 12:55 PM EDT LIPID PANEL, STANDARD Routine 07/04/2024 6:55 AM EST Primary hypertension HEPATITIS C AB W/REFL TO HCV RNA, QN, PCR Routine 07/06/2022 9:05 AM EST Primary hypertension HIV 1 RNA, QN PCR W/RFL MAKENZIE (RTI,PI,INTEGRASE) Routine 07/06/2022 9:05 AM EST Primary hypertension THINPREP IMAGING SYSTEM PAP Routine 04/04/2022 11:24 AM EST from Last 3 Months or Most Recently Relevant to Health Maintenance Results * US Pelvis Transvaginal (09/19/2024 9:30 AM EDT) Anatomical Region Laterality Modality Pelvis Ultrasound 09/19/2024 9:30 AM EDT Narrative 09/19/2024 11:25 AM EDT ? [facility] ?[address] ? [place] [address] ? Ultrasound Report ? Signed ? Patient: Anne Nieves ?MR#: ?? [id number] ? : 1995 ?Acct:[id number] ? Age/Sex: 29 / F ?ADM Date: 09/19/24 ? Loc: HO.HMGCX ? Attending Dr: Angeles LIUM ? Ordering Physician: Angeles Vera CNM ?? Date of Service: 09/19/24 ?? Procedure(s): US pelvic and transvaginal ?? Accession Number(s): [id number] ? cc: Reilly Taylor MD; Angeles Vera CNM ? EXAMINATION: ??US PELVIS TRANSABDOMINAL AND TRANSVAGINAL ? HISTORY: N92.1 - Excessive and frequent menstruation with irregular ?? cycle ? COMPARISON: Comparison is made with the prior examination dated ?? 06/20/2022. ? TECHNIQUE: ? Transabdominal and endovaginal real-time 2D london-scale ultrasound was ?? performed. ? FINDINGS: ? Uterus: ??The uterus is normal in size, measuring 7.8 x 4.5 x 4.9 cm. ? Myometrium has a normal echotexture. ??No fibroids are identified. ? Endometrium: ??The endometrial stripe measures 5 mm in thickness. There ?? are nabothian cysts in the cervix. ? Right ovary: ??The right ovary measures 3.9 x 1.8 x 1.7 cm. ??The right ?? ovary is normal in size and echotexture. There is a 1.4 x 2.3 x 2.0 cm ?? septated cyst. ? Left ovary: ?? The left ovary measures 3.2 x 2.4 x 2.2 cm. ??The left ?? ovary is normal in size and echotexture. ? Pelvic fluid: none. ? US/US pelvic and transvaginal ?? IMPRESSION: ?? 1.4 x 2.3 x 2.0 cm septated right ovarian cyst. Otherwise unremarkable ?? pelvic ultrasound. ? Electronically signed by: ??Pablito Toure MD ??09/19/2024 11:22 AM EDT ? Dictated By: ?Pablito Toure MD ? Signed By: ?<Electronically signed by Pablito Toure MD in OV> ?09/19/24 1122 ? DD/ 0930 ? TD/TT: 09/19/24 1000 ? Button Breaker: ? Procedure Note Taylor Cody - 09/19/2024 [facility] [place] [address] Ultrasound Report Signed Patient: Anne Nieves#: [id number] : 1995Acct:[id number] Age/Sex: Date: 09/19/24 Loc: HO.HMGCX Attending Dr: Angeles Vera CNM Ordering Physician: Angeles Vera CNM Date of Service: 09/19/24 Procedure(s): US pelvic and transvaginal Accession Number(s): [id number] cc: Reilly Taylor MD; Angeles Vera CNM EXAMINATION: US PELVIS TRANSABDOMINAL AND TRANSVAGINAL HISTORY: N92.1 - Excessive and frequent menstruation with irregular cycle COMPARISON: Comparison is made with the prior examination dated 06/20/2022. TECHNIQUE: Transabdominal and endovaginal real-time 2D london-scale ultrasound was performed. FINDINGS: Uterus: The uterus is normal in size, measuring 7.8 x 4.5 x 4.9 cm. Myometrium has a normal echotexture. No fibroids are identified. Endometrium: The endometrial stripe measures 5 mm in thickness. There are nabothian cysts in the cervix. Right ovary: The right ovary measures 3.9 x 1.8 x 1.7 cm. The right ovary is normal in size and echotexture. There is a 1.4 x 2.3 x 2.0 cm septated cyst. Left ovary: The left ovary measures 3.2 x 2.4 x 2.2 cm. The left ovary is normal in size and echotexture. Pelvic fluid: none. US/US pelvic and transvaginal IMPRESSION: 1.4 x 2.3 x 2.0 cm septated right ovarian cyst. Otherwise unremarkable pelvic ultrasound. Electronically signed by: Pablito Toure MD 09/19/2024 11:22 AM EDT Dictated By: Pablito Toure MD Signed By: <Electronically signed by Pablito Toure MD in OV> 09/19/24 1122 DD/ 0930 TD/TT: 09/19/24 1000 Button Breaker: us [facility] External Provider IMG US PROCEDURES Final Result * (ABNORMAL) Bacterial Vaginosis (09/18/2024 12:55 PM EDT) TRICHOMONAS VAGINALIS DETECTION BY PCR NOT DETECTED Not Detect [facility] BACTERIAL VAGINOSIS DETECTION BY PCR POSITIVE(A) Negative [facility] Comment:The BV organism targ ets [...] DETECTION BY PCR NOT DETECTED Not Detect [facility] Emily glab krusei PCR NOT DETECTED Not Detect [facility] 09/18/2024 12:5 5 PM EDT 09/18/2024 3:19 PM EDT us Generic External Data Provider LAB MICROBIOLOGY - GENERAL ORDERABLES Final Result [facility] [address] [place] [address] [phone] * Chlamydia/N. Gonorrhoeae RNA, TMA, Urogenitial (09/18/2024 12:55 PM EDT) CT PCR NOT DETECTED Not Detect. [facility] Comment:A not detected test result [...] psychologicalconsequences. NG PCR NOT DETECTED Not Detect. [facility] Comment:A not detected test result [...] PM EDT 09/18/2024 3:19 PM EDT Narrative [facility] - 09/18/2024 6:28 PM EDT Vaginal us Generic External Data Provider LAB MICROBIOLOGY - GENERAL ORDERABLES Final Result [facility] [address] [place] [phone] * (ABNORMAL) Lipid Panel, Standard (07/04/2024 6:55 AM EST) Triglycerides 134 <150 mg/dL [facility] Comment:Desirable Triglyceri de: less than 150 mg/dLBorderline High Triglyceride 150-199 mg/dLHigh Triglyceride: 200-499 mg/dLVery High Triglyceride: greater than or equal to 5OO mg/dL Cholesterol 164 <200 mg/dL [facility] Comment:Desirable Cholestero l: less than 200 mg/dLBorderline High Cholesterol: 200-239 mg/dLHigh Cholesterol: greater than 239 mg/dL LDL Cholesterol Calculated 104(H) <100 mg/dL [facility] Comment:Desirable LDL: less than 100 mg/dLNear Optimal/Above Optimal LDL: 110- 129 mg/dLBorderline High LDL: 130-159 mg/dLHigh LDL: 160-189 mg/dLVery High LDL: greater than or equal to 190 mg/dL HDL Cholesterol 34(L) >40 mg/dL [facility] Comment:Desirable HDL: great er than 40 mg/dL Note: This HDL assay may give artificially low results in patients with liver disease. Blood Venous blood specimen / Unknown 07/04/2024 6:55 AM EST 07/04/2024 6:55 AM EST us Reilly Ocasio Mccoy MD LAB BLOOD ORDERABL ES Final Result [facility] [address] [place] [phone] [phone] * HIV-1 RNA, Quantitative, Real-Time PCR with Reflex to Genotype (RTI, PI, Integrase) (07/06/2022 9:05 AM EST) HIV 1 RNA, QN PCR NOT DETECTED copies/mL [facility], HIV 1 RNA, QN PCR NOT DETECTED Log copies/mL [facility], Comment: REFERENCE RANGE: NOT DETECTED copies/mL ?NOT DETECTED ??Log copies/mL This test was performed using Real-Time Polymerase Chain Reaction. Reportable range is 20 to 10,000,000 copies/mL (1.30-7.00 Log copies/mL). 07/06/2022 9:05 AM EST 07/06/2022 9:06 AM EST Narrative [facility] - 07/13/2022 8:24 PM EST FASTING:YES FASTING: YES Reilly Mccoy MD LAB BLOOD ORDERABL ES Final Result Performing Organization Address City/[facility]/ZIP Co de Phone Number [facility] [address], [place] [address] [facility], [address] [place] [address] * Hepatitis C Antibody with Reflex to HCV, RNA, Quantitative, Real-Time PCR (07/06/2022 9:05 AM EST) Hepatitis C Antibody NON-REACT CADY NON-REACT CADY [employer] [place] LPATHt Index 0.03 <1.00 [employer] [facility] [place] [employer] Comment: HCV antibody was non-reactive. There is no laboratory evidence of HCV infection. In most cases, no further action is required. However, if recent HCV exposure is suspected, a test for HCV RNA (test code 45829) is suggested. For additional information please refer to http://education.[employer]/faq/IIT26n1 (This link is being provided for informational/ educational purposes only.) Blood Venous blood specimen / Unknown 07/06/2022 9:05 AM EST 07/06/2022 9:06 AM EST Narrative [facility] - 07/13/2022 8:24 PM EST FASTING:YES FASTING: YES Reilly Mccoy MD LAB BLOOD ORDERABL ES Final Result [facility] [address] [place] [address], [place] [address] [employer] [facility] [address] [place] [address], (N[address]) [place] [address] * THINPREP TIS PAP (04/04/2022 11:24 AM [...] with computer assisted technology. [facility] House Designer : SEE COMMENT [facility] Comment: MSM, CT(ASCP) CT screening location: [address] ??[id number] Infection Shift in vaginal jono suggestive of [...] Most Recently Relevant to Health Maintenance Insurance [facility] Address: [address] [address] Care Teams Supervisor Major Appliance Assembly Relationship Specialty Start Date End Date Reilly Taylor MD [address] [place] [address] PCP - General Internal Medicine 10/14/19
--- OUTSIDE RECORDS SUMMARY | 2024-10-02 11:38 | XMS_ITS | Encounter Summary ---
Author Organization [employer] Address 75 [facility] 7 [place] [address] Care Team Providers Care Demand Equipment Repairer Name Role Phone Reilly Taylor MD Primary Care Prov ider Reason for Visit * Reason Onset Date Comments Med Refill 08/29/2023 Encounter Details Date Type Department Care Team ([facility] st Contact Info) Description 08/29/2023 Refill [facility] PED[facility] [address] [place] [address] Reilly Taylor MD [address] [place] [address] Social History Tobacco Use Types Packs/Day Years [...] 11/03/2024 3:30 PM EDT Telemedicine [facility] [address] [place] [address] Reilly Taylor MD [address] [place] [address] documented as of this encounter Visit Diagnoses Not on filedocumented in this encounter Additional Health Concerns Assessment Noted Time PHQ-9 Depression Total Score: 1 09/01/19 23 2:22 PM EDT documented as of this encounter Care Teams Demand Equipment Repairer Relationship Specialty Start Date End Date Reilly Taylor MD [address] [place] [address] PCP - General Internal Medicine 10/14/19 documented as of this encounter
--- OUTSIDE RECORDS SUMMARY | 2024-10-02 11:38 | XMS_ITS | Encounter Summary ---
Author Organization [employer] Address 75 [facility] 7[address] [place] [address] Care Team Providers Care Design Intern Name Role Phone Reilly Taylor MD Primary Care Prov ider Reason for Visit * Reason Onset Date Comments Referral 08/21/2024 Encounter Details Date Type Department Care Team (Late st Contact Info) Description 08/21/2024 Telephone [facility] [address] [place] [address] Reilly Taylor MD [address] [place] [address] Referral Social History Tobacco Use Types Packs/Day [...] a referral for hematology. Contact pt at [phone] documented in this encounter Plan of Treatment Upcoming Encounters Date Type Department Care Team (Late st Contact Info) Description 11/03/2024 3:30 PM EDT Telemedicine [facility] [address] [place] [address] Reilly Taylor MD [address] [place] [address] documented as of this encounter Visit Diagnoses Not on filedocumented in this encounter Additional Health Concerns Assessment Noted Time PHQ-9 Depression Total Score: 1 09/01/19 23 2:22 PM EDT documented as of this encounter Care Teams Design Intern Relationship Specialty Start Date End Date Reilly Taylor MD [address] [place] [address] PCP - General Internal Medicine 10/14/19 documented as of this encounter
== END 2024-10-02 13:18 | disposition home or self-care (01) ==
LOC: HO.HWSM 10:26
PROVIDERS: PCP Internal Medicine; Visit Provider Advanced Practice Midwife
DX: N92.1 Excessive and frequent menstruation with irregular cycle (principal); I10 Essential (primary) hypertension; E66.01 Morbid (severe) obesity due to excess calories; Z68.41 Body mass index [BMI] 40.0-44.9, adult
CPT/HCPCS: 58100; 99213

== ENCOUNTER 2024-10-03 14:29 | Outpatient (REF) | payer OTHER, SELFPAY ==
--- OUTSIDE RECORDS SUMMARY | 2024-10-03 14:31 | XMS_ITS | Encounter Summary ---
Author Organization [employer] Address [address] [facility] 7 [place] [address] Care Team Providers Care Sales Floor Associate Name Role Phone Reilly Taylor MD Primary Care Prov ider Reason for Visit * Reason Onset Date Comments Med Refill 08/29/2023 Encounter Details Date Type Department Care Team ([facility] st Contact Info) Description 08/29/[address] [facility] MED & PEDS [address] [place] [address] Reilly Taylor MD [address] [place] [address] Social History Tobacco Use Types Packs/Day Years [...] [facility] [address] [place] [address] Reilly Taylor MD [address] [place] [address] documented as of this encounter Visit Diagnoses Not on filedocumented in this encounter Additional Health Concerns Assessment Noted Time PHQ-9 Depression Total Score: 1 09/01/19 23 2:22 PM EDT documented as of this encounter Care Teams Sales Floor Associate Relationship Specialty Start Date End Date Reilly Taylor MD [address] [place] [address] PCP - General Internal Medicine 10/14/19 documented as of this encounter
--- OUTSIDE RECORDS SUMMARY | 2024-10-03 14:31 | XMS_ITS | Clinical Summary ---
Author Organization [facility] Address [address] [place] [address] Care Team Providers Care Bar And Filler Assembler Name Role Phone Reilly Ocasio MD Primary Care Provider [phone] Allergies No known active allergies Medications Medication [...] age to complete this topic Care Teams Bar And Filler Assembler Relationship Specialty Start Date End Date Reilly Ocasio MD [address] [place] [phone] PCP - General Internal Medicine 07/27/21
--- OUTSIDE RECORDS SUMMARY | 2024-10-03 14:31 | XMS_ITS | Encounter Summary ---
Author Organization [employer] Address [address] [facility] 7t [place] [address] Care Team Providers Care Managed Services Consultant Name Role Phone Reilly Taylor MD Primary Care Prov ider Reason for Visit * Reason Onset Date Comments Referral 08/21/2024 Encounter Details Date Type Department Care Team (Late st Contact Info) Description 08/21/2024 Telephone [facility] MEDICINE [address] [place] [address] Reilly Taylor MD [address] [place] [address] Referral Social History Tobacco Use Types Packs/Day [...] a referral for hematology. Contact pt at [phone] documented in this encounter Plan of Treatment Upcoming Encounters Date Type Department Care Team (Late st Contact Info) Description 11/03/2024 3:30 PM EDT Telemedicine [facility] MED [facility] PEDS [address] [place] [address] Reilly Taylor MD [address] [place] [address] documented as of this encounter Visit Diagnoses Not on filedocumented in this encounter Additional Health Concerns Assessment Noted Time PHQ-9 Depression Total Score: 1 09/01/19 23 2:22 PM EDT documented as of this encounter Care Teams Managed Services Consultant Relationship Specialty Start Date End Date Reilly Taylor MD [address] [place] [address] PCP - General Internal Medicine 10/14/19 documented as of this encounter
--- OUTSIDE RECORDS SUMMARY | 2024-10-03 14:31 | XMS_ITS | Clinical Summary ---
Author Organization [employer] Address [address] [facility] 7t [place] [address] Care Team Providers Care Poultry Inspector Name Role Phone Reilly Taylor MD Primary [...] (07/28/2024 4:04 PM EDT): Will refer to ob-industrial paramedic, she is also complaining of episodes of hot flashes Allergy 07/23/2023 Assessment & Plan (07/23/2023 8:51 AM EST): Patient refers ever since being exposed to a new plastic material at her job she has been suffering from allergies, told to continue with zyrtec, will refer to cash management coordinator Iron deficiency 06/14/2022 Assessment & Plan (07/28/2024 [...] Plan (06/14/2022 2:37 PM EST): Controlled, saw sample carrier who ordered a abd/pelvic ct scan to r/o renal artery stenosis, will order new labs and follow up in 3 months Encounters Date Type Department Care Team Description 09/18/2024 Orders Only GENERIC EXTERNAL DATA DEPARTMENT Provider, Generic External Data 09/18/2024 Telephone [facility] MED & PEDS [address] [place] [address] Reilly Taylor MD billing statement 09/16/2024 Refill [facility] CHC MED & PEDS [address] [place] [address] Reilly Taylor MD 08/21/2024 Telephone [facility] MEDICINE [address] [place] [address] Reilly Taylor MD Referral 07/28/2024 3:15 PM EDT Telemedicine [facility] CHC MED & PEDS [address] [place] [address] Reilly Taylor MD Primary hypertension (Primary Dx); Iron deficiency; Menorrhagia with regular cycle 07/28/2024 Travel 07/25/2024 Telephone [facility] MED & PEDS [address] [place], [place] [phone] Reilly Taylor MD chart prep from Last 3 Months Immunizations Immunization Administration [...] Info) Description 11/03/2024 3:30 PM EDT Telemedicine [facility] CHC MED & PEDS [address] [place] [address] OcasioReilly Grijalva MD [address] [place] [address] Health Maintenance Due Date Last Done Comments [...] EDT ? [facility] ?[address] ? [place] [address] ? Ultrasound Report ? Signed ? Patient: Anne Nieves ?MR#: ?? [id number] ? : 1995 ?Acct:[id number] ? Age/Sex: 29 / F ?ADM Date: 09/19/24 ? Loc: HO.HMGCX ? Attending Dr: Angeles Vera CNM ? Ordering Physician: Angeles Vera CNM ?? Date of Service: 09/19/24 ?? Procedure(s): US pelvic and transvaginal ?? Accession Number(s): [id number] ? cc: Reilly Taylor MD; Angeles Vera [...] DD/ 0930 ? TD/TT: 09/19/24 1000 ? Dot Net Architect: ? Procedure Note Donamayainterpreter, Image - 09/19/2024 [facility] Adult Primary Care [address] [place] [address] Dr. Starr, [place]PH [address] Ultrasound Report Signed Patient: Connor Nieves#: [id number] : 1995Acct:[id number] Age/Sex: 29 FADM Date: 09/19/24 Loc: HO.HMGCX Attending Dr: Angeles Vear CNM Ordering Physician: Angeles Vera CNM Date of Service: 09/19/24 Procedure(s): US pelvic and transvaginal Accession Number(s): [id number] cc: Reilly Taylor MD; Angeles Vera CNM [...] 09/19/24 1122 DD/ 0930 TD/TT: 09/19/24 1000 Dot Net Architect: us [facility] External Provider IMG US PROCEDURES Final Result * (ABNORMAL) Bacterial Vaginosis (09/18/2024 12:55 PM EDT) TRICHOMONAS VAGINALIS DETECTION BY PCR NOT DETECTED Not Detect [facility] BACTERIAL VAGINOSIS DETECTION BY PCR POSITIVE(A) Negative [facility] Comment:The BV organism targ ets [...] DETECTION BY PCR NOT DETECTED Not Detect [facility] Emily glab krusei PCR NOT DETECTED Not Detect [facility] 09/18/2024 12:5 5 PM EDT 09/18/2024 3:19 PM EDT us Generic External Data Provider LAB MICROBIOLOGY - GENERAL ORDERABLES Final Result [facility] [address] [place] [phone] [phone] * Chlamydia/N. Gonorrhoeae RNA, TMA, Urogenitial (09/18/2024 12:55 PM EDT) CT PCR NOT DETECTED Not Detect. [facility] Comment:A not detected test result [...] psychologicalconsequences. NG PCR NOT DETECTED Not Detect. [facility] Comment:A not detected test result [...] PM EDT 09/18/2024 3:19 PM EDT Narrative [facility] - 09/18/2024 6:28 PM EDT Vaginal us Generic External Data Provider LAB MICROBIOLOGY - GENERAL ORDERABLES Final Result Performing Organization Address [facility] Co de Phone Number [facility] [address] [place] [phone] * (ABNORMAL) Lipid Panel, Standard (07/04/2024 6:55 AM EST) Triglycerides 134 <150 mg/dL [facility] Comment:Desirable Triglyceri de: less than 150 mg/dLBorderline High Triglyceride 150-199 mg/dLHigh Triglyceride: 200-499 mg/dLVery High Triglyceride: greater than or equal to 5OO mg/dL Cholesterol 164 <200 mg/dL [facility] Comment:Desirable Cholestero l: less than 200 mg/dLBorderline High Cholesterol: 200-239 mg/dLHigh Cholesterol: greater than 239 mg/dL LDL Cholesterol Calculated 104(H) <100 mg/dL [facility] Comment:Desirable LDL: less than 100 mg/dLNear Optimal/Above Optimal LDL: 110- 129 mg/dLBorderline High LDL: 130-159 mg/dLHigh LDL: 160-189 mg/dLVery High LDL: greater than or equal to 190 mg/dL HDL Cholesterol 34(L) >40 mg/dL [facility] Comment:Desirable HDL: great er than 40 mg/dL Note: This HDL assay may give artificially low results in patients with liver disease. Blood Venous blood specimen / Unknown 07/04/2024 6:55 AM EST 07/04/2024 6:55 AM EST us Reilly Mccoy MD LAB BLOOD ORDERABL ES Final Result Performing Organization Address [facility]/ZIP Co de Phone Number [facility] [address] [place] [phone] * HIV-1 RNA, Quantitative, Real-Time PCR with Reflex to Genotype (RTI, PI, Integrase) (07/06/2022 9:05 AM EST) Pathologist [facility] HIV 1 RNA, QN PCR NOT DETECTED copies/mL [facility], HIV 1 RNA, QN PCR NOT DETECTED Log copies/mL [facility], Comment: REFERENCE RANGE: NOT DETECTED copies/mL ?NOT DETECTED ??Log copies/mL This test was performed using Real-Time Polymerase Chain Reaction. Reportable range is 20 to 10,000,000 copies/mL (1.30-7.00 Log copies/mL). 07/06/2022 9:05 AM EST 07/06/2022 9:06 AM EST Narrative [facility] - 07/13/2022 8:24 PM EST FASTING:YES FASTING: YES us Reilly Mccoy MD LAB BLOOD ORDERABL ES Final Result [facility] [address], [place] [address] [employer]/[facility], [address] [place] [address] * Hepatitis C Antibody with Reflex to HCV, RNA, Quantitative, Real-Time PCR (07/06/2022 9:05 AM EST) Pathologist [facility] Hepatitis C Antibody NON-REACT CADY NON-REACT CADY [employer] [place] [employer] Index 0.03 <1.00 [employer] [place] [employer] Comment: HCV antibody was non-reactive. There is no laboratory evidence of HCV infection. In most cases, no further action is required. However, if recent HCV exposure is suspected, a test for HCV RNA (test code 38958) is suggested. For additional information please refer to http://education.VigLink/faq/TTW27l8 (This link is being provided for informational/ educational purposes only.) Blood Venous blood specimen / Unknown 07/06/2022 9:05 AM EST 07/06/2022 9:06 AM EST Narrative [facility] - 07/13/2022 8:24 PM EST FASTING:YES FASTING: YES Reilly Mccoy MD LAB BLOOD ORDERABL ES Final Result [facility] [address] [place] [address], [facility], [place] [address] [facility] [address] [facility], (Nl[address]) [place] [address] * THINPREP TIS PAP (04/04/2022 11:24 AM [...] with computer assisted technology. CONVERTED LEGACY LABS Power Plant Operator : SEE COMMENT CONVERTED LEGACY LABS Comment: MSM, CT(ASCP) CT screening location: [address] ??[phone] Infection Shift in vaginal jono suggestive of [...] Most Recently Relevant to Health Maintenance [place] [address] [place] [address] HEALTH PLAN Care Teams Poultry Inspector Relationship Specialty Start Date End Date Reilly Taylor MD [address] [place] [phone] PCP - General Internal Medicine 10/14/19
--- OUTSIDE RECORDS SUMMARY | 2024-10-03 14:31 | XMS_ITS | Encounter Summary ---
Author Organization [employer] Address [address] [facility] [address] [address] Care Team Providers Care Field Sales Executive Name Role Phone Reilly Taylor MD Primary Care Prov ider Reason for Visit * Reason Onset Date Comments Med Refill 12/13/2022 Encounter Details Date Type Department Care Team (Late st Contact Info) Description 12/13/2022 Refill [facility] MEDICINE [address] [place], [place] [phone] Reilly Taylor MD [address] [place], [place] [phone] Primary hypertension Social History Tobacco Use Types [...] Info) Description 11/03/2024 3:30 PM EDT Telemedicine [facility] CHC MED & PEDS 505 [place], [place] [phone] Reilly Taylor MD [address] [place], [place] [phone] documented as of this encounter Visit Diagnoses Diagnosis Primary hypertension Unspecified essential hypertension documented in this encounter Additional Health Concerns Assessment Noted Time PHQ-9 Depression Total Score: 1 09/01/19 23 2:22 PM EDT documented as of this encounter Care Teams Field Sales Executive Relationship Specialty Start Date End Date Reilly Taylor MD [address] [place] [phone] PCP - General Internal Medicine 10/14/19 documented as of this encounter
== END 2024-10-03 14:30 | disposition home or self-care (01) ==
LOC: HO.LNP 14:29
PROVIDERS: Visit Provider Advanced Practice Midwife
DX: Z13.89 Encounter for screening for other disorder (principal)

== ENCOUNTER 2024-10-06 15:14 | Outpatient (AMB) | payer OTHER, SELFPAY ==
--- NOTE | 2024-10-06 15:15 | MHC.OFFVIS ---
Intake Visit Reasons: EMB results Allergies No Known Allergies Allergy (Verified 10/06/24 15:36) Medication List - Last Reconciled 10/06/24 by Angeles Vera CNM cetirizine 10 mg PO DAILY hydrochlorothiazide 25 mg PO DAILY lisinopril 40 mg PO DAILY HPI HPI EMB results: Details: lmp 07/06/24----09/26/24, This is a tele visit to review patient's EMB results they were done last week. She has a history of abnormal uterine bleeding she is not currently sexually active though she has been in the past. She has a boyfriend who lives in [facility] they met online and they are planning on getting together in . She is open to doing something about her irregular bleeding is that is why she was seen. She had a pelvic ultrasound done before the EMB all it showed was a small septated ovarian cyst for which I will probably order a follow-up ultrasound. I review the results of her endometrial biopsy which showed no atypia or carcinoma. There was proliferative endometrium. Discussed that this is in keeping with her history of the irregular bleeding.. Discussed the plan that we had discussed before which was to place a Mirena IU S to help with her abnormal uterine bleeding pattern. In the meantime she is going to be trying to work on weight loss though she has not had too much success yet she does have an appointment coming in October with her primary care doctor but I asked her to step up her efforts on weight loss in the meantime to see what she can do herself meanwhile she and I have an appointment on which was to review the EMB results but now we will insert a Mirena at that visit instead. She said she tolerated the procedure okay with just a little bit of cramping and there was no real challenge in inserting the sound or the sampling device so we will plan on a Mirena insertion on this . 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 Telehealth Telehealth Telehealth Platform: [employer] Location of provider rendering services: practice address Location of patient: address on file Patient Identification confirmed using: Name, : Yes Telehealth method: video Patient verbally consented to treatment: Yes Patient verbally consented to billing insurance company: Yes Patient informed of any privacy concerns related to visit: Yes Minutes spent on Phone/Video with Pt.: 12 (5 cr/12 speaking with patient by video/7 charting=24) Results Reviewed Results Reviewed: Name: Anne Nieves Age/Sex: 29/F Attending: Angeles Vera CNM : 1995 Submitted by: Angeles Vera CNM Copies to: Reilly Taylor MD MR #: [id number] Status: DEP REF Collected: 10/02/24 Location: [facility] Received: 10/03/24 Diagnosis Endometrium, biopsy: Benign proliferative endometrium with focal ectatic stromal vessels; no atypia or carcinoma. Clinical History Menorrhagia with irregular cycle Microscopic Description Microscopic sections reviewed. Material Received EMB Gross Description Received in formalin labeled ?EMB? is a 2.0 x 1.5 x 0.45 cm aggregate of multiple irregular and tubular cast fragments of congested and hemorrhagic christie-brown tissue and red-maroon blood, submitted in toto in a cassette labeled A. CEDS Copies To Reilly Taylor MD [address] [address] Angeles Vera CNM [facility] Women's Services [address] [place] [address], 3rd Floor [place], [place] [phone] NOTE: Unless otherwise stated, all tissue is formalin-fixed and paraffin-embedded. Some or all of the immunohistochemical tests reported herein may have been developed and their performance characteristics determined by [facility]. They have not been cleared or approved by the U.S. Food and Drug Administration (FDA). However, the FDA has determined that such clearance or approval is not necessary. This laboratory is certified under the Clinical Laboratory Improvement Amendments of 1988 (CLIA) as qualified to perform high complexity clinical laboratory testing. Patient: Anne Nieves Age/Sex: 29[facility]F [id number] MR#: [id number] Page 1 of 2 Assessment & Plan Assessment & Plan (1) Menometrorrhagia: Code(s): N92.1 - Excessive and frequent menstruation with irregular cycle Category: Medical (2) Essential hypertension: Code(s): I10 - Essential (primary) hypertension Category: Medical (3) Obesity, morbid, BMI 40.0-49.9: Code(s): E66.01 - Morbid (severe) obesity due to excess calories Category: Medical (4) Hirsutism: Code(s): L68.0 - Hirsutism Category: Medical (5) Ovarian cyst: Comment: septated, will recheck 3 months Code(s): N83.209 - Unspecified ovarian cyst, unspecified side Category: Medical Plan lmp 07/06/24----09/26/24, This is a tele visit to review patient's EMB results they were done last week. She has a history of abnormal uterine bleeding she is not currently sexually active though she has been in the past. She has a boyfriend who lives in [place] they met online and they are planning on getting together in . She is open to doing something about her irregular bleeding is that is why she was seen. She had a pelvic ultrasound done before the EMB all it showed was a small septated ovarian cyst for which I will probably order a follow-up ultrasound. I review the results of her endometrial biopsy which showed no atypia or carcinoma. There was proliferative endometrium. Discussed that this is in keeping with her history of the irregular bleeding.. Discussed the plan that we had discussed before which was to place a Mirena IU S to help with her abnormal uterine bleeding pattern. In the meantime she is going to be trying to work on weight loss though she has not had too much success yet she does have an appointment coming in October with her primary care doctor but I asked her to step up her efforts on weight loss in the meantime to see what she can do herself meanwhile she and I have an appointment on which was to review the EMB results but now we will insert a Mirena at that visit instead. She said she tolerated the procedure okay with just a little bit of cramping and there was no real challenge in inserting the sound or the sampling device so we will plan on a Mirena insertion on this . plan on mirena insertion 10/09/24. plan on mirena insertion 10/09/24 at visit Orders: Orders US pelvic and transvaginal 3 Months I10 - Essential (primary) hypertension, N83.209 - Unspecified ovarian cyst, unspecified side, N92.1 - Excessive and frequent menstruation with irregular cycle Coding Level of Care Code Tele Est Pt Level 3 (40494) Diagnoses Menometrorrhagia N92.1 Essential hypertension I10 Obesity, morbid, BMI 40.0-49.9 E66.01 Hirsutism L68.0 Ovarian cyst N83.209
--- OUTSIDE RECORDS SUMMARY | 2024-10-06 15:16 | XMS_ITS | Clinical Summary ---
Author Organization [facility] Address [address] [place] [address] Care Team Providers Care Bun Panner Name Role Phone Reilly Ocasio MD Primary Care Provider [phone] Allergies No known active allergies Medications Medication [...] age to complete this topic Care Teams Bun Panner Relationship Specialty Start Date End Date Reilly Ocasio MD [address] [place] [phone] PCP - General Internal Medicine 07/27/21
--- OUTSIDE RECORDS SUMMARY | 2024-10-06 15:16 | XMS_ITS | Clinical Summary ---
Author Organization [employer] Address [address] [facility] 7t [place] [address] Care Team Providers Care Tank Maker Wood Name Role Phone Reilly Taylor MD Primary [...] Apply topically 2 times daily. 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, she is also complaining of episodes of hot flashes Allergy 07/23/2023 Assessment & Plan (07/23/2023 8:51 AM EST): Patient refers ever since being exposed to a new plastic material at her job she has been suffering from allergies, told to continue with zyrtec, will refer to jewelry consultant Iron deficiency 06/14/2022 Assessment & Plan (07/28/2024 [...] Plan (06/14/2022 2:37 PM EST): Controlled, saw pain management physician who ordered a abd/pelvic ct scan to r/o renal artery stenosis, will order new labs and follow up in 3 months Encounters Date Type Department Care Team Description 09/18/2024 Orders Only GENERIC EXTERNAL DATA DEPARTMENT Provider, Generic External Data 09/18/2024 Telephone [facility] MED & PEDS [address] [place] [address] Reilly Taylor MD billing statement 09/16/2024 Refill [facility] MED & PEDS [address] [place] [address] Reilly Taylor MD 08/21/2024 Telephone [facility] MEDICINE [address] [place] [address] Reilly Taylor MD Referral 07/28/2024 3:15 PM EDT Telemedicine [facility] [address] [place] [address] Reilly Taylor MD Primary hypertension (Primary Dx); Iron deficiency; Menorrhagia with regular cycle 07/28/2024 Travel 07/25/2024 Telephone [facility] MED & PEDS [address] [place], [place] [phone] Reilly Taylor MD chart prep from Last [...] [facility] [address] [place] [address] OcasioReilly Grijalva MD [address] [place] [address] Health Maintenance Due Date Last Done Comments Disability Screening 1993 Alcohol/Substance Use Screening 2005 Family Planning (PISQ) [...] Procedure Name Priority Date/Time Associated Diagnosis Comments HEMATOXYLIN AND EOSIN STAIN Routine 10/02/2024 1:06 PM EDT US PELVIS TRANSVAGINAL Routine 09/19/2024 9:30 AM [...] Recently Relevant to Health Maintenance Results * Hematoxylin and Eosin Stain (10/02/2024 1:06 PM EDT) 10/02/2024 1:06 PM EDT 10/03/2024 10:18 AM EDT [facility] - 10/06/2024 11:05 AM EDT ----- ------- Name: Anne Nieves ?Age/Sex: 29/F ? : 1995 Unit#: [id number] ?? Attend Dr: Angeles Vera CNM ?Re10/02/24 ?Status: DEP REF ? Location: HO.LNP ?Disch: ? ----- ------- SPEC : [id number] ? RECD: 10/03/24-1018 ? STATUS: ??SOUT ? REQ NUM: [id number] ? NATE: 10/02/24-1306 ? SUBM DR: Angeles Vera CNM ? ENTERED: ??10/03/24-1038 ?SP TYPE: Surgical ? OTHR DR: Reilly Taylor MD ORDERED: ??HE Stain/2, Gross Micro L4 ? Diagnosis ?? Endometrium, biopsy: ??Benign proliferative endometrium with focal ectatic stromal ?? vessels; no atypia or carcinoma. ?Clinical History Menorrhagia with irregular cycle ?Microscopic Description Microscopic sections reviewed. ? Material Received ?? EMB ? Gross Description Received in formalin labeled ?EMB? is a 2.0 x 1.5 x 0.45 cm aggregate of multiple irregular and tubular cast fragments of congested and hemorrhagic christie-brown tissue and red-maroon blood, submitted in toto in a cassette labeled A. CEDS Copies To: ?? Reilly Taylor MD ?? [facility] ?? [address] ?? [place] [address] ?? [phone] ?? Angeles Vera CNClaire ?? [facility] ?? [address] [facility], 3rd Floor ?? [place] [address] ?? [phone] ----- ------- Signed (signature on file) Linda Baker 10/06/241104 ? ----- ------- ? END OF REPORT ? us Generic External Data Provider LAB BLOOD ORDERAB LES Final Result [facility] [address] [place] [phone] * Pelvis Transvaginal (09/19/2024 9:30 AM EDT) Anatomical Region Laterality Modality Pelvis Ultrasound 09/19/2024 9:30 AM EDT Narrative 09/19/2024 11:25 AM EDT ? [facility] ?[address] ? [place] [address] ? Ultrasound Report ? Signed ? Patient: Mary Mackay,Jetzabell ?MR#: ?? [id number] ? : 1995 ?Acct:[id number] ? Age/Sex: 29 / F ?ADM Date: 05/02/25 ? Loc: HO.HMGCX ? Attending Dr: Angeles Vera CNM ? Ordering Physician: Angeles Vera CNM ?? Date of Service: 09/19/24 ?? Procedure(s): US pelvic and transvaginal ?? Accession Number(s): [id number] ? cc: Reilly Taylor MD; Angeles Vera [...] ??Pablito Toure MD ??09/19/2024 11:22 AM EDT ?? RP ? Dictated By: ?Pablito Toure MD ? Signed By: ?<Electronically signed by Pablito Toure MD in OV> ?09/19/24 1122 ? DD/ 0930 ? TD/TT: 09/19/24 1000 ? Physician Internist: ? Procedure Note Donotuseinterpreter, Image - 09/19/2024 [facility] [facility] [place] [address] Ultrasound Report Signed Patient: Anne Nieves#: [id number] : 1995Acct:[id number] Age/Sex: 29 / FADM Date: 09/19/24 Loc: HO.HMGCX Attending Dr: Angeles Vera CNM Ordering Physician: Angeles Vera CNM Date of Service: 09/19/24 Procedure(s): US pelvic and transvaginal Accession Number(s): [id number] cc: Reilly Taylor MD; Angeles Vera CNM [...] 09/19/24 1122 DD/ 0930 TD/TT: 09/19/24 1000 Physician Internist: [facility] External Provider IMG US PROCEDURES Final Result * (ABNORMAL) Bacterial Vaginosis (09/18/2024 12:55 PM EDT) TRICHOMONAS VAGINALIS DETECTION BY PCR NOT DETECTED Not Detect [facility] BACTERIAL VAGINOSIS DETECTION BY PCR POSITIVE(A) Negative [facility] Comment:The BV organism [...] DETECTION BY PCR NOT DETECTED Not Detect [facility] Emily glab krusei PCR NOT DETECTED Not Detect [facility] 09/18/2024 12:5 5 PM EDT 09/18/2024 3:19 PM EDT Generic External Data Provider LAB MICROBIOLOGY - GENERAL ORDERABLES Final Result [facility] [address] [place] [phone] * Chlamydia/N. Gonorrhoeae RNA, TMA, Urogenitial (09/18/2024 12:55 PM EDT) CT PCR NOT DETECTED Not Detect. [facility] Comment:A not detected [...] psychologicalconsequences. NG PCR NOT DETECTED Not Detect. [facility] Comment:A not detected [...] PM EDT 09/18/2024 3:19 PM EDT Narrative [facility] - 09/18/2024 6:28 PM EDT Vaginal us Generic External Data Provider LAB MICROBIOLOGY - GENERAL ORDERABLES Final Result [facility] [address] [place] [phone] * (ABNORMAL) Lipid Panel, Standard (07/04/2024 6:55 AM EST) Triglycerides 134 <150 mg/dL [facility] Comment:Desirable Triglyceri de: less than 150 mg/dLBorderline High Triglyceride 150-199 mg/dLHigh Triglyceride: 200-499 mg/dLVery High Triglyceride: greater than or equal to 5OO mg/dL Cholesterol 164 <200 mg/dL [facility] Comment:Desirable Cholestero l: less than 200 mg/dLBorderline High Cholesterol: 200-239 mg/dLHigh Cholesterol: greater than 239 mg/dL LDL Cholesterol Calculated 104(H) <100 mg/dL [facility] Comment:Desirable LDL: less than 100 mg/dLNear Optimal/Above Optimal LDL: 110- 129 mg/dLBorderline High LDL: 130-159 mg/dLHigh LDL: 160-189 mg/dLVery High LDL: greater than or equal to 190 mg/dL HDL Cholesterol 34(L) >40 mg/dL [facility] Comment:Desirable HDL: great er than 40 mg/dL Note: This HDL assay may give artificially low results in patients with liver disease. Blood Venous blood specimen / Unknown 07/04/2024 6:55 AM EST 07/04/2024 6:55 AM EST Reilly Mccoy MD LAB BLOOD ORDERABL ES Final Result [facility] [address] [place] [phone] * HIV-1 RNA, Quantitative, Real-Time PCR with Reflex to Genotype (RTI, PI, Integrase) (07/06/2022 9:05 AM EST) Pathologist [facility] HIV 1 RNA, QN PCR NOT DETECTED copies/mL [facility], HIV 1 RNA, QN PCR NOT DETECTED Log copies/mL [facility], Comment: REFERENCE RANGE: NOT DETECTED copies/mL ?NOT DETECTED ??Log copies/mL This test was performed using Real-Time Polymerase Chain Reaction. Reportable range is 20 to 10,000,000 copies/mL (1.30-7.00 Log copies/mL). 07/06/2022 9:05 AM EST 07/06/2022 9:06 AM EST Narrative [facility] - 07/13/2022 8:24 PM EST FASTING:YES FASTING: YES Reilly Mccoy MD LAB BLOOD ORDERABL ES Final Result Performing Organization Address [facility] Co de Phone Number [address], [facility] [place] [address] [facility], [address] [place] [address] * Hepatitis C Antibody with Reflex to HCV, RNA, Quantitative, Real-Time PCR (07/06/2022 9:05 AM EST) Hepatitis C Antibody NON-REACT CADY NON-REACT CADY [facility] Index 0.03 <1.00 [facility] Comment: HCV antibody was non-reactive. There is no laboratory evidence of HCV infection. In most cases, no further action is required. However, if recent HCV exposure is suspected, a test for HCV RNA (test code 06254) is suggested. For additional information please refer to http://education.Retora Black/faq/ODS05v0 (This link is being provided for informational/ educational purposes only.) Blood Venous blood specimen / Unknown 07/06/2022 9:05 AM EST 07/06/2022 9:06 AM EST Narrative [facility] - 07/13/2022 8:24 PM EST FASTING:YES FASTING: YES Reilly Mccoy MD LAB BLOOD ORDERABL ES Final Result Performing Organization Address [facility] Co de Phone Number [address], [facility] [place] [address] [facility] [place] [employer] [address] [facility], ([address]) [place] [address] * THINPREP TIS PAP (04/04/2022 11:24 AM [...] with computer assisted technology. CONVERTED [facility]GACY LAB[facility] Rig Builder : SEE COMMENT [facility] LABS Comment: MSM, CT(ASCP) CT screening location: [address] ??[address] Infection Shift in vaginal jono suggestive of [...] 04/04/2022 11:2 4 AM EST Malgorzata Woods [facility] LAB PATHOLOGY ORDERABLES Final Result [facility] LABS from Last 3 Months or Most Recently Relevant to Health Maintenance [place] [address] [place] [address] PLAN Care Teams Tank Maker Wood Relationship Specialty Start Date End Date Reilly Taylor MD [address] [place] [phone] PCP - General Internal Medicine 10/14/19
--- OUTSIDE RECORDS SUMMARY | 2024-10-06 15:16 | XMS_ITS | Encounter Summary ---
Author Organization [employer] Address [address] [place] [address] Care Team Providers Care Client Development Consultant Name Role Phone Reilly Taylor MD Primary Care Prov ider Reason for Visit * Reason Onset Date Comments Med Refill 08/29/2023 Encounter Details Date Type Department Care Team ([facility] st Contact Info) Description 08/29/2023 Refill [facility] MED & PEDS [address] [place] [address] Reilly Taylor MD [address] [place] [address] Social History Tobacco Use Types Packs/Day Years [...] EDT Telemedicine [facility] MED & PEDS [address] [place] [address] Reilly Taylor MD [address] [place] [address] documented as of this encounter Visit Diagnoses Not on filedocumented in this encounter Additional Health Concerns Assessment Noted Time PHQ-9 Depression Total Score: 1 09/01/19 23 2:22 PM EDT documented as of this encounter Care Teams Client Development Consultant Relationship Specialty Start Date End Date Reilly Taylor MD [address] [place] [address] PCP - General Internal Medicine 10/14/19 documented as of this encounter
--- OUTSIDE RECORDS SUMMARY | 2024-10-06 15:16 | XMS_ITS | Encounter Summary ---
Author Organization [employer] Address [address] [place] [address] Care Team Providers Care Abalone Fisherman Name Role Phone Reilly Taylor MD Primary Care Prov ider Reason for Visit * Reason Onset Date Comments Med Refill 12/13/2022 Encounter Details Date Type Department Care Team (Late Contact Info) Description 12/13/2022 Refill [facility] MEDICINE [address] [place], [place] [phone] Reilly Taylor MD [address] [place], [place] [phone] Primary hypertension Social History Tobacco Use Types [...] Info) Description 11/03/2024 3:30 PM EDT Telemedicine [facility] MED & PEDS [address] [place], [place] [phone] Reilly Taylor MD [address] [place], [place] [phone] documented as of this encounter Visit Diagnoses Diagnosis Primary hypertension Unspecified essential hypertension documented in this encounter Additional Health Concerns Assessment Noted Time PHQ-9 Depression Total Score: 1 09/01/19 23 2:22 PM EDT documented as of this encounter Care Teams Abalone Fisherman Relationship Specialty Start Date End Date Reilly Taylor MD [address] [place] [address] PCP - General Internal Medicine 10/14/19 documented as of this encounter
--- OUTSIDE RECORDS SUMMARY | 2024-10-06 15:16 | XMS_ITS | Encounter Summary ---
Author Organization [employer] Address [address] [place] [address] Care Team Providers Care Revit Drafter Name Role Phone Reilly Taylor MD Primary Care Prov ider Reason for Visit * Reason Onset Date Comments Referral 08/21/2024 Encounter Details Date Type Department Care Team (Late st Contact Info) Description 08/21/2024 Telephone [facility] MEDICINE [address] [place] [address] Reilly Taylor MD [address] [place] [address] Referral Social History Tobacco Use Types Packs/Day [...] a referral for hematology. Contact pt at [phone] documented in this encounter Plan of Treatment Upcoming Encounters Date Type Department Care Team (Late st Contact Info) Description 11/03/2024 3:30 PM EDT Telemedicine [facility] MED & PEDS [address] [place] [address] Reilly Taylor MD [address] [place] [address] documented as of this encounter Visit Diagnoses Not on filedocumented in this encounter Additional Health Concerns Assessment Noted Time PHQ-9 Depression Total Score: 1 09/01/19 23 2:22 PM EDT documented as of this encounter Care Teams Revit Drafter Relationship Specialty Start Date End Date Reilly Taylor MD [address] [place] [address] PCP - General Internal Medicine 10/14/19 documented as of this encounter
== END 2024-10-06 16:30 | disposition home or self-care (01) ==
LOC: HO.HWS 15:14
PROVIDERS: PCP Internal Medicine; Visit Provider Advanced Practice Midwife
DX: N92.1 Excessive and frequent menstruation with irregular cycle (principal); I10 Essential (primary) hypertension; E66.01 Morbid (severe) obesity due to excess calories; L68.0 Hirsutism; N83.209 Unspecified ovarian cyst, unspecified side
CPT/HCPCS: 99213

== ENCOUNTER → 2024-10-09 13:22 | Outpatient (BNVA) | payer OTHER, SELFPAY | PROVIDERS: PCP Internal Medicine; Visit Provider Advanced Practice Midwife | DX: Z30.430 Encounter for insertion of intrauterine contraceptive device (principal); N92.1 Excessive and frequent menstruation with irregular cycle | CPT/HCPCS: 58300; J7298 ==

== ENCOUNTER 2024-11-07 08:25 | Outpatient (REF) | payer OTHER, SELFPAY ==
--- OUTSIDE RECORDS SUMMARY | 2024-11-07 08:33 | XMS_ITS | Clinical Summary ---
Author Organization [employer] Address [address] [facility] 7t [place] [address] Care Team Providers Care Rabies Inspector Name Role Phone Reilly Taylor MD [...] 07/09/19 26 Active Emollient (Cetaphil) moisturizing lotion APPLY TOPICALLY TWICE A DAY 237 mL 1 5 Active Active Problems Problem Noted Date Diagnosed Date Menorrhagia with regular cycle 07/28/2024 Assessment & Plan (07/28/2024 4:04 PM EDT): Will refer to ob-roof service technician, she is also complaining of episodes of hot flashes Allergy 07/23/2023 Assessment & Plan (07/23/2023 8:51 AM EST): Patient refers ever since being exposed to a new plastic material at her job she has been suffering from allergies, told to continue with zyrtec, will refer to medical director Iron deficiency 06/14/2022 Assessment & Plan (11/03/2024 3:51 PM EDT): New labs will be ordered, her symptoms of heavy menstrual bleeding improved after mirena insertion, will decide bases on her lab results if she will continue on treatment Assessment & Plan (07/28/2024 4:02 PM EDT): [...] therapy Primary hypertension 06/14/2022 Assessment & Plan (11/03/2024 3:50 PM EDT): Controlled, keep low sodium diet and exercise as tolerated, follow up in 2 weeks Patient is complaining of headaches, told to hold hydrochlorothiazide to check if this is the medication that is causing her symptoms, Assessment & Plan (07/28/2024 4:01 PM EDT): [...] Plan (06/14/2022 2:37 PM EST): Controlled, saw foam molder who ordered a abd/pelvic ct scan to r/o renal artery stenosis, will order new labs and follow up in 3 months Encounters Date Type Department Care Team Description 11/03/2024 3:30 PM EDT Telemedicine [facility] [address] [place] [address] Reilly Taylor MD Iron deficiency (Primary Dx); Primary hypertension 10/31/2024 Telephone [facility] [address] [place] [address] Reilly Taylor MD Chart Prep 09/18/2024 Orders Only GENERIC EXTERNAL DATA DEPARTMENT Provider, Generic External Data 09/18/2024 Telephone [facility] [address] [facility] [place], [place] [phone] Reilly Taylor MD billing statement 09/16/2024 Refill [facility] [address] [place], [place] [phone] Reilly Taylor MD 08/21/2024 Telephone [facility] [address] [place], [place] [phone] Reilly Taylor MD Referral from Last 3 Months Immunizations Immunization Administration [...] housing situation today? I have iveth law 11/03/[address] you li ve. Do you have problems with any of the following? None of the above 11/03/2024 Food Insecurity Answer Date Recorded Within the past 12 months, y ou worried that your food would run out before you got money to buy more: Never True 11/03/2024 Within the past 12 months,th e food you bought just didn't last and you didn't have enough money to get more: Never True Transportation Answer Date Recorded In the past 12 months, has l ack of transportation kept you from medical appts, meetings, work or from getting things needed for daily living? No 11/03/2024 Utilities Answer Date Recorded In the past 12 months, has t he [employer], gas, oil or water [employer] threatened to shut off services in your home? No 11/03/2024 Depression Answer Date Recorded Patient Health Questionnaire-2 Score 0 11/03/2024 Internet Access Answer Date Recorded Internet Access Q1 No 11/03/2024 Internet Access Q2 I do not want or need it 10/19 Comments No Sex and Gender Information Value Date Recorded Sex Assigned at Female 03/20/2022 10:29 AM EDT Legal Sex Female 10:29 AM EDT Gender Identity Female 03/20/2022 10:29 AM EDT Sexual Orientation Straight 03/20/2022 10 :29 AM EDT Last Filed Vital Signs Vital Sign Reading Time Taken Comments Blood Pressure 131/73 11/03/2024 3:17 PM EDT Pt took BP at home. Pulse 81 11/03/2024 3:17 PM EDT Temperature 36.6 C (97.8 F) 06/30/2024 3:05 PM EST Respiratory Rate 20 06/30/2024 3:05 PM EST Oxygen Saturation - - Inhaled Oxygen Concentration - - Weight 107 kg (236 lb) 06/30/2024 3:05 PM EST Height 162.6 cm (5' 4 ) 06/30/2024 3:05 PM EST Body Mass Index 40.51 06/30/2024 3:05 PM EST Plan of Treatment Upcoming Encounters Date Type Department Care Team ([facility] st Contact Info) Description 11/12/2024 2:15 PM EDT Telemedicine [facility] [address] [place] [address] Reilly Taylor MD [address] [place] [address] Health Maintenance Due Date Last Done Comments Alcohol/Substance Use Screening 2005 Family Planning (PISQ) 2008 HPV Vaccines (3 - 3-dose series) 09/24/2019 04/29/2019, 03/26/2019 COVID-19 Vaccine ( season) 2024 05/27/2021, 11/19/2020, 10/29/2020 Influenza Vaccine (Season Ended) 2025 03/05/2019, 06/18/2018, 05/22/2017, Additional history exists DTaP/Tdap/Td Vaccines (2 - Td or Tdap) 09/29/2025 09/30/2015 Depression Screening 11/03/2025 11/03/2024, 09/01/19 23 Disability Screening 11/03/2025 11/03/2024 SDOH Screening 11/03/2025 11/03/2024 Tobacco Screening 11/03/2025 11/03/2024 Cervical Cancer Screening 10/03/2027 HPV/Cotest 10/03/2027 10/02/2024 Pap Smear 10/03/2027 10/02/2024, 04/04/2022 Lipid Panel 07/04/2029 07/04/2024, 06/21, 09/05/2021, Additional [...] Years) and At-Risk Patients (6 to 49) Years Aged Out No longer eligible based on patient's age to complete this topic RSV under 20 months Aged Out No longe r eligible based on patient's age to complete this topic Rotavirus Vaccines Aged Out No longer eligible based on patient's age to complete this topic Procedures Procedure Name Priority Date/Time Associated Diagnosis Comments PAP SMEAR Routine 10/02/2024 1:06 PM EDT HPV DNA, LOW/HIGH RISK Routine 10/02/2024 1:06 PM EDT HEMATOXYLIN AND EOSIN STAIN Routine 10/02/2024 1:06 [...] Routine 07/06/2022 9:05 AM EST Primary hypertension from Last 3 Months or Most Recently Relevant to Health Maintenance Results * Hematoxylin and Eosin Stain (10/02/2024 1:06 PM EDT) 10/02/2024 1:06 PM EDT 10/03/2024 10:18 AM EDT [facility] - 10/06/2024 11:05 AM EDT ----- ------- Name: Anne Nieves Age/Sex: 29/F : 1995 Unit#: [id number] Attend Dr: Angeles Vera CNM Re10/02/24 Status: DEP REF Location: [facility] Disch: ----- ------- SPEC : [id number] RECD: 10/03/24-1018 STATUS: NAE FROST NUM: [id number] NATE: 10/02/24-[address] [facility] [address]: Angeles Vera CNM ENTERED: 10/03/24-1037 SP TYPE: Surgical OTHR DR: Reilly Taylor MD ORDERED: HE Stain/2, Gross Micro L4 Diagnosis Endometrium, biopsy: Benign proliferative endometrium with focal ectatic stromal vessels; no atypia or carcinoma. Clinical History Menorrhagia with irregular cycle Microscopic Description Microscopic sections reviewed. Material Received EMB Gross Description Received in formalin labeled EMB is a 2.0 x 1.5 x 0.45 cm aggregate of multiple irregular and tubular cast fragments of congested and hemorrhagic christie-brown tissue and red-maroon blood, submitted in toto in a cassette labeled A. CEDS Copies To: Reilly Taylor MD [address] [phone] Angeles Vera CNM [facility] Women's Services [address] [facility], 3rd Floor [place], [place] [phone] ----- ------- Signed (signature on file) Linda Baker 10/06/24 1105 ----- ------- END OF REPORT Generic External Data Provider LAB BLOOD ORDERAB LES Final Result Performing Organization Address City/[facility]/ZIP Co de Phone Number [facility] [address] [place] [phone] * HPV DNA, Low/High Risk (10/02/2024 1:06 PM EDT) HPV High Risk Negative Negative [facility] HPV Genotype 16 Negative Negative [facility] HPV Genotype 18 Negative Negative [facility] Comment:HPV testing performe d at [facility] (CLIA#[id number]), [address] [place] [address].Testing for HPV was performed using the Najma MICAH 6800system. The presence of HPV in the female genital tract isassociated with a number of diseases, including cervicalcarcinoma. The HPV DNA high risk pool tests for HPV 31, 33,35, 39, 45, 51, 52, 56, 58, 59, 66 and 68. The testing forHPV 16 and 18 genotypes has also been performed. A positiveresult indicates detection of nucleic acid sequences fromone or more subtypes, whereas a negative result indicatessuch sequences were not detected. 10/02/2024 1:06 PM EDT 10/03/2024 9:40 AM EDT Generic External Data Provider LAB BLOOD ORDERAB LES Final Result Performing Organization Address [facility]/ZIP Co de Phone Number [facility] [address] [place] [address] [phone] * Pap Smear (10/02/2024 1:06 PM EDT) 10/02/2024 1:06 PM EDT 10/03/2024 9:40 AM EDT [facility] - 10/09/2024 10:13 AM EDT ----- ------- Name: Mary MackayCarlottalatonya Age/Sex: 29/F : 1995 Unit#: [id number] Attend Dr: Angeles Vera CNM Re10/02/24 Status: DEP [facility] Disch: ----- ------- SPEC : [id number] RECD: 10/03/24 STATUS: NAE FROST NUM: [id number] NATE: 10/02/24-[address] [facility] [address]: Angeles Vera CNM ENTERED: 10/03/24-9 SP TYPE: Pap Smr OTHR DR: Reilly Taylor MD ORDERED: Pap Smear Interpretation Satisfactory for evaluation (following processing with acid wash procedure). Negative for intraepithelial lesion or malignancy. Scant cellularity. HPV High Risk: Negative HPV Genotyping 16: Negative HPV Genotyping 18: Negative Clinical Information LMP: Unknown date Previous PAP test: Unknown date/findings Other history: Excessive and frequent menstruation with irregular cycle Material Received ThinPrep-Cervical Copies To: Reilly Taylor MD [address] [phone] Angeles Vera CNM [facility] Women's Services [address] [place] [address], [address] [place] [address] ----- ------- Signed (signature on file) Christiano Moy CT (ASCP) 10/09/24 1013 ----- ------- END OF REPORT us Generic External Data Provider LAB CYTOLOGY LEONEL PEARSON Final Result [facility] [address] [place] [phone] * US Pelvis Transvaginal (09/19/2024 9:30 AM EDT) Anatomical Region Laterality Modality Pelvis Ultrasound 09/19/2024 9:30 AM EDT Narrative 09/19/2024 11:25 AM EDT [facility] Adult Primary Care [address] [place] [address] [place] [address] Ultrasound Report Signed Patient: Anne Nieves MR#: [id number] : 1995 Acct:[id number] Age/Sex: 29 / F ADM Date: 09/19/24 Loc: HO.[facility] Attending Dr: Angeles Vera CNM Ordering Physician: Angeles Vera CNM Date of Service: 09/19/24 Procedure(s): US pelvic and transvaginal Accession Number(s): [id number] cc: Reilly Taylor MD; Angeles Vera CNM [...] 09/19/24 1122 DD/ 0930 TD/TT: 09/19/24 1000 Senior Manufacturing Engineer: Procedure Note Donotuseinterpreter, Image - 09/19/2024 [facility] Care [address] [facility] [place] [address] Ultrasound Report Signed Patient: Anne Nieves#: [id number] : 1995Acct:[id number] Age/Sex: Date: 09/19/24 [facility] [place]: Angeles Vera CNM Ordering Physician: Angeles Vera CNM Date of Service: 09/19/24 Procedure(s): US pelvic and transvaginal Accession Number(s): [id number] cc: Reilly Taylor MD; Angeles Vera CNM [...] 09/19/24 1122 DD/ 0930 TD/TT: 09/19/24 1000 Senior Manufacturing Engineer: us [facility] External Provider IMG US PROCEDURES Final Result * (ABNORMAL) Bacterial Vaginosis (09/18/2024 12:55 PM EDT) TRICHOMONAS VAGINALIS DETECTION BY PCR NOT DETECTED Not Detect [facility] BACTERIAL VAGINOSIS DETECTION BY PCR POSITIVE(A) Negative [facility] Comment:The BV organism targ ets [...] DETECTION BY PCR NOT DETECTED Not Detect [facility] Emily glab krusei PCR NOT DETECTED Not Detect [facility] 09/18/2024 12:5 5 PM EDT 09/18/2024 3:19 PM EDT us Generic External Data Provider LAB MICROBIOLOGY - GENERAL ORDERABLES Final Result [facility] [address] [place] [phone] * Chlamydia/N. Gonorrhoeae RNA, TMA, Urogenitial (09/18/2024 12:55 PM EDT) CT PCR NOT DETECTED Not Detect. [facility] Comment:A not detected test result [...] psychologicalconsequences. NG PCR NOT DETECTED Not Detect. [facility] Comment:A not detected test result [...] PM EDT 09/18/2024 3:19 PM EDT Narrative [facility] - 09/18/2024 6:28 PM EDT Vaginal us Generic External Data Provider LAB MICROBIOLOGY - GENERAL ORDERABLES Final Result [facility] [address] [place] [phone] * (ABNORMAL) Lipid Panel, Standard (07/04/2024 6:55 AM EST) Triglycerides 134 <150 mg/dL [facility] Comment:Desirable Triglyceri de: less than 150 mg/dLBorderline High Triglyceride 150-199 mg/dLHigh Triglyceride: 200-499 mg/dLVery High Triglyceride: greater than or equal to 5OO mg/dL Cholesterol 164 <200 mg/dL [facility] Comment:Desirable Cholestero l: less than 200 mg/dLBorderline High Cholesterol: 200-239 mg/dLHigh Cholesterol: greater than 239 mg/dL LDL Cholesterol Calculated 104(H) <100 mg/dL [facility] Comment:Desirable LDL: less than 100 mg/dLNear Optimal/Above Optimal LDL: 110- 129 mg/dLBorderline High LDL: 130-159 mg/dLHigh LDL: 160-189 mg/dLVery High LDL: greater than or equal to 190 mg/dL HDL Cholesterol 34(L) >40 mg/dL [facility] Comment:Desirable HDL: great er than 40 mg/dL Note: This HDL assay may give artificially low results in patients with liver disease. Blood Venous blood specimen / Unknown 07/04/2024 6:55 AM EST 07/04/2024 6:55 AM EST Reilly Mccoy MD LAB BLOOD ORDERABL ES Final Result Performing Organization Address City/[facility]/ZIP Co de Phone Number [facility] [address] [place] [phone] * HIV-1 RNA, Quantitative, Real-Time PCR with Reflex to Genotype (RTI, PI, Integrase) (07/06/2022 9:05 AM EST) HIV 1 RNA, QN PCR NOT DETECTED copies/mL [facility]/N IMT ([employer]) [facility], HIV 1 RNA, QN PCR NOT DETECTED Log copies/mL [facility] ([employer]) [facility], Comment: REFERENCE RANGE: NOT DETECTED copies/mL NOT DETECTED Log copies/mL This test was performed using Real-Time Polymerase Chain Reaction. Reportable range is 20 to 10,000,000 copies/mL (1.30-7.00 Log copies/mL). 07/06/2022 9:05 AM EST 07/06/2022 9:06 AM EST Narrative [facility] - 07/13/2022 8:24 PM EST FASTING:YES FASTING: YES Reilly Mccoy MD LAB BLOOD ORDERABL ES Final Result Performing Organization Address City/[facility]/ZIP Co de Phone Number [facility] [address] [place] [phone] [facility], [address] [place] [phone] * Hepatitis C Antibody with Reflex to HCV, RNA, Quantitative, Real-Time PCR (07/06/2022 9:05 AM EST) Hepatitis C Antibody NON-REACT CADY NON-REACT CADY [address] [place] [employer] Index 0.03 <1.00 [facility] Comment: HCV antibody was non-reactive. There is no laboratory evidence of HCV infection. In most cases, no further action is required. However, if recent HCV exposure is suspected, a test for HCV RNA (test code 95504) is suggested. For additional information please refer to http://education.[employer]/faq/NLO66u9 (This link is being provided for informational/ educational purposes only.) Blood Venous blood specimen / Unknown 07/06/2022 9:05 AM EST 07/06/2022 9:06 AM EST Narrative [facility] - 07/13/2022 8:24 PM EST FASTING:YES FASTING: YES Reilly Mccoy MD LAB BLOOD ORDERABL ES Final Result [facility] [address] [place] [phone] [place] [employer] [address] [facility], ([address]) [place] [phone] from Last 3 Months or Most Recently Relevant to Health Maintenance [place] [address] [place] [address] 3 Care Teams Rabies Inspector Relationship Specialty Start Date End Date OcasioReilly Grijalva MD [address] [place] [phone] PCP - General Internal Medicine 10/14/19
[2024-11-07 14:35] LABS: MANUAL DIFF FLAG NO
[2024-11-07 14:38] LABS: Basophils Percent Auto 0.4 % (0-2); Eosinophils Absolute Auto 0.1 X10*3/uL (0.0-0.4); Eosinophils Percent Auto 1.9 % (0-4); Hematocrit 34.7 % (37.0-47.0); Imm Gran Abs Auto 0.05 X10*3/uL (0.00-0.03); Imm Gran Pct Auto 0.7 % (0.0-0.4); Lymphocytes Percent Auto 27.1 % (20-40); Mean Corpuscular HGB Conc 31.7 g/dl (31.0-35.0); Mean Corpuscular Hemoglobin 23.6 pg (27.0-33.0); Mean Corpuscular Volume 74.3 fL (80.0-98.0); Mean Platelet Volume 10.2 fL (9.4-12.3); Monocytes Absolute Auto 0.5 X10*3/uL (0.1-1.2); Monocytes Percent Auto 6.1 % (2-11); Neutrophils Absolute Auto 4.8 x10*3/uL (2.0-8.3); Neutrophils Percent Auto 63.8 % (45-73); Platelet Count 298 X10*3/uL (160-400); Red Blood Count 4.67 X10*6/uL (4.20-5.50); Red Cell Distribution Width 14.6 % (11.0-16.0); White Blood Count 7.5 X10*3/uL (4.8-10.8)
[2024-11-07 15:01] LABS: Iron 23 mcg/dL (30-160); Percent Iron Saturation 8 % (15-50); Total Iron Binding Capacity 295 mcg/dL (228-428); Unsaturated Iron Binding 272 ug/dL
== END 2024-11-07 08:26 | disposition home or self-care (01) ==
LOC: HO.CHCLDS 08:25
PROVIDERS: Visit Provider Internal Medicine
DX: E61.1 Iron deficiency (principal)
CPT/HCPCS: 36415; 83540; 85025

== ENCOUNTER 2025-01-22 15:25 | Outpatient (REF) | payer OTHER, SELFPAY ==
--- OUTSIDE RECORDS SUMMARY | 2025-01-22 16:25 | XMS_ITS | Clinical Summary ---
Author Organization [facility] Address [address] [place] [address] Care Team Providers Care Earth Science Faculty Member Name Role Phone Reilly Ocasio MD Primary Care Provider [phone] Allergies No known active allergies Medications Medication [...] 82 08/11/2022 2:41 PM EDT Temperature 36.9 C (98.4 F) 08/11/2022 2:41 PM EDT Respiratory Rate - - Oxygen Saturation 100% [...] Screening (Pap Smear) 2014 COVID-19 Vaccine (3 2024-2 6 season) 2025 11/19/2020, 10/29/2020 Influenza Vaccine (#1) 2025 Hepatitis C Screening Completed 07/06/2022 Pneumococcal Vaccine Aged Out No long er eligible based on patient's age to complete this topic RSV Ped < 20 months Aged Out No longe r eligible based on patient's age to complete this topic Care Teams Earth [employer] Faculty Member Relationship Specialty Start Date End Date Reilly Ocasio MD [address] [place] [phone] PCP - General Internal Medicine 07/27/21
--- OUTSIDE RECORDS SUMMARY | 2025-01-22 16:25 | XMS_ITS | Encounter Summary ---
Author Organization [employer] Address [address] [place] [address] Care Team Providers Care Information Security Specialist Name Role Phone Reilly Taylor MD Primary Care Prov ider Reason for Visit * Reason Onset Date Comments Referral 08/21/2024 Encounter Details Date Type Department Care Team (Late st Contact Info) Description 08/21/2024 Telephone [facility] [address] [place] [address] Reilly Taylor MD [address] [place] [address] Referral Social History Tobacco Use Types Packs/Day [...] a referral for hematology. Contact pt at [phone] documented in this encounter Plan of Treatment Not on file documented as of this encounter Visit Diagnoses Not on filedocumented in this encounter Additional Health Concerns Assessment Noted Time PHQ-9 Depression Total Score: 1 09/01/19 23 2:22 PM EDT documented as of this encounter Care Teams Information Security Specialist Relationship Specialty Start Date End Date Reilly Taylor MD [address] [place] [phone] PCP - General Internal Medicine 10/14/19 documented as of this encounter
--- OUTSIDE RECORDS SUMMARY | 2025-01-22 16:25 | XMS_ITS | Encounter Summary ---
Author Organization [employer] Address [address] [place] [address] Care Team Providers Care Beamer Helper Name Role Phone Reilly Taylor MD Primary Care Prov ider Reason for Visit * Reason Onset Date Comments Med Refill 08/29/2023 Encounter Details Date Type Department Care Team ([facility] st Contact Info) Description 08/29/2023 Refill [facility] [address] [place] [address] Reilly Taylor MD [address] [place] [address] Social History Tobacco Use Types Packs/Day Years [...] as of this encounter Plan of Treatment Not on file documented as of this encounter Visit Diagnoses Not on filedocumented in this encounter Additional Health Concerns Assessment Noted Time PHQ-9 Depression Total Score: 1 09/01/19 23 2:22 PM EDT documented as of this encounter Care Teams Beamer Helper Relationship Specialty Start Date End Date Reilly Taylor MD [address] [place] [phone] PCP - General Internal Medicine 10/14/19 documented as of this encounter
--- OUTSIDE RECORDS SUMMARY | 2025-01-22 16:25 | XMS_ITS | Encounter Summary ---
Author Organization [employer] Address [address] [place] [address] Care Team Providers Care Angiographer Name Role Phone Reilly Tayolr MD Primary Care Prov ider Reason for Visit * Reason Onset Date Comments Med Refill 12/13/2022 Encounter Details Date Type Department Care Team (Late st Contact Info) Description 12/13/2022 Refill [facility] MED[facility] [address] [place], [place] [phone] Reilly Taylor MD [address] [place], [place] [phone] Primary hypertension Social History Tobacco Use Types [...] documented as of this encounter Care Teams Angiographer Relationship Specialty Start Date End Date Reilly Taylor MD [address] [place] [address] PCP - General Internal Medicine 10/14/19 documented as of this encounter
--- OUTSIDE RECORDS SUMMARY | 2025-01-22 16:25 | XMS_ITS | Clinical Summary ---
Author Organization [employer] Address [address] [facility] [address] [place] [address] Care Team Providers Care Real Estate Sales Associate Name Role Phone Reilly Taylor MD [...] by mouth Once per day. 30 tablet 5 07/09/19 26 Active losartan (Cozaar) 100 MG tablet Take 1 tablet (100 mg) by mouth Once per day. 30 tablet 5 11/13/19 26 Active psyllium (Metamucil) 58.6 % packet Take 1 packet (3.4 g of fiber) by mouth 2 times daily. Mix and drink with at least 8 ounces of water or juice. 60 packet 5 11/13/19 26 Active Emollient (Cetaphil) moisturizing lotion APPLY TO THE AFFECTED AREA(S) TWICE DAILY 237 mL 1 5 Active Active Problems Problem Noted Date Diagnosed Date Menorrhagia with regular cycle 07/28/2024 Assessment & Plan (07/28/2024 4:04 PM EDT): Will refer to ob-ceo ziff davis, she is also complaining of episodes of hot flashes Allergy 07/23/2023 Assessment & Plan (07/23/2023 8:51 AM EST): Patient refers ever since being exposed to a new plastic material at her job she has been suffering from allergies, told to continue with zyrtec, will refer to head of cytogenetics Iron deficiency 06/14/2022 Assessment & Plan (01/22/2025 2:24 PM EDT): Continue ferrous sulfate, new labs will be ordered for guidance Assessment & Plan (11/12/2024 2:40 PM EDT): Patient not tolerating oral iron replacement, will refer to hematology to consider iv therapy Assessment & Plan (11/03/2024 3:51 PM EDT): [...] therapy Primary hypertension 06/14/2022 Assessment & Plan (01/22/2025 2:23 PM EDT): Controlled, keep low sodium diet and exercise as tolerated, keep bp log, follow up in 3 months Assessment & Plan (11/12/2024 2:39 PM EDT): Uncontrolled, lisinopril was causing headaches and was stopped for the past 4-5 days, will switch to losartan, continue hydrochlorothiazide, follow up in 1 month Assessment & Plan (11/03/2024 3:50 PM EDT): [...] Plan (06/14/2022 2:37 PM EST): Controlled, saw repair cameraman who ordered a abd/pelvic ct scan to r/o renal artery stenosis, will order new labs and follow up in 3 months Encounters Date Type Department Care Team Description 12/30/2024 3:30 PM EDT Telemedicine [facility] [address] [place] [address] Reilly Taylor MD Primary hypertension (Primary Dx); Iron deficiency 12/30/2024 Travel 12/09/2024 Refill [facility] [address] [place] [address] Reilly Taylor MD 11/12/2024 2:15 PM EDT Telemedicine [facility] [address] [place] [address] Reilly Taylor MD Primary hypertension (Primary Dx); Iron deficiency 11/12/2024 Travel 11/11/2024 Telephone [facility] [address] [place] [address] Reilly Taylor MD chart prep 11/03/2024 3:30 PM EDT Telemedicine [facility] [address] [place] [address] Reilly Taylor MD Iron deficiency (Primary Dx); Primary hypertension 10/31/2024 Telephone [facility] [address] [place] [address] Reilly Taylor MD Chart Prep from Last 3 Months Immunizations Immunization Administration [...] Sign Reading Time Taken Comments Blood Pressure 118/67 12/30/2024 3:21 PM EDT Pulse 82 12/30/2024 3:21 PM EDT Temperature 36.6 C (97.8 F) 06/30/2024 3:05 PM EST Respiratory Rate 20 06/30/2024 3:05 PM EST Oxygen Saturation - - Inhaled Oxygen Concentration - - Weight 107 kg (236 lb) 06/30/2024 3:05 PM EST Height 162.6 cm (5' 4 ) 06/30/2024 3:05 PM EST Body Mass Index 40.51 06/30/2024 3:05 PM EST Plan of Treatment Health Maintenance Due Date Last Done Comments Family Planning (PISQ) 2008 HPV Vaccines (3 - 3-dose series) 09/24/2019 04/29/2019, 03/26/2019 COVID-19 Vaccine ( season) 2025 05/27/2021, 11/19/2020, 10/29/2020 Influenza Vaccine (#1) 2025 9, 06/18/2018, 05/22/2017, Additional history exists DTaP/Tdap/Td Vaccines (2 - Td or Tdap) 09/29/2025 09/30/2015 Depression Screening 11/03/2025 11/03/2024, 09/01/19 23 Disability Screening 11/03/2025 11/03/2024 SDOH Screening 11/03/2025 11/03/2024 Tobacco Screening 11/03/2025 11/03/2024 Alcohol/Substance Use Screening 11/12/2025 11/12/2024 Cervical Cancer Screening 10/03/2027 HPV/Cotest 10/03/2027 10/02/2024 [...] IRON AND TOTAL IRON BINDING CAPACITY Routine 11/07/2024 8:30 AM EDT Iron deficiency CBC WITH AUTO DIFFERENTIAL Routine 11/07/2024 8:30 AM EDT Iron deficiency HPV DNA, LOW/HIGH RISK Routine 10/02/2024 1:06 PM EDT PAP SMEAR Routine 10/02/2024 1:06 PM EDT LIPID PANEL, STANDARD Routine 07/04/2024 6:55 AM EST Primary hypertension HEPATITIS C AB W/REFL TO HCV RNA, QN, PCR Routine 07/06/2022 9:05 AM EST Primary hypertension HIV 1 RNA, QN PCR W/RFL MAKENZIE (RTI,PI,INTEGRASE) Routine 07/06/2022 9:05 AM EST Primary hypertension from Last 3 Months or Most Recently Relevant to Health Maintenance Results * (ABNORMAL) CBC auto differential (11/07/2024 8:30 AM EDT) White Blood Count 7.5 4.8 - 10.8 X10*3/uL [facility] Red Blood Count 4.67 4.20 - 5.50 X10*6/uL [facility] Hemoglobin 11.0(L) 12.0 - 16.0 g/dl [facility] Hematocrit 34.7(L) 37.0 - 47.0 % [facility] Mean Corpuscular Volume 74.3(L) 80.0 - 98.0 fL [facility] Mean Corpuscular Hemoglobin 23.6(L) 27.0 - 33.0 pg [facility] Mean Corpuscular HGB Conc 31.7 31.0 - 35.0 g/dl [facility] Red Cell Distribution Width 14.6 11.0 - 16.0 % [facility] Platelet Count 298 160 - 400 X10*3/uL [facility] Mean Platelet Volume 10.2 9.4 - 12.3 fL [facility] Neutrophils Percent Auto 63.8 45 - 73 % [facility] Imm Gran Pct Auto 0.7(H) 0.0 - 0.4 % [facility] Lymphocytes Percent Auto 27.1 20 - 40 % [facility] Monocytes Percent Auto 6.1 2 - 11 % [facility] Eosinophils Percent Auto 1.9 0 - 4 % [facility] Basophils Percent Auto 0.4 0 - 2 % [facility] NRBC Pct Auto 0.0 0.0 - 0.2 /100WBC [facility] Neutrophils Absolute Auto 4.8 2.0 - 8.3 x10*3/uL [facility] Imm Gran Abs Auto 0.05(H) 0.00 - 0.03 X10*3/uL [facility] Lymphocytes Absolute Auto 2.0 1.2 - 4.9 X10*3/uL [facility] Monocytes Absolute Auto 0.5 0.1 - 1.2 X10*3/uL [facility] Eosinophils Absolute Auto 0.1 0.0 - 0.4 X10*3/uL [facility] Basophils Absolute Auto 0.0 0.0 - 0.2 X10*3/uL [facility] NRBC Abs Auto 0.000 0.0 - 0.012 X10*3/uL [facility] Blood Venous blood specimen / Unknown 11/07/2024 8:30 AM EDT 11/07/2024 2:27 PM EDT Reilly Mccoy MD LAB BLOOD ORDERABL ES Final Result Performing Organization Address [facility]/ZIP Co de Phone Number [facility] [address] [place] [phone] * (ABNORMAL) Iron And Total Iron Binding Capacity (11/07/2024 8:30 AM EDT) Iron 23(L) 30 - 160 mcg/dL [facility] Total Iron Binding Capacity 295 228 - 428 mcg/dL [facility] Percent Iron Saturation 8(L) 15 - 50 % [facility] Unsaturated Iron Binding 272 ug/dL [facility] Blood Venous blood specimen / Unknown 11/07/2024 8:30 AM EDT 11/07/2024 2:27 PM EDT Reilly Mccoy MD LAB BLOOD ORDERABL ES Final Result Performing Organization Address [facility] Co de Phone Number [facility] [address] [place] [phone] * HPV DNA, Low/High Risk (10/02/2024 1:06 PM EDT) HPV High Risk Negative Negative [facility] HPV Genotype 16 Negative Negative [facility] HPV Genotype 18 Negative Negative [facility] Comment:HPV testing performe d at [facility] (CLIA#[id number]), [address] [place] [address].Testing for HPV was performed using the Najma [...] 1:06 PM EDT 10/03/2024 9:40 AM EDT us Generic External Data Provider LAB BLOOD ORDERAB LES Final Result [facility] [address] [place] [phone] * Pap Smear (10/02/2024 1:06 PM EDT) 10/02/2024 1:06 PM EDT 10/03/2024 9:40 AM EDT Narrative [facility] - 10/09/2024 10:13 AM EDT ----- ------- Name: Hernandez Anne Mackay Age/Sex: 29/F : 1995 Unit#: [id number] Attend Dr: Angeles Vera [facility] Re10/02/24 Status: DEP REF Location: HO.LNP Disch: ----- ------- SPEC : [id number] RECD: 10/03/24 STATUS: NAE FROST NUM: [id number] NATE: 10/02/24-[address]: Angeles Vera CNM ENTERED: 10/03/24 SP TYPE: Pap Smr OTHR DR: Reilly [...] Received ThinPrep-Cervical Copies To: Reilly Taylor MD [address] [address] Angeles Vera CNM [facility] [address] [facility], 3rd [place] [address] ----- ------- Signed (signature on file) MADISYN Landis (ASCP) 10/09/24 1013 ----- ------- END OF REPORT us Generic External Data Provider LAB CYTOLOGY LEONEL PEARSON Final Result [facility] [address] [place], [place] [phone] * (ABNORMAL) Lipid Panel, Standard (07/04/2024 6:55 AM EST) Triglycerides 134 <150 mg/dL [facility] Comment:Desirable Triglyceri de: less than 150 mg/dLBorderline High Triglyceride 150-199 mg/dLHigh Triglyceride: 200-499 mg/dLVery High Triglyceride: greater than or equal to 5OO mg/dL Cholesterol 164 <200 mg/dL [facility] Comment:Desirable Cholestero l: less than 200 mg/dLBorderline High Cholesterol: 200-239 mg/dLHigh Cholesterol: greater than 239 mg/dL LDL Cholesterol Calculated 104(H) <100 mg/dL [facility] Comment:Desirable LDL: less than 100 mg/dLNear Optimal/Above Optimal LDL: 110- 129 mg/dLBorderline High LDL: 130-159 mg/dLHigh LDL: 160-189 mg/dLVery High LDL: greater than or equal to 190 mg/dL HDL Cholesterol 34(L) >40 mg/dL [facility] Comment:Desirable HDL: great er than 40 mg/dL Note: This HDL assay may give artificially low results in patients with liver disease. Blood Venous blood specimen / Unknown 07/04/2024 6:55 AM EST 07/04/2024 6:55 AM EST us Reilly Mccoy MD LAB BLOOD ORDERABL ES Final Result [facility] [address] [place] [phone] * HIV-1 RNA, Quantitative, Real-Time PCR with Reflex to Genotype (RTI, PI, Integrase) (07/06/2022 9:05 AM EST) HIV 1 RNA, QN PCR NOT DETECTED copies/mL [facility], HIV 1 RNA, QN PCR NOT DETECTED Log copies/mL [facility], Comment: REFERENCE RANGE: NOT DETECTED copies/mL NOT DETECTED Log copies/mL This test was performed using Real-Time Polymerase Chain Reaction. Reportable range is 20 to 10,000,000 copies/mL (1.30-7.00 Log copies/mL). 07/06/2022 9:05 AM EST 07/06/2022 9:06 AM EST Narrative [facility] - 07/13/2022 8:24 PM EST FASTING:YES FASTING: YES Reilly Mccoy MD LAB BLOOD ORDERABL ES Final Result Performing Organization Address [facility] Co de Phone Number [facility] [address] [place] [address], [place] [phone] [facility], [address] [place] [phone] * Hepatitis C Antibody with Reflex to HCV, RNA, Quantitative, Real-Time PCR (07/06/2022 9:05 AM EST) Hepatitis C Antibody NON-REACT CADY NON-REACT CADY [facility] Index 0.03 <1.00 [facility] Comment: HCV antibody was non-reactive. There is no laboratory evidence of HCV infection. In most cases, no further action is required. However, if recent HCV exposure is suspected, a test for HCV RNA (test code 55627) is suggested. For additional information please refer to http://education.MMRGlobal/faq/HBD20v8 (This link is being provided for informational/ educational purposes only.) Blood Venous blood specimen / Unknown 07/06/2022 9:05 AM EST 07/06/2022 9:06 AM EST Narrative [facility] - 07/13/2022 8:24 PM EST FASTING:YES FASTING: YES Reilly Mccoy MD LAB BLOOD ORDERABL ES Final Result Performing Organization Address [facility]/ZIP Co de Phone Number [facility] [address] [place] [address], [place] [phone] [facility] [place] [facility] [address] [place] [address], ([address]) [place] [phone] from Last 3 Months or Most Recently Relevant to Health Maintenance Insurance [facility] 3 Care Teams Real Estate Sales Associate Relationship Specialty Start Date End Date Reilly Taylor MD [address] [place] [phone] PCP - General Internal Medicine 10/14/19
[2025-01-22 17:55] LABS: MANUAL DIFF FLAG NO
[2025-01-22 18:13] LABS: Hematocrit 34.9 % (37.0-47.0); Hemoglobin 11.0 g/dl (12.0-16.0); Imm Gran Abs Auto 0.03 X10*3/uL (0.00-0.03); Imm Gran Pct Auto 0.3 % (0.0-0.4); Lymphocytes Absolute Auto 2.6 X10*3/uL (1.2-4.9); Mean Corpuscular HGB Conc 31.5 g/dl (31.0-35.0); Mean Corpuscular Hemoglobin 21.7 pg (27.0-33.0); Mean Corpuscular Volume 69.0 fL (80.0-98.0); NRBC Abs Auto 0.000 X10*3/uL (0.0-0.012); NRBC Pct Auto 0.0 /100WBC (0.0-0.2); Platelet Count 325 X10*3/uL (160-400); Red Blood Count 5.06 X10*6/uL (4.20-5.50); White Blood Count 9.7 X10*3/uL (4.8-10.8)
[2025-01-22 18:29] LABS: Iron 45 mcg/dL (30-160); Percent Iron Saturation 15 % (15-50); Total Iron Binding Capacity 308 mcg/dL (228-428); Unsaturated Iron Binding 263 ug/dL
== END 2025-01-22 15:26 | disposition home or self-care (01) ==
LOC: HO.CHCLDS 15:25
PROVIDERS: Visit Provider Internal Medicine
DX: E61.1 Iron deficiency (principal)
CPT/HCPCS: 36415; 83540; 85025

== ENCOUNTER 2025-02-04 15:02 | Outpatient (REF) | payer OTHER, SELFPAY ==
--- NOTE | ~2025-02-04 | US_ITS ---
EXAMINATION: US PELVIS TRANSABDOMINAL AND TRANSVAGINAL HISTORY: N83.209 - Unspecified ovarian cyst, unspecified side COMPARISON: Comparison is made with the prior examination dated 09/19/2024. TECHNIQUE: Transabdominal and endovaginal real-time 2D london-scale ultrasound was performed. FINDINGS: Uterus: The uterus is normal in size, measuring 7.7 x 4.4 x 6.0 cm. Myometrium has a normal echotexture. No fibroids are identified. Endometrium: The endometrial stripe measures 3 mm in thickness. An IUD is noted which is positioned abnormally low in the cervix. Right ovary: The right ovary measures 4.1 x 1.9 x 1.6 cm. The right ovary is normal in size and echotexture. There is a 1.7 x 1.2 x 1.1 cm cyst (previously 1.4 x 2.3 x 2.0 cm). Left ovary: The left ovary measures 2.6 x 2.1 x 1.8 cm. The left ovary is normal in size and echotexture. Pelvic fluid: none. US/US pelvic and transvaginal IMPRESSION: 1. IUD, positioned abnormally low in the cervix. 2. Interval decrease in size of the previously noted right ovarian cyst. Electronically signed by: Pablito Toure MD 02/04/2025 03:36 PM EDT
--- OUTSIDE RECORDS SUMMARY | 2025-02-04 18:33 | XMS_ITS | Clinical Summary ---
Author Organization [facility] Address [address] [place] [address] Care Team Providers Care Instructional Media Services Technician Name Role Phone Reilly Ocasio MD Primary Care Provider [phone] Allergies No known active allergies Medications Medication [...] age to complete this topic Care Teams Instructional Media Services Technician Relationship Specialty Start Date End Date Reilly Ocasio MD [address] [place] [phone] PCP - General Internal Medicine 07/27/21
--- OUTSIDE RECORDS SUMMARY | 2025-02-04 18:33 | XMS_ITS | Encounter Summary ---
Author Organization [employer] Address [address] [place] [address] Care Team Providers Care Timber Selector Name Role Phone Reilly Taylor MD Primary Care Prov ider Reason for Visit * Reason Onset Date Comments Med Refill 08/29/2023 Encounter Details Date Type Department Care Team ([facility] st Contact Info) Description 08/29/2023 Refill [facility] [address] [place] [address] Reilly Taylor MD [address] [place] [address] Social History Tobacco Use Types Packs/Day Years [...] documented as of this encounter Care Teams Timber Selector Relationship Specialty Start Date End Date Reilly Taylor MD [address] [place] [phone] PCP - General Internal Medicine 10/14/19 documented as of this encounter
--- OUTSIDE RECORDS SUMMARY | 2025-02-04 18:33 | XMS_ITS | Encounter Summary ---
Author Organization [employer] Address [address] [facility] 7t [place] [address] Care Team Providers Care Supervisor [employer]ar [employer] Name Role Phone Reilly Taylor MD Primary Care Prov ider Encounter Details Date Type Department Care Team (Late st Contact Info) Description 02/04/2025 Orders Only [facility] External Provider, [facility] Social History Tobacco Use Types Packs/Day Years [...] on file documented as of this encounter Procedures Procedure Name Priority Date/Time Associated Diagnosis Comments US PELVIS TRANSVAGINAL Routine 02/04/2025 3:06 PM EDT documented in this encounter Results * US Pelvis Transvaginal (02/04/2025 3:06 PM EDT) Anatomical Region Laterality Modality Pelvis Ultrasound 02/04/2025 3:06 PM EDT Narrative 02/04/2025 3:38 PM EDT [facility] Adult Primary Care [address] [place] [address] [place] [address] Ultrasound Report Signed Patient: Anne Nieves MR#: [id number] : 1995 Acct:[id number] Age/Sex: 29 / F ADM Date: 02/04/25 Loc: HO.HMGCX Attending Dr: Angeles Vera CNM Ordering Physician: Angeles Vera CNM Date of Service: 02/04/25 Procedure(s): US pelvic and transvaginal Accession Number(s): [id number] cc: Reilly Taylor MD; Angeles Vera CNM Reason for Exam: N83.209 - Unspecified ovarian cyst, unspecified side EXAMINATION: US PELVIS TRANSABDOMINAL AND TRANSVAGINAL HISTORY: N83.209 - Unspecified ovarian cyst, unspecified side COMPARISON: Comparison is made with the prior examination dated 09/19/2024. TECHNIQUE: Transabdominal and endovaginal real-time 2D london-scale ultrasound was performed. FINDINGS: Uterus: The uterus is normal in size, measuring 7.7 x 4.4 x 6.0 cm. Myometrium has a normal echotexture. No fibroids are identified. Endometrium: The endometrial stripe measures 3 mm in thickness. An IUD is noted which is positioned abnormally low in the cervix. Right ovary: The right ovary measures 4.1 x 1.9 x 1.6 cm. The right ovary is normal in size and echotexture. There is a 1.7 x 1.2 x 1.1 cm cyst (previously 1.4 x 2.3 x 2.0 cm). Left ovary: The left ovary measures 2.6 x 2.1 x 1.8 cm. The left ovary is normal in size and echotexture. Pelvic fluid: none. US/US pelvic and transvaginal IMPRESSION: 1. IUD, positioned abnormally low in the cervix. 2. Interval decrease in size of the previously noted right ovarian cyst. Electronically signed by: Pablito Toure MD 02/04/2025 03:36 PM EDT Dictated By: Pablito Toure MD Signed By: <Electronically signed by Pablito Toure MD in OV> 02/04/25 1536 DD/ 1506 TD/TT: 02/04/25 1521 Plastics Factory Worker: Procedure Note Donotuseinterpreter, Image - 02/04/2025 [facility] Adult Primary Care [facility] [place] [address] Ultrasound Report Signed Patient: Anne Nieves#: [id number] : 1995Acct:[id number] Age/Sex: 29 FADM Date: 02/04/25 Loc: HO.HMGCX Attending Dr: Angeles Vera CNM Ordering Physician: Angeles Vera CNM Date of Service: 02/04/25 Procedure(s): US pelvic and transvaginal Accession Number(s): [id number] cc: Reilly Taylor MD; Angeles Vera CNM Reason for Exam: N83.209 - Unspecified ovarian cyst, unspecified side EXAMINATION: US PELVIS TRANSABDOMINAL AND TRANSVAGINAL HISTORY: N83.209 - Unspecified ovarian cyst, unspecified side COMPARISON: Comparison is made with the prior examination dated 09/19/2024. TECHNIQUE: Transabdominal and endovaginal real-time 2D london-scale ultrasound was performed. FINDINGS: Uterus: The uterus is normal in size, measuring 7.7 x 4.4 x 6.0 cm. Myometrium has a normal echotexture. No fibroids are identified. Endometrium: The endometrial stripe measures 3 mm in thickness. An IUD is noted which is positioned abnormally low in the cervix. Right ovary: The right ovary measures 4.1 x 1.9 x 1.6 cm. The right ovary is normal in size and echotexture. There is a 1.7 x 1.2 x 1.1 cm cyst (previously 1.4 x 2.3 x 2.0 cm). Left ovary: The left ovary measures 2.6 x 2.1 x 1.8 cm. The left ovary is normal in size and echotexture. Pelvic fluid: none. US/US pelvic and transvaginal IMPRESSION: 1. IUD, positioned abnormally low in the cervix. 2. Interval decrease in size of the previously noted right ovarian cyst. Electronically signed by: Pablito Toure MD 02/04/2025 03:36 PM EDT Dictated By: Pablito Toure MD Signed By: <Electronically signed by Pablito Toure MD in OV> 02/04/25 1536 DD/ 1506 TD/TT: 02/04/25 1521 Plastics Factory Worker: [facility] External Provider IMG US PROCEDURES Edited Result - Final documented in this encounter Visit Diagnoses Not on filedocumented in this encounter Additional Health Concerns Assessment Noted Time PHQ-9 Depression Total Score: 1 09/01/19 23 2:22 PM EDT documented as of this encounter Care Teams Supervisor [employer]ar [employer] Relationship Specialty Start Date End Date OcasioReilly Grijalva MD [address] [place] [phone] PCP - General Internal Medicine 10/14/19 documented as of this encounter
--- OUTSIDE RECORDS SUMMARY | 2025-02-04 18:33 | XMS_ITS | Clinical Summary ---
Author Organization [employer] Address [address] [facility] 7[address] [place] [address] Care Team Providers Care Casting Inspector Name Role Phone Reilly Taylor MD [...] (07/28/2024 4:04 PM EDT): Will refer to ob-tunnel drier operator, she is also complaining of episodes of hot flashes Allergy 07/23/2023 Assessment & Plan (07/23/2023 8:51 AM EST): Patient refers ever since being exposed to a new plastic material at her job she has been suffering from allergies, told to continue with zyrtec, will refer to pcat instructor Iron deficiency 06/14/2022 Assessment & Plan (01/22/2025 [...] Plan (06/14/2022 2:37 PM EST): Controlled, saw glassware verifier who ordered a abd/pelvic ct scan to r/o renal artery stenosis, will order new labs and follow up in 3 months Encounters Date Type Department Care Team Description 02/04/2025 Orders Only [facility] External Provider, [facility] 12/30/2024 3:30 PM EDT Telemedicine [facility] [address] [place] [address] Reilly Taylor MD Primary hypertension (Primary Dx); Iron deficiency 12/30/2024 Travel 12/09/2024 Refill [facility] [address] [place] [address] Reilly Taylor MD 11/12/2024 2:15 PM EDT Telemedicine [facility] [address] [place] [address] Reilly Taylor MD Primary hypertension (Primary Dx); Iron deficiency 11/12/2024 Travel 11/11/2024 Telephone [facility] [address] [place] [address] Reilly Taylor MD chart prep from Last [...] PELVIS TRANSVAGINAL Routine 02/04/2025 3:06 PM EDT IRON AND TOTAL IRON BINDING CAPACITY Routine 01/22/2025 3:27 PM EDT Iron deficiency CBC WITH AUTO DIFFERENTIAL Routine 01/22/2025 3:27 PM EDT Iron deficiency IRON AND TOTAL IRON BINDING CAPACITY Routine [...] Health Maintenance Results * US Pelvis Transvaginal (02/04/2025 3:06 PM EDT) Anatomical Region Laterality Modality Pelvis Ultrasound 02/04/2025 3:06 PM EDT Narrative 02/04/2025 3:38 PM EDT [facility] Adult Primary Care [address] [place] [address] [place] [address] Ultrasound Report Signed Patient: Anne Nieves MR#: [id number] : 1995 Acct:[id number] Age/Sex: 29 / F ADM Date: 02/04/25 Loc: HO.HMGCX Attending Dr: Angeles Vera CNM Ordering Physician: Angeles Vera CNM Date of Service: 02/04/25 Procedure(s): US pelvic and transvaginal Accession Number(s): [id number] cc: Reilly Taylor MD; Angeles Vera CNM [...] Pablito Toure MD 02/04/2025 03:36 PM EDT RP Dictated By: Pablito Toure MD Signed By: <Electronically signed by Pablito Toure MD in OV> 02/04/25 1536 DD/ 1506 TD/TT: 02/04/25 1521 Ventilation Worker: Procedure Note Donotuseinterpreter, Image - 02/04/2025 [facility] Care [address] [place] [address] [place] [address] Ultrasound Report Signed Patient: Anne Nieves#: [id number] : 1995Acct:[id number] Age/Sex: 29 FADM Date: 02/04/25 Loc: HO.HMGCX Attending Dr: Angeles Vera CNM Ordering Physician: Angeles Vera CNM Date of Service: 02/04/25 Procedure(s): US pelvic and transvaginal Accession Number(s): [id number] cc: Reilly Taylor MD; Angeles Vera CNM [...] MD Signed By: <Electronically signed by Pablito oTure MD in OV> 02/04/25 1536 DD/ 1506 TD/TT: 02/04/25 1521 Ventilation Worker: [facility] External Provider IMG US PROCEDURES Edited Result - Final * (ABNORMAL) CBC auto differential (01/22/2025 3:27 PM EDT) Only the most recent of2 resultswithin the time period is included. White Blood Count 9.7 4.8 - 10.8 X10*3/uL [facility] Red Blood Count 5.06 4.20 - 5.50 X10*6/uL [facility] Hemoglobin 11.0(L) 12.0 - 16.0 g/dl [facility] Hematocrit 34.9(L) 37.0 - 47.0 % [facility] Mean Corpuscular Volume 69.0(L) 80.0 - 98.0 fL [facility] Mean Corpuscular Hemoglobin 21.7(L) 27.0 - 33.0 pg [facility] Mean Corpuscular HGB Conc 31.5 31.0 - 35.0 g/dl [facility] Red Cell Distribution Width 17.6(H) 11.0 - 16.0 % [facility] Platelet Count 325 160 - 400 X10*3/uL [facility] Mean Platelet Volume 11.1 9.4 - 12.3 fL [facility] Neutrophils Percent Auto 65.0 45 - 73 % [facility] Imm Gran Pct Auto 0.3 0.0 - 0.4 % [facility] Lymphocytes Percent Auto 26.4 20 - 40 % [facility] Monocytes Percent Auto 6.6 2 - 11 % [facility] Eosinophils Percent Auto 1.3 0 - 4 % [facility] Basophils Percent Auto 0.4 0 - 2 % [facility] NRBC Pct Auto 0.0 0.0 - 0.2 /100WBC [facility] Neutrophils Absolute Auto 6.3 2.0 - 8.3 x10*3/uL [facility] Imm Gran Abs Auto 0.03 0.00 - 0.03 X10*3/uL [facility] Lymphocytes Absolute Auto 2.6 1.2 - 4.9 X10*3/uL [facility] Monocytes Absolute Auto 0.6 0.1 - 1.2 X10*3/uL [facility] Eosinophils Absolute Auto 0.1 0.0 - 0.4 X10*3/uL [facility] Basophils Absolute Auto 0.0 0.0 - 0.2 X10*3/uL [facility] NRBC Abs Auto 0.000 0.0 - 0.012 X10*3/uL [facility] Blood Venous blood specimen / Unknown 01/22/2025 3:27 PM EDT 01/22/2025 5:52 PM EDT us Reilly Mccoy MD LAB BLOOD ORDERABL ES Final Result [facility] [address] [place] [address] [phone] * Iron And Total Iron Binding Capacity (01/22/2025 3:27 PM EDT) Only the most recent of2 resultswithin the time period is included. Iron 45 30 - 160 mcg/dL [facility] Total Iron Binding Capacity 308 228 - 428 mcg/dL [facility] Percent Iron Saturation 15 15 - 50 % [facility] Unsaturated Iron Binding 263 ug/dL [facility] Blood Venous blood specimen / Unknown 01/22/2025 3:27 PM EDT 01/22/2025 5:52 PM EDT us Reilly Mccoy MD LAB BLOOD ORDERABL ES Final Result Performing Organization Address [facility] Co de Phone Number [facility] [address] [place] [phone] * HPV DNA, Low/High Risk (10/02/2024 1:06 PM EDT) HPV High Risk Negative Negative [facility] HPV Genotype 16 Negative Negative [facility] HPV Genotype 18 Negative Negative [facility] Comment:HPV testing performe d at [facility] (CLIA#[id number]), [address] [place] [address].Testing for HPV was performed using the Najma [...] ORDERAB LES Final Result Performing Organization Address [facility]/ZIP Co de Phone Number [facility] [address] [place] [phone] * Pap Smear (10/02/2024 1:06 PM EDT) 10/02/2024 1:06 PM EDT 10/03/2024 9:40 AM EDT [facility] - 10/09/2024 10:13 AM EDT ----- ------- Name: Mary MackayAnne Age/Sex: 29/F : 1995 Unit#: [id number] Attend Dr: Angeles Vera CNM Re10/02/24 Status: DEP REF Location: [facility] Disch: ----- ------- SPEC : [id number] RECD: 10/03/24 STATUS: NAE FROST NUM: [id number] NATE: 10/02/24-13[address] [facility] [address]: Angeles Vera CNM ENTERED: 10/03/24-1049 SP TYPE: Pap Smr OTHR DR: Reilly [...] Received ThinPrep-Cervical Copies To: Reilly Taylor MD [address] [facility] Women[facility] Services [address] [place] [address], 3rd [place] [address] ----- ------- Signed (signature on file) MADISYN Landis ([facility]) 10/09/24 1013 ----- ------- END OF REPORT us Generic External Data Provider LAB CYTOLOGY ORDE RABRAJAT Final Result [facility] [address] [place], [place] [phone] * (ABNORMAL) Lipid Panel, Standard (07/04/2024 6:55 AM EST) Triglycerides 134 <150 mg/dL [facility] Comment:Desirable Triglyceri de: less than 150 mg/dLBorderline High Triglyceride 150-199 mg/dLHigh Triglyceride: 200-499 mg/dLVery High Triglyceride: greater than or equal to 5OO mg/dL Cholesterol 164 <200 mg/dL [facility] Comment:Desirable Cholestero l: less than 200 mg/dLBorderline High Cholesterol: 200-239 mg/dLHigh Cholesterol: greater than 239 mg/dL LDL Cholesterol Calculated 104(H) <100 mg/dL [facility] Comment:Desirable LDL: less than 100 mg/dLNear Optimal/Above Optimal LDL: 110- 129 mg/dLBorderline High LDL: 130-159 mg/dLHigh LDL: 160-189 mg/dLVery High LDL: greater than or equal to 190 mg/dL HDL Cholesterol 34(L) >40 mg/dL [facility] Comment:Desirable HDL: great er than 40 mg/dL Note: This HDL assay may give artificially low results in patients with liver disease. Blood Venous blood specimen / Unknown 07/04/2024 6:55 AM EST 07/04/2024 6:55 AM EST Reilly Mccoy MD LAB BLOOD ORDERABL ES Final Result [facility] [address] [place] [phone] [phone] * HIV-1 RNA, Quantitative, Real-Time PCR with Reflex to Genotype (RTI, PI, Integrase) (07/06/2022 9:05 AM EST) HIV 1 RNA, QN PCR NOT DETECTED copies/mL [facility] [employer] [facility], HIV 1 RNA, QN PCR NOT DETECTED Log copies/mL [facility] [employer] [facility], Comment: REFERENCE RANGE: NOT DETECTED copies/mL NOT DETECTED Log copies/mL This test was performed using Real-Time Polymerase Chain Reaction. Reportable range is 20 to 10,000,000 copies/mL (1.30-7.00 Log copies/mL). 07/06/2022 9:05 AM EST 07/06/2022 9:06 AM EST Narrative [facility] - 07/13/2022 8:24 PM EST FASTING:YES FASTING: YES Reilly Mccoy MD LAB BLOOD ORDERABL ES Final Result Performing Organization Address City/[facility]/ZIP Co de Phone Number [facility] [address], [place] [phone] [facility], [address] [place] [address] * Hepatitis C Antibody with Reflex to HCV, RNA, Quantitative, Real-Time PCR (07/06/2022 9:05 AM EST) Hepatitis C Antibody NON-REACT CADY NON-REACT CADY [employer] [place] [employer] Index 0.03 <1.00 [employer] Comment: HCV antibody was non-reactive. There is no laboratory evidence of HCV infection. In most cases, no further action is required. However, if recent HCV exposure is suspected, a test for HCV RNA (test code 46031) is suggested. For additional information please refer to http://education.Kixer/faq/PHZ44y6 (This link is being provided for informational/ educational purposes only.) Blood Venous blood specimen / Unknown 07/06/2022 9:05 AM EST 07/06/2022 9:06 AM EST Narrative [facility] - 07/13/2022 8:24 PM EST FASTING:YES FASTING: YES Reilly Mccoy MD LAB BLOOD ORDERABL ES Final Result [facility] [address] [facility], [place] [address] [employer] [place] [employer] [address] [facility], ([address]) [place] [address] from Last 3 Months or Most Recently Relevant to Health Maintenance Insurance [facility] 3 Care Teams Casting Inspector Relationship Specialty Start Date End Date Reilly Taylor MD [address] [place] [phone] PCP - General Internal Medicine 10/14/19
--- OUTSIDE RECORDS SUMMARY | 2025-02-04 18:33 | XMS_ITS | Encounter Summary ---
Author Organization [employer] Address [address] [place] [address] Care Team Providers Care Machine Stamper Name Role Phone Reilly Taylor MD Primary Care Prov ider Reason for Visit * Reason Onset Date Comments Med Refill 12/13/2022 Encounter Details Date Type Department Care Team (Late st Contact Info) Description 12/13/2022 Refill [facility] [address] [place], [place] [phone] Reilly Taylor MD [address] [place], [place] [phone] Primary hypertension Social History Tobacco Use Types [...] documented as of this encounter Care Teams Machine Stamper Relationship Specialty Start Date End Date Reilly Taylor MD [address] [place] [address] PCP - General Internal Medicine 10/14/19 documented as of this encounter
--- OUTSIDE RECORDS SUMMARY | 2025-02-04 18:33 | XMS_ITS | Encounter Summary ---
Author Organization [employer] Address [address] [place] [address] Care Team Providers Care Liquid Floor And Wall Applier Name Role Phone Reilly Taylor MD Primary Care Prov ider Reason for Visit * Reason Onset Date Comments Referral 08/21/2024 Encounter Details Date Type Department Care Team (Late st Contact Info) Description 08/21/[address] [facility] [address] [place] [address] Reilly Taylor MD [address] [place] [address] Referral Social History Tobacco Use Types Packs/Day [...] a referral for hematology. Contact pt at [phone] documented in this encounter Plan of Treatment Not on file documented as of this encounter Visit Diagnoses Not on filedocumented in this encounter Additional Health Concerns Assessment Noted Time PHQ-9 Depression Total Score: 1 09/01/19 23 2:22 PM EDT documented as of this encounter Care Teams Liquid Floor And Wall Applier Relationship Specialty Start Date End Date Reilly Taylor MD [address] [place] [phone] PCP - General Internal Medicine 10/14/19 documented as of this encounter
== END 2025-02-04 15:03 | disposition home or self-care (01) ==
LOC: HO.HMGCX 15:02
PROVIDERS: PCP Internal Medicine; Visit Provider Advanced Practice Midwife
DX: N83.201 Unspecified ovarian cyst, right side (principal); N92.1 Excessive and frequent menstruation with irregular cycle; I10 Essential (primary) hypertension
CPT/HCPCS: 76830; 76856

== ENCOUNTER → 2025-02-04 15:03 | Outpatient (BNV) | payer OTHER, SELFPAY | PROVIDERS: PCP Internal Medicine; Visit Provider Radiology Diagnostic Radiology | DX: N83.201 Unspecified ovarian cyst, right side (principal) | CPT/HCPCS: 76830; 76856 ==

== ENCOUNTER 2025-02-18 09:56 | Outpatient (AMB) | payer OTHER, SELFPAY ==
--- NOTE | 2025-02-18 09:56 | MHC.OFFVIS ---
Intake Visit Reasons: TV consult on IUD Allergies No Known Allergies Allergy (Verified 02/18/25 09:57) Medication List - Last Reconciled 02/18/25 by Angeles Vera CNM cetirizine 10 mg PO DAILY ferrous sulfate 325 mg PO QAM hydrochlorothiazide 25 mg PO DAILY losartan 100 mg PO DAILY Is last menstrual period known: Yes Last menstrual period: 02/10/25 HPI HPI TV consult on IUD: Details: This is a tele visit to discuss patient's ultrasound done 02/04/2025 which shows the IUD placed low in her cervix it was placed in September. 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 Female Reproductive History Menstrual Date of last menstrual period: 02/10/25 control method: progestin IUCD (mirena) Total pregnancies: 0 Telehealth Telehealth Telehealth Platform: Telephone Location of provider rendering services: practice address Location of patient: address on file Patient Identification confirmed using: Name, : Yes Telehealth method: voice only Patient verbally consented to treatment: Yes Patient verbally consented to billing insurance company: Yes Patient informed of any privacy concerns related to visit: Yes Minutes spent on Phone/Video with Pt.: 15 (Fifteen speaking with patient to chart review 8 charting=25) Results Reviewed Results Reviewed: Patient: Anne Nieves MR#: [id number] : 1995 Acct:[id number] Age/Sex: 29 / F ADM Date: 02/04/25 Loc: HO.HMGCX Attending Dr: Angeles Vera CNM Ordering Physician: Angeles Vera CNM Date of Service: 02/04/25 Procedure(s): US pelvic and transvaginal Accession Number(s): [id number] cc: Reilly Taylor MD; Angeles Vera CNM~ Reason for Exam: N83.209 - Unspecified ovarian cyst, unspecified side EXAMINATION: US PELVIS TRANSABDOMINAL AND TRANSVAGINAL HISTORY: N83.209 - Unspecified ovarian cyst, unspecified side COMPARISON: Comparison is made with the prior examination dated 09/19/2024. TECHNIQUE: Transabdominal and endovaginal real-time 2D london-scale ultrasound was performed. FINDINGS: Uterus: The uterus is normal in size, measuring 7.7 x 4.4 x 6.0 cm. Myometrium has a normal echotexture. No fibroids are identified. Endometrium: The endometrial stripe measures 3 mm in thickness. An IUD is noted which is positioned abnormally low in the cervix. Right ovary: The right ovary measures 4.1 x 1.9 x 1.6 cm. The right ovary is normal in size and echotexture. There is a 1.7 x 1.2 x 1.1 cm cyst (previously 1.4 x 2.3 x 2.0 cm). Left ovary: The left ovary measures 2.6 x 2.1 x 1.8 cm. The left ovary is normal in size and echotexture. Pelvic fluid: none. US/US pelvic and transvaginal IMPRESSION: 1. IUD, positioned abnormally low in the cervix. 2. Interval decrease in size of the previously noted right ovarian cyst. Electronically signed by: Pablito Toure MD 02/04/2025 03:36 PM EDT RP Dictated By: Pablito Toure MD Signed By: <Electronically signed by Pablito Toure MD in OV> 02/04/25 1536 DD/ 1506 TD/TT: 02/04/25 1521 Book Binder: Assessment & Plan Assessment & Plan (1) Menometrorrhagia: Code(s): N92.1 - Excessive and frequent menstruation with irregular cycle Category: Medical (2) Ovarian cyst: Comment: septated, will recheck 3 months. Was noted to be smaller on 02/04/2025 ultrasound and septations were not noted. Code(s): N83.209 - Unspecified ovarian cyst, unspecified side Category: Medical (3) Presence of 52 mg levonorgestrel-releasing intrauterine device (IUD): Comment: Inserted for menometrorrhagia, after negative EMB, on 10/09/2024.; noted to be low lying in cervix on 02/04/2025 ultrasound discussed with patient will endeavor to replace on 03/11/2025 or as appointed. Code(s): Z97.5 - Presence of (intrauterine) contraceptive device Category: Social Hx Plan I reviewed with the patient the results of the pelvic ultrasound which showed that the IUDs low in her cervix. Her bleeding is overall better since she had the Mirena placed which was placed for heavy bleeding. She is not really having any pain sometimes she gets a little cramp but that is all she is not particularly uncomfortable with it. She is also not sexually active yet. She reports to me that the IUD placement and the endometrial biopsy were not that bad for her. I told her that really what we need to do is remove the IUD and replace it with another 1 there was some discussion about trying to schedule this with her menses but she bleeds somewhat irregularly though not heavy like before so there is still a progestin effect that she has receiving from the Mirena. She has an existing appointment on 1022 in 3 weeks so so we will change that appointment to an IUD replacement visit instead of an IUD check. Because she did not experience significant discomfort with either of the previous procedures I am not going to prescribe misoprostol at this time unless we do have difficulty. It would be ideal to place it while she has her. And she is in fact bleeding now but it may not be possible to schedule given the limited office hours at the moment. Coding Level of Care Code Tele Est Pt Level 3 (40608) Diagnoses Menometrorrhagia N92.1 Ovarian cyst N83.209 Presence of 52 mg levonorgestrel-releasing intrauterine device (IUD) Z97.5 Time Spent (min) 25
--- OUTSIDE RECORDS SUMMARY | 2025-02-18 11:01 | XMS_ITS | Clinical Summary ---
Author Organization [employer] Address [address] [facility] 7[address] [place] [address] Care Team Providers Care Senior Functional Analyst Name Role Phone Reilly Taylor MD Primary [...] (07/28/2024 4:04 PM EDT): Will refer to ob-medical assistant ob gyn, she is also complaining of episodes of hot flashes Allergy 07/23/2023 Assessment & Plan (07/23/2023 8:51 AM EST): Patient refers ever since being exposed to a new plastic material at her job she has been suffering from allergies, told to continue with zyrtec, will refer to photo retoucher Iron deficiency 06/14/2022 Assessment & Plan (01/22/2025 [...] Plan (06/14/2022 2:37 PM EST): Controlled, saw surgical instruments inspector who ordered a abd/pelvic ct scan to r/o renal artery stenosis, will order new labs and follow up in 3 months Encounters Date Type Department Care Team Description 02/04/2025 Orders Only [facility] External Provider, [facility] 12/30/2024 3:30 PM EDT Telemedicine [facility] MED & PEDS [address] [place] [address] Reilly Taylor MD Primary hypertension (Primary Dx); Iron deficiency 12/30/2024 Travel 12/09/2024 Refill [facility] MED & PEDS [address] [place] [address] Reilly Taylor MD from Last 3 Months [...] Routine 01/22/2025 3:27 PM EDT Iron deficiency HPV DNA, LOW/HIGH RISK [...] AT [facility] [place] [address] Ultrasound Report Signed Patient: Anne Nieves MR#: [id number] : 1995 Acct:[id number] Age/Sex: 29 / F ADM Date: 02/04/25 Loc: HO.HMGCX Attending Dr: Angeles Vera CNM Ordering Physician: Angeles Vera CNM Date of Service: 02/04/25 Procedure(s): US pelvic and transvaginal Accession Number(s): [id number] cc: Reilly Taylor MD; Angeles Vera CNM [...] 02/04/25 1536 DD/ 1506 TD/TT: 02/04/25 1521 Cost Accounting Clerk: Procedure Note Donotuseinterpreter, Image - 02/04/2025 [facility] Adult Primary Care [address] [place] [address] [place] [address] Ultrasound Report Signed Patient: Carlotta Nieveslatonya#: [id number] : 1995Acct:[id number] Age/Sex: 29 / FADM Date: 02/04/25 Loc: HO.HMGCX Attending Dr: Angeles Vera CNM Ordering Physician: Angeles Vera CNM Date of Service: 02/04/25 Procedure(s): US pelvic and transvaginal Accession Number(s): [id number] cc: Reilly Taylor MD; Angeles Vera CNM [...] 02/04/25 1536 DD/ 1506 TD/TT: 02/04/25 1521 Cost Accounting Clerk: us [facility] External Provider IMG US PROCEDURES Edited Result - Final * (ABNORMAL) CBC auto differential (01/22/2025 3:27 PM EDT) White Blood Count 9.7 4.8 - 10.8 X10*3/uL [facility] Red Blood Count 5.06 4.20 - 5.50 X10*6/uL [facility] Hemoglobin 11.0(L) 12.0 - 16.0 g/dl [facility] Hematocrit 34.9(L) 37.0 - 47.0 % [facility] Mean Corpuscular Volume 69.0(L) 80.0 - 98.0 fL [facility] Mean Corpuscular Hemoglobin 21.7(L) 27.0 - 33.0 pg [facility] Mean Corpuscular HGB Conc 31.5 31.0 - 35.0 g/dl [facility] Red Cell Distribution Width 17.6(H) 11.0 - 16.0 % [facility] Platelet Count 325 160 - 400 X10*3/uL [facility] Mean Platelet Volume 11.1 9.4 - 12.3 fL [facility] Neutrophils Percent Auto 65.0 45 - 73 % [facility] Imm Gran Pct Auto 0.3 0.0 - 0.4 % [facility] Lymphocytes Percent Auto 26.4 20 - 40 % [facility] Monocytes Percent Auto 6.6 2 - 11 % [facility] Eosinophils Percent Auto 1.3 0 - 4 % [facility] Basophils Percent Auto 0.4 0 - 2 % [facility] NRBC Pct Auto 0.0 0.0 - 0.2 /100WBC [facility] Neutrophils Absolute Auto 6.3 2.0 - 8.3 x10*3/uL [facility] Imm Gran Abs Auto 0.03 0.00 - 0.03 X10*3/uL [facility] Lymphocytes Absolute Auto 2.6 1.2 - 4.9 X10*3/uL [facility] Monocytes Absolute Auto 0.6 0.1 - 1.2 X10*3/uL [facility] Eosinophils Absolute Auto 0.1 0.0 - 0.4 X10*3/uL [facility] Basophils Absolute Auto 0.0 0.0 - 0.2 X10*3/uL [facility] NRBC Abs Auto 0.000 0.0 - 0.012 X10*3/uL [facility] Blood Venous blood specimen / Unknown 01/22/2025 3:27 PM EDT 01/22/2025 5:52 PM EDT Reilly Mccoy MD LAB BLOOD ORDERABL ES Final Result Performing Organization Address [facility] Co de Phone Number [facility] [address] [place] [phone] * Iron And Total Iron Binding Capacity (01/22/2025 3:27 PM EDT) Iron 45 30 - 160 mcg/dL [facility] Total Iron Binding Capacity 308 228 - 428 mcg/dL [facility] Percent Iron Saturation 15 15 - 50 % [facility] Unsaturated Iron Binding 263 ug/dL [facility] Blood Venous blood specimen / Unknown 01/22/2025 3:27 PM EDT 01/22/2025 5:52 PM EDT Reilly Mccoy MD LAB BLOOD ORDERABL ES Final Result Performing Organization Address [facility]/ZIP Co de Phone Number [facility] [address] [place] [phone] * HPV DNA, Low/High Risk (10/02/2024 1:06 PM EDT) HPV High Risk Negative Negative [facility] HPV Genotype 16 Negative Negative [facility] HPV Genotype 18 Negative Negative [facility] Comment:HPV testing performe d at [facility] (CLIA#[id number]), [address] [place] [phone].Testing for HPV was performed using the Najma [...] ORDERAB LES Final Result Performing Organization Address City/State/[facility] Co de Phone Number [facility] [address] [place] [phone] * Pap Smear (10/02/2024 1:06 PM EDT) 10/02/2024 1:06 PM EDT 10/03/2024 9:40 AM EDT Narrative [facility] - 10/09/2024 10:13 AM EDT ----- ------- Name: Anne Nieves Age/Sex: 29/F : 1995 Unit#: [id number] Attend Dr: Angeles Vera CNM Re10/02/24 Status: DEP REF Location: [facility] Disch: ----- ------- SPEC : [id number] RECD: 10/03/24 STATUS: NAE FROST NUM: [id number] NATE: 10/02/24 [facility] DR: Angeles Vera CNM ENTERED: 10/03/24 SP [...] Received ThinPrep-Cervical Copies To: Reilly Taylor MD [address] [address] Angeles Vera CNM [facility] [address] [place] [address], 3rd [place] [address] ----- ------- Signed (signature on file) MADISYN Landis ([facility]) 10/09/24 1013 ----- ------- END OF REPORT us Generic External Data Provider LAB CYTOLOGY ORDSangita PEARSON Final Result Performing Organization Address [facility] Co de Phone Number [facility] [address] [place] [phone] * (ABNORMAL) Lipid Panel, Standard (07/04/2024 6:55 AM EST) Triglycerides 134 <150 mg/dL [facility] Comment:Desirable Triglyceri de: less than 150 mg/dLBorderline High Triglyceride 150-199 mg/dLHigh Triglyceride: 200-499 mg/dLVery High Triglyceride: greater than or equal to 5OO mg/dL Cholesterol 164 <200 mg/dL [facility] Comment:Desirable Cholestero l: less than 200 mg/dLBorderline High Cholesterol: 200-239 mg/dLHigh Cholesterol: greater than 239 mg/dL LDL Cholesterol Calculated 104(H) <100 mg/dL [facility] Comment:Desirable LDL: less than 100 mg/dLNear Optimal/Above Optimal LDL: 110- 129 mg/dLBorderline High LDL: 130-159 mg/dLHigh LDL: 160-189 mg/dLVery High LDL: greater than or equal to 190 mg/dL HDL Cholesterol 34(L) >40 mg/dL [facility] Comment:Desirable HDL: great er than 40 mg/dL Note: This HDL assay may give artificially low results in patients with liver disease. Blood Venous blood specimen / Unknown 07/04/2024 6:55 AM EST 07/04/2024 6:55 AM EST us Reilly Mccoy MD LAB BLOOD ORDERABL ES Final Result Performing Organization Address [facility] Co de Phone Number [facility] [address] [place] [phone] * HIV-1 RNA, Quantitative, Real-Time PCR with Reflex to Genotype (RTI, PI, Integrase) (07/06/2022 9:05 AM EST) HIV 1 RNA, QN PCR NOT DETECTED copies/mL [facility], HIV 1 RNA, QN PCR NOT DETECTED Log copies/mL [facility], Comment: REFERENCE RANGE: NOT DETECTED copies/mL NOT DETECTED Log copies/mL This test was performed using Real-Time Polymerase Chain Reaction. Reportable range is 20 to 10,000,000 copies/mL (1.30-7.00 Log copies/mL). 07/06/2022 9:05 AM EST 07/06/2022 9:06 AM EST Narrative [facility] - 07/13/2022 8:24 PM EST FASTING:YES FASTING: YES Reilly Mccoy MD LAB BLOOD ORDERABL ES Final Result [facility] [address], [place] [address] [facility], [address] [place] [address] * Hepatitis C Antibody with Reflex to HCV, RNA, Quantitative, Real-Time PCR (07/06/2022 9:05 AM EST) Hepatitis C Antibody NON-REACT CADY NON-REACT CADY [facility] [place] [facility] Index 0.03 <1.00 [facility] Comment: HCV antibody was non-reactive. There is no laboratory evidence of HCV infection. In most cases, no further action is required. However, if recent HCV exposure is suspected, a test for HCV RNA (test code 89612) is suggested. For additional information please refer to http://education.[employer]/faq/DHI17w9 (This link is being provided for informational/ educational purposes only.) Blood Venous blood specimen / Unknown 07/06/2022 9:05 AM EST 07/06/2022 9:06 AM EST Narrative [facility] - 07/13/2022 8:24 PM EST FASTING:YES FASTING: YES us Reilly Mccoy MD LAB BLOOD ORDERABL ES Final Result [facility] [address] [facility], [place] [address] [facility] [place] [facility] [address] [facility], ([address]) [place] [address] from Last 3 Months or Most Recently Relevant to Health Maintenance Insurance [facility] [employer] [facility] [address] [place] [address] Care Teams Senior Functional Analyst Relationship Specialty Start Date End Date Reilly Taylor MD [address] [place] [phone] PCP - General Internal Medicine 10/14/19
--- OUTSIDE RECORDS SUMMARY | 2025-02-18 11:01 | XMS_ITS | Clinical Summary ---
Author Organization [facility] Address [address] [place] [address] Care Team Providers Care Trade Union Official Name Role Phone Reilly Ocasio MD Primary Care Provider [phone] Allergies No known active allergies Medications Medication [...] age to complete this topic Care Teams Trade Union Official Relationship Specialty Start Date End Date Reilly Ocasio MD [address] [place] [phone] PCP - General Internal Medicine 07/27/21
--- OUTSIDE RECORDS SUMMARY | 2025-02-18 11:01 | XMS_ITS | Encounter Summary ---
Author Organization [employer] Address [address] [place] [address] Care Team Providers Care Manager Home Name Role Phone Reilly Taylor MD Primary Care Prov ider Reason for Visit * Reason Onset Date Comments Med Refill 08/29/2023 Encounter Details Date Type Department Care Team ([facility] st Contact Info) Description 08/29/2023 Refill [facility] MED & PEDS [address] [place] [address] Reilly Taylor MD [address] [place] [address] Social History Tobacco Use Types Packs/Day Years [...] as of this encounter Care Teams Manager Home Relationship Specialty Start Date End Date Reilly Taylor MD [address] [place] [phone] PCP - General Internal Medicine 10/14/19 documented as of this encounter
--- OUTSIDE RECORDS SUMMARY | 2025-02-18 11:01 | XMS_ITS | Encounter Summary ---
Author Organization [employer] Address [address] [place] [address] Care Team Providers Care Environmental Services Attendant Name Role Phone Reilly Taylor MD Primary Care Prov ider Reason for Visit * Reason Onset Date Comments Referral 08/21/2024 Encounter Details Date Type Department Care Team (Late st Contact Info) Description 08/21/2024 Telephone [facility] [address] [place] [address] Reilly Taylor MD [address] [place] [address] Referral Social History Tobacco Use Types Packs/Day [...] a referral for hematology. Contact pt at [phone] documented in this encounter Plan of Treatment Not on file documented as of this encounter Visit Diagnoses Not on filedocumented in this encounter Additional Health Concerns Assessment Noted Time PHQ-9 Depression Total Score: 1 09/01/19 23 2:22 PM EDT documented as of this encounter Care Teams Environmental Services Attendant Relationship Specialty Start Date End Date Reilly Taylor MD [address] [place] [phone] PCP - General Internal Medicine 10/14/19 documented as of this encounter
--- OUTSIDE RECORDS SUMMARY | 2025-02-18 11:01 | XMS_ITS | Encounter Summary ---
Author Organization [employer] Address [address] [place] [address] Care Team Providers Care Lockstitch Binder Name Role Phone Reilly Taylor MD Primary Care Prov ider Reason for Visit * Reason Onset Date Comments Med Refill 12/13/2022 Encounter Details Date Type Department Care Team (Late st Contact Info) Description 12/13/2022 Refill [facility] MEDICINE [address] [place], [place] [phone] Reilly Taylor MD [address] [place], [place] [phone] Primary hypertension Social History Tobacco Use Types [...] documented as of this encounter Care Teams Lockstitch Binder Relationship Specialty Start Date End Date Reilly Taylor MD [address] [place] [address] PCP - General Internal Medicine 10/14/19 documented as of this encounter
== END 2025-02-18 10:34 | disposition home or self-care (01) ==
LOC: HO.HWSM 09:56
PROVIDERS: Visit Provider Advanced Practice Midwife
DX: N92.1 Excessive and frequent menstruation with irregular cycle (principal); N83.209 Unspecified ovarian cyst, unspecified side; Z97.5 Presence of (intrauterine) contraceptive device
CPT/HCPCS: 99213

== ENCOUNTER 2025-03-11 11:30 | Outpatient (AMB) | payer OTHER, SELFPAY ==
--- NOTE | 2025-03-11 11:32 | MHC.OFFVIS ---
Vital Signs 03/11/25 11:46 Height 5 ft 6 in Weight 250 lb BMI 40.3 BP 120/78 Intake Visit Reasons: Iud Check Plunger Scoop Operator: Plunger Scoop Operator Present (Ning) Accompanied by: Self / Same As Patient Allergies No Known Allergies Allergy (Verified 03/11/25 11:34) Medication List - Last Reconciled 03/11/25 by Angeles Vera CNM cetirizine 10 mg PO DAILY hydrochlorothiazide 25 mg PO DAILY levonorgestrel (Mirena) intrauterine losartan 100 mg PO DAILY Is last menstrual period known: Yes Last menstrual period: 02/03/25 Post menopausal: No Patient : No HPI HPI Iud Check: Details: Patient is here the visit schedule says IUD check but this visit was supposed to have been changed to IUD replacement as per discussion with the patient on February 18 after her an ultrasound. The ultrasound was ordered to verify checking of the IUD after insertion which occurred in September of 2024. She did not get an appointment until last month and the reading showed that the IUD was placed low in the uterus so the plan is if possible to replace it today patient says she did find the placement slightly uncomfortable but she is up for replacing it today she does not get a periods anymore and so she is much happier with the bleeding pattern and happy that it is in there.. She can not remember if she has ever been checked for diabetes her primary care provider is Dr. Coates at the [facility]. She is struggling with her weight. She is not sexually active because her partner's in [place]. 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 Cervix is midposition uterus small anteverted mobile nontender adnexa nontender.. String was grasped with ring forceps and with 2nd tug while patient coughed the IUD was easily removed. Cervix was then cleansed with Betadine tenaculum was placed gently. Uterus was sounded to exactly the same measurement as the exam in September of this year 8.5 cm. Mirena IU S was removed from its packaging and Mirena was placed according to procedures with no difficulty. Tenaculum was removed strings were trimmed to about 4 cm. Patient was given the strings to feel so she knows what they feel like and I am ordering an ultrasound to verify correct placement given the last low placement of the IUD and we will see her for an IUD check after the ultrasound is done so proximally 4-6 weeks. Cultures were not necessary as patient has not been sexually active at all since previous insertion in September of this year. Office Procedures IUD Insert/Removal Details Details: ---Patient is here for her IUD removal and insertion. Bimanual exam was done. Her uterus is firm, nontender, and appropriate sized, and is midposition to antiverted . The IUD strings were grasped with ring forceps, and as patient coughed the IUD was removed easily with 1 tug. ---The cervix was recleaned with Betadine. Tenaculum was placed on the cervix slowly to minimize cramping. The uterus was sounded slowly and gently she show a measurement of 8.5 cm. The IUD was removed from its package, after checking identifying information and lot dates and expiration dates and and gently inserted into the os, as per the IUD insertion procedure. The strings were then trimmed to 4 centimetres. The tenaculum was removed and gentle pressure applied with a swab, until any bleeding subsided from the tenaculum sites. The speculum was gently removed. The patient sat up. I Reviewed what to expect, and what indications would necessitate a call. Pt to call for fever, untoward pain or cramping. I reviewed any appropriate backup method. Pt to return for recheck as scheduled. 12149-BIB Insertion 40799-LIQ Removal Procedure code (CPT) selection complete Office Meds Mirena 21 mcg/24 hr (up to 8 years) 52 mg intrauterine device Performing Provider: Angeles Vera CNM [place] [facility] Administered by: Lazara Nj CMA on 03/11/25 15:56 Dose Route Admin Location Dispensed Lot Number Expiration Date [facility] Bench Worker 1 device intrauterine [facility] 1 device [id number] 07/17/26 22588-107-20 [employer] Total Dispensed Waste 1 device 0 % Assessment & Plan Assessment & Plan (1) Obesity, morbid, BMI 40.0-49.9: Code(s): E66.01 - Morbid (severe) obesity due to excess calories Category: Medical (2) Presence of 52 mg levonorgestrel-releasing intrauterine device (IUD): Comment: Inserted for menometrorrhagia, after negative EMB, on 10/09/2024.; noted to be low lying in cervix on 02/04/2025 ultrasound discussed with patient will endeavor to replace on 03/11/2025 or as appointed.-03/11/2025 IUD was replaced, we will verify position with ultrasound and reassess in 4-6w. Patient tolerated procedure very well. Uterus again measures 8.5 cm strings left to be 4 cm long at this visit will assess for trimming after. Code(s): Z97.5 - Presence of (intrauterine) contraceptive device Category: Social Hx (3) Encounter for removal and reinsertion of intrauterine contraceptive device (IUD): Code(s): Z30.433 - Encounter for removal and reinsertion of intrauterine contraceptive device Category: Medical Plan Mirena IU S was replaced today as it was found to be low lying in the uterus on the ultrasound done 5 months after insertion. She tolerated the procedure very well which went very smoothly and precautions discussed and reasons to call discussed. I am ordering an ultrasound to verify correct placement and we will have a visit after an about 4-6 weeks to see how she is doing with it and reassess and trim the strings if necessary Orders: Orders US pelvic and transvaginal Today E66.01 - Morbid (severe) obesity due to excess calories, Z30.433 - Encounter for removal and reinsertion of intrauterine contraceptive device, Z97.5 - Presence of (intrauterine) contraceptive device AMB IUD Insertion/Removal - Practice Supplied Today Z30.430 - Encounter for insertion of intrauterine contraceptive device Coding Level of Care Code Est Pt Level 3 (60677) Diagnoses Obesity, morbid, BMI 40.0-49.9 E66.01 Presence of 52 mg levonorgestrel-releasing intrauterine device (IUD) Z97.5 Encounter for removal and reinsertion of intrauterine contraceptive device (IUD) Z30.433 CPT Codes Details - CPT: 82706-GCK Insertion ([id number]) Details - CPT: 60553-DHF Removal ([id number])
[2025-03-11 11:46] VITALS: BP 120/78; BMI 40.3
--- OUTSIDE RECORDS SUMMARY | 2025-03-11 15:55 | XMS_ITS | Encounter Summary ---
Author Organization [employer] Address [address] [place] [address] Care Team Providers Care Biomass Production Manager Name Role Phone Reilly Taylor MD Primary Care Prov ider Reason for Visit * Reason Onset Date Comments Med Refill 08/29/2023 Encounter Details Date Type Department Care Team ([facility] st Contact Info) Description 08/29/2023 Refill [facility] MED & PEDS [address] [place] [address] Reilly Taylor MD [address] [place] [address] Social History Tobacco Use Types Packs/Day Years [...] documented as of this encounter Care Teams Biomass Production Manager Relationship Specialty Start Date End Date Reilly Taylor MD [address] [place] [address] PCP - General Internal Medicine 10/14/19 documented as of this encounter
--- OUTSIDE RECORDS SUMMARY | 2025-03-11 15:55 | XMS_ITS | Encounter Summary ---
Author Organization [employer] Address [address] [place] [address] Care Team Providers Care Endless Track Vehicle Mechanic Name Role Phone Reilly Taylor MD Primary Care Prov ider Reason for Visit * Reason Onset Date Comments Med Refill 12/13/2022 Encounter Details Date Type Department Care Team (Late st Contact Info) Description 12/13/2022 Refill [facility]IC[facility] [address] [place], [place] [phone] Reilly Taylor MD [address] [place], [place] [phone] Primary hypertension Social History Tobacco Use Types [...] documented as of this encounter Care Teams Endless Track Vehicle Mechanic Relationship Specialty Start Date End Date Reilly Taylor MD [address] [place] [address] PCP - General Internal Medicine 10/14/19 documented as of this encounter
--- OUTSIDE RECORDS SUMMARY | 2025-03-11 15:55 | XMS_ITS | Clinical Summary ---
Author Organization [employer] Address [address] [facility] 7[address] [place] [address] Care Team Providers Care Line Director Name Role Phone Reilly Taylor MD Primary [...] (07/28/2024 4:04 PM EDT): Will refer to ob-gate cutter, she is also complaining of episodes of hot flashes Allergy 07/23/2023 Assessment & Plan (07/23/2023 8:51 AM EST): Patient refers ever since being exposed to a new plastic material at her job she has been suffering from allergies, told to continue with zyrtec, will refer to mortgage loan officer originator Iron deficiency 06/14/2022 Assessment & Plan (01/22/2025 [...] Plan (06/14/2022 2:37 PM EST): Controlled, saw export packer who ordered a abd/pelvic ct scan to r/o renal artery stenosis, will order new labs and follow up in 3 months Encounters Date Type Department Care Team Description 02/04/2025 Orders Only [facility] External Provider, [facility] 12/30/2024 3:30 PM EDT Telemedicine [facility] [address] [place] [address] Reilly Taylor MD Primary hypertension (Primary Dx); Iron deficiency 12/30/2024 Travel 12/09/2024 Refill [facility] [address] [place] [address] Reilly Taylor MD from Last 3 Months [...] PM EDT Narrative 02/04/2025 3:38 PM EDT [facility] [place] [address] Ultrasound Report Signed Patient: Anne Nieves MR#: [id number] : 1995 Acct:[id number] Age/Sex: 29 / F ADM Date: 02/04/25 Loc: HO.HMGCX Attending Dr: Angeles Vera CNM Ordering Physician: Angeles Vera CNM Date of Service: 02/04/25 Procedure(s): US pelvic and transvaginal Accession Number(s): [id number] cc: Reilly Taylor MD; Angeles Vera CNM [...] 02/04/25 1536 DD/ 1506 TD/TT: 02/04/25 1521 Production Weigher: Procedure Note Donotuseinterpreter, Image - 02/04/2025 [facility] [address] [place] [address] [place] [address] Ultrasound Report Signed Patient: Carlotta Nieveslatonya#: [id number] : 1995Acct:[id number] Age/Sex: 29 / FADM Date: 02/04/25 Loc: HO.HMGCX Attending Dr: Angeles Vera CNM Ordering Physician: Angeles Vera CNM Date of Service: 02/04/25 Procedure(s): US pelvic and transvaginal Accession Number(s): [id number] cc: Reilly Taylor MD; Angeles Vera CNM [...] MD 02/04/2025 03:36 PM EDT Dictated By: Pabilto Toure MD Signed By: <Electronically signed by Pablito Toure MD in OV> 02/04/25 1536 DD/ 1506 TD/TT: 02/04/25 1521 Production Weigher: us [facility] External Provider IMG US PROCEDURES Edited Result - Final * (ABNORMAL) CBC auto differential (01/22/2025 3:27 PM EDT) White Blood Count 9.7 4.8 - 10.8 X10*3/uL [facility] Red Blood Count 5.06 4.20 - 5.50 X10*6/uL [facility] Hemoglobin 11.0(L) 12.0 - 16.0 g/dl [facility] Hematocrit 34.9(L) 37.0 - 47.0 % [facility] Mean Corpuscular Volume 69.0(L) 80.0 - 98.0 fL [facility] Mean Corpuscular Hemoglobin 21.7(L) 27.0 - 33.0 pg [facility] Mean Corpuscular HGB Conc 31.5 31.0 - 35.0 g/dl [facility] Red Cell Distribution Width 17.6(H) 11.0 - 16.0 % [facility] Platelet Count 325 160 - 400 X10*3/uL [facility] Mean Platelet Volume 11.1 9.4 - 12.3 fL [facility] Neutrophils Percent Auto 65.0 45 - 73 % [facility] Imm Gran Pct Auto 0.3 0.0 - 0.4 % [facility] Lymphocytes Percent Auto 26.4 20 - 40 % [facility] Monocytes Percent Auto 6.6 2 - 11 % [facility] Eosinophils Percent Auto 1.3 0 - 4 % [facility] Basophils Percent Auto 0.4 0 - 2 % [facility] NRBC Pct Auto 0.0 0.0 - 0.2 /100WBC [facility] Neutrophils Absolute Auto 6.3 2.0 - 8.3 x10*3/uL [facility] Imm Gran Abs Auto 0.03 0.00 - 0.03 X10*3/uL [facility] Lymphocytes Absolute Auto 2.6 1.2 - 4.9 X10*3/uL [facility] Monocytes Absolute Auto 0.6 0.1 - 1.2 X10*3/uL [facility] Eosinophils Absolute Auto 0.1 0.0 - 0.4 X10*3/uL [facility] Basophils Absolute Auto 0.0 0.0 - 0.2 X10*3/uL [facility] NRBC Abs Auto 0.000 0.0 - 0.012 X10*3/uL [facility] Blood Venous blood specimen / Unknown 01/22/2025 3:27 PM EDT 01/22/2025 5:52 PM EDT Reilly Mccoy MD LAB BLOOD ORDERABL ES Final Result Performing Organization Address [facility] Co de Phone Number [facility] [address] [place] [phone] * Iron And Total Iron Binding Capacity (01/22/2025 3:27 PM EDT) Iron 45 30 - 160 mcg/dL [facility] Total Iron Binding Capacity 308 228 - 428 mcg/dL [facility] Percent Iron Saturation 15 15 - 50 % [facility] Unsaturated Iron Binding 263 ug/dL [facility] Blood Venous blood specimen / Unknown 01/22/2025 3:27 PM EDT 01/22/2025 5:52 PM EDT Reilly Mccoy MD LAB BLOOD ORDERABL ES Final Result Performing Organization Address [facility]/ZIP Co de Phone Number [facility] [address] [place] [phone] * HPV DNA, Low/High Risk (10/02/2024 1:06 PM EDT) HPV High Risk Negative Negative [facility] HPV Genotype 16 Negative Negative [facility] HPV Genotype 18 Negative Negative [facility] Comment:HPV testing performe d at [facility] (CLIA#[id number]), [address] [place] [phone].Testing for HPV was performed using the Najma [...] ORDERAB LES Final Result Performing Organization Address City/State/[facility] Co de Phone Number [facility] [address] [place] [phone] * Pap Smear (10/02/2024 1:06 PM EDT) 10/02/2024 1:06 PM EDT 10/03/2024 9:40 AM EDT Narrative [facility] - 10/09/2024 10:13 AM EDT ----- ------- Name: Anne Nieves Age/Sex: 29/F : 1995 Unit#: [id number] Attend Dr: Angeles Vera CNM Re10/02/24 Status: DEP REF Location: [facility] Disch: ----- ------- SPEC : [id number] RECD: 10/03/24 STATUS: NAE FROST NUM: [id number] NATE: 10/02/[address] [facility] [address]: Angeles Vera CNM ENTERED: 10/03/24 SP [...] Received ThinPrep-Cervical Copies To: Reilly Taylor MD [address] [address] Angeles Vera CNM [facility] [address] [place] [address], 3[address] [place] [address] ----- ------- Signed (signature on file) MADISYN Landis ([facility]) 10/09/24 1013 ----- ------- END OF REPORT us Generic External Data Provider LAB CYTOLOGY ORDSangita PEARSON Final Result Performing Organization Address [facility] Co de Phone Number [facility] [address] [place] [phone] * (ABNORMAL) Lipid Panel, Standard (07/04/2024 6:55 AM EST) Triglycerides 134 <150 mg/dL [facility] Comment:Desirable Triglyceri de: less than 150 mg/dLBorderline High Triglyceride 150-199 mg/dLHigh Triglyceride: 200-499 mg/dLVery High Triglyceride: greater than or equal to 5OO mg/dL Cholesterol 164 <200 mg/dL [facility] Comment:Desirable Cholestero l: less than 200 mg/dLBorderline High Cholesterol: 200-239 mg/dLHigh Cholesterol: greater than 239 mg/dL LDL Cholesterol Calculated 104(H) <100 mg/dL [facility] Comment:Desirable LDL: less than 100 mg/dLNear Optimal/Above Optimal LDL: 110- 129 mg/dLBorderline High LDL: 130-159 mg/dLHigh LDL: 160-189 mg/dLVery High LDL: greater than or equal to 190 mg/dL HDL Cholesterol 34(L) >40 mg/dL [facility] Comment:Desirable HDL: great er than 40 mg/dL Note: This HDL assay may give artificially low results in patients with liver disease. Blood Venous blood specimen / Unknown 07/04/2024 6:55 AM EST 07/04/2024 6:55 AM EST us Reilly Mccoy MD LAB BLOOD ORDERABL ES Final Result Performing Organization Address [facility] Co de Phone Number [facility] [address] [place] [address] [phone] * HIV-1 RNA, Quantitative, Real-Time PCR with Reflex to Genotype (RTI, PI, Integrase) (07/06/2022 9:05 AM EST) HIV 1 RNA, QN PCR NOT DETECTED copies/mL [facility], HIV 1 RNA, QN PCR NOT DETECTED Log copies/mL [facility], Comment: REFERENCE RANGE: NOT DETECTED copies/mL NOT DETECTED Log copies/mL This test was performed using Real-Time Polymerase Chain Reaction. Reportable range is 20 to 10,000,000 copies/mL (1.30-7.00 Log copies/mL). 07/06/2022 9:05 AM EST 07/06/2022 9:06 AM EST Narrative [facility] - 07/13/2022 8:24 PM EST FASTING:YES FASTING: YES Reilly Mccoy MD LAB BLOOD ORDERABL ES Final Result [facility] [address], [place] [address] [facility], [address] [place] [address] * Hepatitis C Antibody with Reflex to HCV, RNA, Quantitative, Real-Time PCR (07/06/2022 9:05 AM EST) Hepatitis C Antibody NON-REACT CADY NON-REACT CADY [facility] [place] [facility] Index 0.03 <1.00 [facility] Comment: HCV antibody was non-reactive. There is no laboratory evidence of HCV infection. In most cases, no further action is required. However, if recent HCV exposure is suspected, a test for HCV RNA (test code 73540) is suggested. For additional information please refer to http://education.Buddy/faq/XMG60v7 (This link is being provided for informational/ educational purposes only.) Blood Venous blood specimen / Unknown 07/06/2022 9:05 AM EST 07/06/2022 9:06 AM EST Narrative [facility] - 07/13/2022 8:24 PM EST FASTING:YES FASTING: YES us Reilly Mccoy MD LAB BLOOD ORDERABL ES Final Result [facility] [address] [facility], [place] [address] [facility] [address] [facility], ([address]) [place] [address] from Last 3 Months or Most Recently Relevant to Health Maintenance Insurance [facility] 3 Care Teams Line Director Relationship Specialty Start Date End Date Reilly Taylor MD [address] [place] [phone] PCP - General Internal Medicine 10/14/19
--- OUTSIDE RECORDS SUMMARY | 2025-03-11 15:55 | XMS_ITS | Clinical Summary ---
Author Organization [facility] Address [address] [place] [address] Care Team Providers Care Knowledge Management Consultant Name Role Phone Reilly Ocasio MD Primary Care Provider [phone] Allergies No known active allergies Medications Medication [...] age to complete this topic Care Teams Knowledge Management Consultant Relationship Specialty Start Date End Date Reilly Ocasio MD [address] [place] [phone] PCP - General Internal Medicine 07/27/21
--- OUTSIDE RECORDS SUMMARY | 2025-03-11 15:55 | XMS_ITS | Encounter Summary ---
Author Organization [employer] Address [address] [place] [address] Care Team Providers Care Tunnel Elastic Operator Chainstitch Name Role Phone Reilly Taylor MD Primary Care Prov ider Reason for Visit * Reason Onset Date Comments Referral 08/21/2024 Encounter Details Date Type Department Care Team (Late st Contact Info) Description 08/21/2024 Telephone [facility] MEDICINE [address] [place] [address] Reilly Taylor MD [address] [place] [address] Referral Social History Tobacco Use Types Packs/Day [...] a referral for hematology. Contact pt at [phone] documented in this encounter Plan of Treatment Not on file documented as of this encounter Visit Diagnoses Not on filedocumented in this encounter Additional Health Concerns Assessment Noted Time PHQ-9 Depression Total Score: 1 09/01/19 23 2:22 PM EDT documented as of this encounter Care Teams Tunnel Elastic Operator Chainstitch Relationship Specialty Start Date End Date Reilly Taylor MD [address] [place] [phone] PCP - General Internal Medicine 10/14/19 documented as of this encounter
== END 2025-03-11 16:00 | disposition home or self-care (01) ==
PROVIDERS: Visit Provider Advanced Practice Midwife
DX: Z30.433 Encounter for removal and reinsertion of intrauterine contraceptive device (principal); E66.01 Morbid (severe) obesity due to excess calories; Z68.41 Body mass index [BMI] 40.0-44.9, adult; Z97.5 Presence of (intrauterine) contraceptive device
CPT/HCPCS: 58300; 58301; 99213

== ENCOUNTER → 2025-03-11 11:30 | Outpatient (BNVA) | payer OTHER, SELFPAY | PROVIDERS: Visit Provider Advanced Practice Midwife | DX: Z30.433 Encounter for removal and reinsertion of intrauterine contraceptive device (principal); E66.01 Morbid (severe) obesity due to excess calories | CPT/HCPCS: 58300; 58301; 99212; J7298 ==

== ENCOUNTER 2025-03-20 13:15 | Outpatient (RCR) | payer OTHER, SELFPAY ==
[2025-02-13 13:47] VITALS: BP 139/57; PULSE 72; RESP 16; TEMP 36.6; O2SAT 97
[2025-02-20 12:47] VITALS: BP 128/77; PULSE 76; RESP 16; TEMP 36.7; O2SAT 96
[2025-02-26 13:47] VITALS: BP 133/69; PULSE 67; RESP 16; TEMP 36.7; O2SAT 99
[2025-03-06 11:35] VITALS: BP 129/71; PULSE 75; RESP 16; TEMP 36.5; O2SAT 98
[2025-03-13 13:11] VITALS: BP 116/66; PULSE 70; RESP 16; TEMP 36.7; O2SAT 99
[2025-03-20 12:54] VITALS: BP 118/82; PULSE 72; RESP 16; TEMP 36.3; O2SAT 98
[2025-03-20 13:16] LABS: Hematocrit 37.6 % (37.0-47.0); Hemoglobin 12.4 g/dl (12.0-16.0); Mean Corpuscular HGB Conc 33.0 g/dl (31.0-35.0); Mean Corpuscular Hemoglobin 24.9 pg (27.0-33.0); Mean Corpuscular Volume 75.5 fL (80.0-98.0); NRBC Abs Auto 0.000 X10*3/uL (0.0-0.012); NRBC Pct Auto 0.0 /100WBC (0.0-0.2); Platelet Count 255 X10*3/uL (160-400); Red Blood Count 4.98 X10*6/uL (4.20-5.50); White Blood Count 8.7 X10*3/uL (4.8-10.8)
[2025-03-20 13:53] LABS: Ferritin 294 ng/mL (10-122)
== END 2025-03-20 13:56 | disposition home or self-care (01) ==
LOC: HO.INF 13:15
PROVIDERS: Visit Provider Nurse Practitioner Family
DX: D64.9 Anemia, unspecified (principal)
CPT/HCPCS: 36415; 82728; 85027; 96365; 96374; J1756

== ENCOUNTER 2025-04-18 10:14 | Outpatient (REF) | payer OTHER, SELFPAY ==
--- NOTE | ~2025-04-18 | US_ITS ---
EXAMINATION: US PELVIS, COMPLETE CLINICAL INFORMATION: Z97.5 - Presence of (intrauterine) contraceptive device COMPARISON: Ultrasound 6 02/04/2025 TECHNIQUE: Transabdominal and transvaginal imaging was performed. FINDINGS: Uterus is anteverted and anteflexed , measuring 8.5 x 4.6 x 5.9 cm. No focal uterine lesion. Nabothian cysts. Endometrial thickness 0.7 cm. IUD is appropriately positioned within the endometrial canal. Right ovary measures 3.4 x 1.5 x 2 cm. Volume 5.3 mL. 3 anechoic ovarian cysts, largest measuring 1.4 cm. There is normal in echotexture. Left ovary measures 2.7 x 1.6 x 2.2 cm. Volume 5 mL. Ovary is normal in size and echotexture. No free fluid in the cul-de-sac. US/US pelvic and transvaginal IMPRESSION: IUD is appropriately positioned within the endometrial canal. Electronically signed by: Nelson Timmons MD 04/20/2025 08:00 AM [facility]
--- OUTSIDE RECORDS SUMMARY | 2025-04-18 10:17 | XMS_ITS | Encounter Summary ---
Author Organization [email or web address] Address [address] [place] [address] Care Team Providers Care Ceramics Machine Operator Name Role Phone Reilly Taylor MD Primary Care Prov ider Reason for Visit * Reason Onset Date Comments Referral 08/21/2024 Encounter Details Date Type Department Care Team (Late st Contact Info) Description 08/21/2024 Telephone [facility] MEDICINE [address] [place] [address] Reilly Taylor MD [address] [place] [address] Referral Social History Tobacco Use Types Packs/Day [...] a referral for hematology. Contact pt at [phone] documented in this encounter Plan of Treatment Not on file documented as of this encounter Visit Diagnoses Not on filedocumented in this encounter Additional Health Concerns Assessment Noted Time PHQ-9 Depression Total Score: 1 09/01/19 23 2:22 PM EDT documented as of this encounter Care Teams Ceramics Machine Operator Relationship Specialty Start Date End Date Reilly Taylor MD [address] [place] [phone] PCP - General Internal Medicine 10/14/19 documented as of this encounter
--- OUTSIDE RECORDS SUMMARY | 2025-04-18 10:17 | XMS_ITS | Encounter Summary ---
Author Organization [employer] Address [address] [place] [address] Care Team Providers Care Analytical Engineer Name Role Phone Reilly Taylor MD Primary Care Prov ider Reason for Visit * Reason Onset Date Comments Med Refill 08/29/2023 Encounter Details Date Type Department Care Team ([facility] st Contact Info) Description 08/29/2023 Refill [facility] MED & PEDS [address] [place] [address] Reilly Taylor MD [address] [place] [address] Social History Tobacco Use Types Packs/Day Years [...] documented as of this encounter Care Teams Analytical Engineer Relationship Specialty Start Date End Date Reilly Taylor MD [address] [place] [phone] PCP - General Internal Medicine 10/14/19 documented as of this encounter
--- OUTSIDE RECORDS SUMMARY | 2025-04-18 10:17 | XMS_ITS | Clinical Summary ---
Author Organization [employer] Address [address] [facility] [address] [place] [address] Care Team Providers Care Remote Sensing Specialist Name Role Phone Reilly Taylor MD Primary Care Prov ider Allergies No known active allergies Medications Blood Pressure kit 1 kit in the morning. 1 kit 03/29/20 23 Active hydroCHLOROthiaz carolyn (HYDRODiuril) 25 MG tabletIndication s:Primary hypertension Take 1 tablet (25 mg) by mouth in the morning. 90 tablet 3 06/30/19 25 Active ferrous sulfate (FeroSul) 325 (65 Fe) MG tabletIndication s:Iron deficiency Take 1 tablet (325 mg) by mouth with breakfast. 90 tablet 3 06/30/19 25 026 Active psyllium (Metamucil) 58.6 % packet Take 1 packet (3.4 g of fiber) by mouth 2 times daily. Mix and drink with at least 8 ounces of water or juice. 60 packet 11 11/13/19 25 026 Active cetirizine (ZyrTEC) 10 MG tablet TAKE 1 TABLET BY MOUTH EVERY DAY 90 tablet 1 5 3:56 PM EST 03/26/20 25 Active losartan (Cozaar) 100 MG tablet TAKE 1 TABLET BY MOUTH EVERY DAY 90 tablet 1 03/26/20 25 Active Emollient (Cetaphil) moisturizing lotion APPLY TO THE AFFECTED AREA(S) TWICE DAILY 237 mL 1 5 3:56 PM EST 03/26/20 25 Active phentermine 15 MG capsule Take 1 capsule (15 mg) by mouth before breakfast. 30 capsule 3:56 PM EST 04/01/20 025 Active topiramate (Topamax) 50 MG tablet Take 1 tablet (50 mg) by mouth Once per day. 30 tablet 1 5 3:56 PM EST 04/01/20 026 Active cetirizine (ZyrTEC) 10 MG tablet Take 1 tablet (10 mg) by mouth Once per day. 30 tablet 11 07/09/19 025 Discontinued(Re order (will not trigger notification to Pharmacy)) losartan (Cozaar) 100 MG tablet Take 1 tablet (100 mg) by mouth Once per day. 30 tablet 11/13/19 025 Discontinued(Re order (will not trigger notification to Pharmacy)) Emollient (Cetaphil) moisturizing lotion APPLY TO THE AFFECTED AREA(S) TWICE DAILY 237 mL 1 12/10/19 025 Discontinued(Re order (will not trigger notification to Pharmacy)) Active Problems Problem Noted Date Diagnosed Date Class 3 severe obesity due t o excess calories with serious comorbidity and body mass index (BMI) of 40.0 to 44.9 in adult 04/01/2025 Assessment & Plan (04/01/2025 3:25 PM EST): Will start on phentermine and topamax, risk vs benefits discussed, follow up in 3 months Menorrhagia with regular cycle 07/28/2024 Assessment & Plan (07/28/2024 4:04 PM EDT): Will refer to ob-assistant to the dean, she is also complaining of episodes of hot flashes Allergy 07/23/2023 Assessment & Plan (07/23/2023 8:51 AM EST): Patient refers ever since being exposed to a new plastic material at her job she has been suffering from allergies, told to continue with zyrtec, will refer to chicken catcher Iron deficiency 06/14/2022 Assessment & Plan (04/01/2025 3:24 PM EST): Following hematology, last hgb as per patient was 12.6 Assessment & Plan (01/22/2025 2:24 PM EDT): [...] therapy Primary hypertension 06/14/2022 Assessment & Plan (04/01/2025 3:24 PM EST): Controlled, keep low sodium diet and exercise as tolerated, keep blood pressure log, follow up in 3-4 months Assessment & Plan (01/22/2025 2:23 PM EDT): [...] Plan (06/14/2022 2:37 PM EST): Controlled, saw automation tender who ordered a abd/pelvic ct scan to r/o renal artery stenosis, will order new labs and follow up in 3 months Encounters Date Type Department Care Team Description 04/01/2025 3:15 PM EST Telemedicine [facility] [address] [place] [address] Reilly Taylor MD Primary hypertension (Primary Dx); Iron deficiency; Class 3 severe obesity due to excess calories with serious comorbidity and body mass index (BMI) of 40.0 to 44.9 in adult (HCC) 04/01/2025 Travel 03/30/2025 Telephone [facility] [address] [place] [address] Reilly Taylor MD chart prep 03/25/2025 Refill [facility] [address] [place] [address] Reilly Taylor MD Primary hypertension; Iron deficiency 02/04/2025 Orders Only [facility] External Provider, [facility] from Last 3 Months Immunizations Immunization Administration [...] Sign Reading Time Taken Comments Blood Pressure 118/80 04/01/2025 2:55 PM EST Pulse 82 12/30/2024 3:21 PM EDT Temperature [...] PM EDT Narrative 02/04/2025 3:38 PM EDT [facility] [place] [address] [address] Ultrasound Report Signed Patient: Anne Nieves MR#: [id number] : 1995 Acct:[id number] Age/Sex: 29 / F ADM Date: 02/04/25 Loc: HO.HMGCX Attending Dr: Angeles Vera CNM Ordering Physician: Angeles Vera CNM Date of Service: 02/04/25 Procedure(s): US pelvic and transvaginal Accession Number(s): [id number] cc: Relily Taylor MD; Angeles Vera CNM Reason for Exam: N83.209 - Unspecified ovarian cyst, unspecified side EXAMINATION: US PELVIS TRANSABDOMINAL AND TRANSVAGINAL HISTORY: N83.209 - Unspecified ovarian cyst, unspecified side COMPARISON: Comparison is made with the prior examination dated 09/19/2024. TECHNIQUE: Transabdominal and endovaginal real-time 2D londno-scale ultrasound was performed. FINDINGS: Uterus: The uterus [...] 02/04/25 1536 DD/ 1506 TD/TT: 02/04/25 1521 Dopeman: Procedure Note Donotuseinterpreter, Image - 02/04/2025 [facility] [place] [facility] [place] [address] Ultrasound Report Signed Patient: Carlotta Nieveslatonya#: [id number] : 1995Acct:[id number] Age/Sex: 29 / FADM Date: 02/04/25 Loc: HO.HMGCX Attending Dr: Angeles Vera CNM Ordering Physician: Angeles Vera CNM Date of Service: 02/04/25 Procedure(s): US pelvic and transvaginal Accession Number(s): [id number] cc: Reilly Taylor MD; Angeles Vera CNM [...] 02/04/25 1536 DD/ 1506 TD/TT: 02/04/25 1521 Dopeman: us [facility] External Provider IMG US PROCEDURES Edited Result - Final * (ABNORMAL) CBC auto differential (01/22/2025 3:27 PM EDT) White Blood Count 9.7 4.8 - 10.8 X10*3/uL [facility] Red Blood Count 5.06 4.20 - 5.50 X10*6/uL [facility] Hemoglobin 11.0(L) 12.0 - 16.0 g/dl [facility] Hematocrit 34.9(L) 37.0 - 47.0 % [facility] Mean Corpuscular Volume 69.0(L) 80.0 - 98.0 fL [facility] Mean Corpuscular Hemoglobin 21.7(L) 27.0 - 33.0 pg [facility] Mean Corpuscular HGB Conc 31.5 31.0 - 35.0 g/dl [facility] Red Cell Distribution Width 17.6(H) 11.0 - 16.0 % [facility] Platelet Count 325 160 - 400 X10*3/uL [facility] Mean Platelet Volume 11.1 9.4 - 12.3 fL [facility] Neutrophils Percent Auto 65.0 45 - 73 % [facility] Imm Gran Pct Auto 0.3 0.0 - 0.4 % [facility] Lymphocytes Percent Auto 26.4 20 - 40 % [facility] Monocytes Percent Auto 6.6 2 - 11 % [facility] Eosinophils Percent Auto 1.3 0 - 4 % [facility] Basophils Percent Auto 0.4 0 - 2 % [facility] NRBC Pct Auto 0.0 0.0 - 0.2 /100WBC [facility] Neutrophils Absolute Auto 6.3 2.0 - 8.3 x10*3/uL [facility] Imm Gran Abs Auto 0.03 0.00 - 0.03 X10*3/uL [facility] Lymphocytes Absolute Auto 2.6 1.2 - 4.9 X10*3/uL [facility] Monocytes Absolute Auto 0.6 0.1 - 1.2 X10*3/uL [facility] Eosinophils Absolute Auto 0.1 0.0 - 0.4 X10*3/uL [facility] Basophils Absolute Auto 0.0 0.0 - 0.2 X10*3/uL [facility] NRBC Abs Auto 0.000 0.0 - 0.012 X10*3/uL [facility] Blood Venous blood specimen / Unknown 01/22/2025 3:27 PM EDT 01/22/2025 5:52 PM EDT Reilly Mccoy MD LAB BLOOD ORDERABL ES Final Result Performing Organization Address [facility]/ZIP Co de Phone Number [facility] [address] [place] [phone] * Iron And Total Iron Binding Capacity (01/22/2025 3:27 PM EDT) Iron 45 30 - 160 mcg/dL [facility] Total Iron Binding Capacity 308 228 - 428 mcg/dL [facility] Percent Iron Saturation 15 15 - 50 % [facility] Unsaturated Iron Binding 263 ug/dL [facility] Blood Venous blood specimen / Unknown 01/22/2025 3:27 PM EDT 01/22/2025 5:52 PM EDT us Reilly Mccoy MD LAB BLOOD ORDERABL ES Final Result Performing Organization Address City/[facility]/ZIP Co de Phone Number [facility] [address] [place] [address] [phone] * HPV DNA, Low/High Risk (10/02/2024 1:06 PM EDT) HPV High Risk Negative Negative [facility] HPV Genotype 16 Negative Negative [facility] HPV Genotype 18 Negative Negative [facility] Comment:HPV testing performe d at [facility] (CLIA#[id number]), [address] [place] [phone].Testing for HPV was performed using the Najma [...] ORDERAB LES Final Result Performing Organization Address City/State/[facility] Co de Phone Number [facility] [address] [place] [phone] * Pap Smear (10/02/2024 1:06 PM EDT) 10/02/2024 1:06 PM EDT 10/03/2024 9:40 AM EDT Narrative [facility] - 10/09/2024 10:13 AM EDT ----- ------- Name: Anne Nieves Age/Sex: 29/F : 1995 Unit#: [id number] Attend Dr: Angeles Vera CNM Re10/02/24 Status: DEP REF Location: [facility] Disch: ----- ------- SPEC : [id number] RECD: 10/03/24 STATUS: NAE FROST NUM: [id number] NATE: 10/02/24-[address] [facility] [address]: Angeles Vera CNM ENTERED: 10/03/24-1048 SP TYPE: Pap Smr OTHR DR: Reilly [...] Received ThinPrep-Cervical Copies To: Reilly Taylor MD [address] [address] Angeles Vera CNM [facility] [address] [place] [address], [address] [place] [address] ----- ------- Signed (signature on file) MADISYN Landis ([facility]) 10/09/24 1013 ----- ------- END OF REPORT Generic External Data Provider LAB CYTOLOGY LEONEL PEARSON Final Result Performing Organization Address [facility] Co de Phone Number [facility] [address] [place] [address] [phone] * (ABNORMAL) Lipid Panel, Standard (07/04/2024 6:55 AM EST) Triglycerides 134 <150 mg/dL [facility] Comment:Desirable Triglyceri de: less than 150 mg/dLBorderline High Triglyceride 150-199 mg/dLHigh Triglyceride: 200-499 mg/dLVery High Triglyceride: greater than or equal to 5OO mg/dL Cholesterol 164 <200 mg/dL [facility] Comment:Desirable Cholestero l: less than 200 mg/dLBorderline High Cholesterol: 200-239 mg/dLHigh Cholesterol: greater than 239 mg/dL LDL Cholesterol Calculated 104(H) <100 mg/dL [facility] Comment:Desirable LDL: less than 100 mg/dLNear Optimal/Above Optimal LDL: 110- 129 mg/dLBorderline High LDL: 130-159 mg/dLHigh LDL: 160-189 mg/dLVery High LDL: greater than or equal to 190 mg/dL HDL Cholesterol 34(L) >40 mg/dL [facility] Comment:Desirable HDL: great er than 40 mg/dL Note: This HDL assay may give artificially low results in patients with liver disease. Blood Venous blood specimen / Unknown 07/04/2024 6:55 AM EST 07/04/2024 6:55 AM EST us Reilly Mccoy MD LAB BLOOD ORDERABL ES Final Result Performing Organization Address [facility]/ZIP Co de Phone Number [facility] [address] [place] [address] [phone] * HIV-1 RNA, Quantitative, Real-Time PCR with Reflex to Genotype (RTI, PI, Integrase) (07/06/2022 9:05 AM EST) HIV 1 RNA, QN PCR NOT DETECTED copies/mL [facility], HIV 1 RNA, QN PCR NOT DETECTED Log copies/mL [facility], Comment: REFERENCE RANGE: NOT DETECTED copies/mL NOT DETECTED Log copies/mL This test was performed using Real-Time Polymerase Chain Reaction. Reportable range is 20 to 10,000,000 copies/mL (1.30-7.00 Log copies/mL). 07/06/2022 9:05 AM EST 07/06/2022 9:06 AM EST Narrative [facility] - 07/13/2022 8:24 PM EST FASTING:YES FASTING: YES Reilly Mccoy MD LAB BLOOD ORDERABL ES Final Result [facility] [address], [place] [address] [facility], [address] [place] [address] * Hepatitis C Antibody with Reflex to HCV, RNA, Quantitative, Real-Time PCR (07/06/2022 9:05 AM EST) Pathologist [facility] Hepatitis C Antibody NON-REACT CADY NON-REACT CADY [facility] Index 0.03 <1.00 [facility] Comment: HCV antibody was non-reactive. There is no laboratory evidence of HCV infection. In most cases, no further action is required. However, if recent HCV exposure is suspected, a test for HCV RNA (test code 31412) is suggested. For additional information please refer to http://education.[employer]/faq/FDC74k4 (This link is being provided for informational/ educational purposes only.) Blood Venous blood specimen / Unknown 07/06/2022 9:05 AM EST 07/06/2022 9:06 AM EST Narrative [facility] - 07/13/2022 8:24 PM EST FASTING:YES FASTING: YES us Reilly Mccoy MD LAB BLOOD ORDERABL ES Final Result [facility] [address] [facility] [place] [address] [facility] [address] [facility], ([address]) [place] [address] from Last 3 Months or Most Recently Relevant to Health Maintenance Insurance [facility] 3 Care Teams Remote Sensing Specialist Relationship Specialty Start Date End Date Reilly Taylor MD [address] [place] [phone] PCP - General Internal Medicine 10/14/19
--- OUTSIDE RECORDS SUMMARY | 2025-04-18 10:17 | XMS_ITS | Clinical Summary ---
Author Organization [facility] Address [address] [place] [address] Care Team Providers Care Philosophy Professor Name Role Phone Reilly Ocasio MD Primary Care Provider [phone] Allergies No known active allergies Medications Medication [...] age to complete this topic Care Teams Philosophy Professor Relationship Specialty Start Date End Date Reilly Ocasio MD [address] [place] [phone] PCP - General Internal Medicine 07/27/21
--- OUTSIDE RECORDS SUMMARY | 2025-04-18 10:17 | XMS_ITS | Encounter Summary ---
Author Organization [employer] Address [address] [place] [phone] Care Team Providers Care Digital Marketing Apprentice Name Role Phone Reilly Taylor MD Primary Care Prov ider Reason for Visit * Reason Onset Date Comments Med Refill 12/13/2022 Encounter Details Date Type Department Care Team (Late st Contact Info) Description 12/13/[address] [facility] [address] [place], [place] [phone] Reilly Taylor MD [address] [place], [place] [phone] Primary hypertension Social History Tobacco Use Types [...] documented as of this encounter Care Teams Digital Marketing Apprentice Relationship Specialty Start Date End Date Reilly Taylor MD [address] [place] [address] PCP - General Internal Medicine 10/14/19 documented as of this encounter
== END 2025-04-18 10:15 | disposition home or self-care (01) ==
LOC: HO.US 10:14
PROVIDERS: PCP Internal Medicine; Visit Provider Advanced Practice Midwife
DX: E66.01 Morbid (severe) obesity due to excess calories (principal); Z97.5 Presence of (intrauterine) contraceptive device
CPT/HCPCS: 76830; 76856

== ENCOUNTER → 2025-04-27 11:00 | Outpatient (BNV) | payer OTHER, SELFPAY | PROVIDERS: PCP Internal Medicine; Referring Provider Internal Medicine; Visit Provider Nurse Practitioner Family | DX: D50.0 Iron deficiency anemia secondary to blood loss (chronic) (principal) | CPT/HCPCS: 99204; 99213 ==

== ENCOUNTER 2025-04-30 13:29 | Outpatient (AMB) | payer OTHER, SELFPAY ==
--- NOTE | 2025-04-30 13:51 | MHC.OFFVIS ---
Vital Signs 04/30/25 13:56 Height 5 ft 6 in Weight 235 lb BMI 37.9 BP 120/92 H Intake Visit Reasons: IUD check/ US results Assurance Sourcing Manager Required: Yes Assurance Sourcing Manager Language: Turkmen Crib Pad Maker: Crib Pad Maker Present (Ning) Accompanied by: Self / Same As Patient Allergies No Known Allergies Allergy (Verified 04/30/25 13:55) Medication List - Last Reconciled 04/30/25 by Angeles Vera CNM cetirizine (Zyrtec) 10 mg PO DAILY hydrochlorothiazide 25 mg PO DAILY levonorgestrel (Mirena) as directed. losartan 100 mg PO DAILY [phentermine 15 mg PO DAILY] [topiramate 50 mg PO DAILY] Is last menstrual period known: Yes Last menstrual period: 03/11/25 Post menopausal: No Patient : No HPI HPI IUD check/ US results: Details: Patient is here for her IUD check and to review the ultrasound that I ordered to verify the correct placement of the IUD she has had the IUD in the past and then months later had an ultrasound to check on position and it was found to be low lying so the last IUD was removed and replaced in February. She had her periods starting on the day the I did the insertion and she said it lasted around the same time as usual she has not had a period since then, but she continues to have some spotting as in today. She is not sexually active. She is using the IUD to help with her bleeding pattern. Her blood pressure was high at the beginning of the visit today she is on 2 medications for her blood pressure 1 of which she took around 10:00 this morning. She also was started on 2 medications to help with weight loss per her primary care provider last month. She thinks that it is actually helping and she is seeing a difference she has follow-up planned with her primary care provider 2-3 months from that visit. She has not tried to feel the string and it is not bothering her. 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 Decision made not to trim string today as the normal involutional processes are already shortening the string. External Female Exam: normal external appearance and normal appearance of the urethra Speculum Exam - Vagina: normal appearance of the vagina and normal vaginal discharge Speculum Exam - Cervix: normal appearance of the cervix and Cervical os closed Results Reviewed Results Reviewed: Patient: Anne Nieves MR#: [id number] : 1995 Acct:[id number] Age/Sex: 29 / F ADM Date: 04/18/25 Loc: HO. Attending Dr: Angeles Vera CNM Ordering Physician: Angeles Vera CNM Date of Service: 04/18/25 Procedure(s): US pelvic and transvaginal Accession Number(s): [id number] cc: Reilly Taylor MD; Angeles Vera CNM~ Reason for Exam: Z97.5 - Presence of (intrauterine) contraceptive device EXAMINATION: US PELVIS, COMPLETE CLINICAL INFORMATION: Z97.5 - Presence of (intrauterine) contraceptive device COMPARISON: Ultrasound 6 02/04/2025 TECHNIQUE: Transabdominal and transvaginal imaging was performed. FINDINGS: Uterus is anteverted and anteflexed , measuring 8.5 x 4.6 x 5.9 cm. No focal uterine lesion. Nabothian cysts. Endometrial thickness 0.7 cm. IUD is appropriately positioned within the endometrial canal. Right ovary measures 3.4 x 1.5 x 2 cm. Volume 5.3 mL. 3 anechoic ovarian cysts, largest measuring 1.4 cm. There is normal in echotexture. Left ovary measures 2.7 x 1.6 x 2.2 cm. Volume 5 mL. Ovary is normal in size and echotexture. No free fluid in the cul-de-sac. US/US pelvic and transvaginal IMPRESSION: IUD is appropriately positioned within the endometrial canal. Electronically signed by: Nelson Timmons MD 04/20/2025 08:00 AM EST Dictated By: Nelson Timmons MD Signed By: <Electronically signed by Nelson Timmons MD in OV> 04/20/25 0800 DD/ 1042 TD/TT: 04/18/25 1100 Briquette Maker: HB Name: Anne Nieves Age/Sex: 29/F Attending: Angeles Vera CNM : 1995 Submitted by: Angeles Vera CNM Copies to: Reilly Taylor MD MR #: [id number] Status: DEP REF Collected: 10/02/24 Location: [facility] Received: 10/03/24 Interpretation Satisfactory for evaluation (following processing with acid wash procedure). Negative for intraepithelial lesion or malignancy. Scant cellularity. HPV High Risk: Negative HPV Genotyping 16: Negative HPV Genotyping 18: Negative Clinical Information LMP: Unknown date Previous PAP test: Unknown date/findings Other history: Excessive and frequent menstruation with irregular cycle Material Received ThinPrep-Cervical Copies To Reilly Taylor MD [facility] [address] [place] [address] Angeles Vera CNM [facility] [address], 3rd [place] [address] Electronically Signed By: MADISYN Landis (ASCP) 10/09/24 1013 As of March 12, 2024, the technical services to include automated prescreening performed by the ThinPrep Imaging System, PAP screening and HPV testing will be performed at [facility] (CLIA #[id number]), [address] [place] [address]. Testing for HPV was performed using the ArkAS 6800 system. The presence of HPV in the female genital tract is associated with a number of diseases, including cervical carcinoma. The HPV DNA high risk pool tests for HPV 31, 33, 35, 39, 45, 51, 52, 56, 58, 59, 66 and 68. The testing for HPV 16 and 18 genotypes has also been performed. A positive result Patient: Anne Nieves Age/Sex: 29/F MR#: [id number] Page 1 of 2 Gynecologic Cytology [id number] indicates detection of nucleic acid sequences from one or more subtypes, whereas a negative result indicates such sequences were not detected. All professional services are performed by [facility] ([address] [place] [id number]; ; CLIA #[id number]). The PAP Test is a screening procedure with the inherent possibility of both false negative and false positive results. Results should be interpreted in the context of historic and current clinical findings. Reliability of the PAP Test is enhanced by performing the test on a regular repetitive basis. Patient: Anne Nieves Age/Sex: 29/F MR#: [id number] Assessment & Plan Assessment & Plan (1) Presence of 52 mg levonorgestrel-releasing intrauterine device (IUD): Comment: Inserted for menometrorrhagia, after negative EMB, on 10/09/2024.; noted to be low lying in cervix on 02/04/2025 ultrasound discussed with patient will endeavor to replace on 03/11/2025 or as appointed.-03/11/2025 IUD was replaced, we will verify position with ultrasound and reassess in 4-6w. Patient tolerated procedure very well. Uterus again measures 8.5 cm strings left to be 4 cm long at this visit will assess for trimming after. (note string is 3-3-1/2 cm does not need to be trimmed, at 04/30/25 visit. Code(s): Z97.5 - Presence of (intrauterine) contraceptive device Category: Medical (2) IUD check up: Code(s): Z30.431 - Encounter for routine checking of intrauterine contraceptive device Category: Medical Plan Reviewed how she is doing with the IUD and that she has not gotten a periods since but that isn't keeping with the Mirena. Reviewed that the ultrasound says this 1 is in the right position at least as of the time that it was ultrasounded. Vagina is pink and moist multiparous cervix pink smooth healthy appearing with Mirena IUD string extending about 3-1/2 cm long (when IUD was placed string was left at 4 cm long). Decision made not to trim string today as the normal involutional processes are already shortening the string. Also reviewed her hypertension and how she is doing with obesity and the meds that were newly prescribed for her she feels they are helping she is meant to be checking her blood pressure at home and she admits that is sometimes she does not reminded to try. She will be following up with her primary care provider other than that we will see her in a year. I wished her luck with all of her efforts at weight loss as that will help with her blood pressure as well. Coding Level of Care Code Est Pt Level 3 (64617) Diagnoses Presence of 52 mg levonorgestrel-releasing intrauterine device (IUD) Z97.5 IUD check up Z30.431
[2025-04-30 13:56] VITALS: BP 120/92; BMI 37.9
--- OUTSIDE RECORDS SUMMARY | 2025-04-30 20:39 | XMS_ITS | Clinical Summary ---
Author Organization [employer] Address [address] [place] [address] Care Team Providers Care Fuel Quality Tech Name Role Phone Reilly Taylor MD Primary [...] 90 tablet 3 5 06/30/19 26 Active psyllium (Metamucil) 58.6 % packet Take 1 packet (3.4 g of fiber) by mouth 2 times daily. Mix and drink with at least 8 ounces of water or juice. 60 packet 11 5 11/13/19 26 Active cetirizine (ZyrTEC) 10 MG tablet TAKE 1 TABLET BY MOUTH EVERY DAY 90 tablet 1 04/02/2025 3:56 PM EST 5 Active losartan (Cozaar) 100 MG tablet TAKE 1 TABLET BY MOUTH EVERY DAY 90 tablet 1 5 Active Emollient (Cetaphil) moisturizing lotion APPLY TO THE AFFECTED AREA(S) TWICE DAILY 237 mL 1 04/02/2025 3:56 PM EST 5 Active phentermine 15 MG capsule Take 1 capsule (15 mg) by mouth before breakfast. 30 capsule 04/02/2025 3:56 PM EST 5 05/02/20 25 Active topiramate (Topamax) 50 MG tablet Take 1 tablet (50 mg) by mouth Once per day. 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 operator who ordered a abd/pelvic ct scan to r/o renal artery stenosis, will order new labs and follow up in 3 months Encounters Date Type Department Care Team Description 04/18/2025 Orders Only [facility] External Provider, [facility] 04/01/2025 3:15 PM EST Telemedicine [facility] [address] [place] [address] Reilly Taylor MD Primary hypertension (Primary Dx); Iron deficiency; Class 3 severe obesity due to excess calories with serious comorbidity and body mass index (BMI) of 40.0 to 44.9 in adult (HCC) 04/01/2025 Travel 03/30/2025 Telephone [facility] [address] [place] [address] Reilly Taylor MD chart prep 03/25/2025 Refill [facility] [address] [place] [address] Reilly Taylor MD Primary hypertension; Iron deficiency 02/04/2025 Orders Only [facility] External Provider, [facility] from Last 3 Months Immunizations Immunization [...] Associated Diagnosis Comments US PELVIS TRANSVAGINAL Routine 04/18/2025 10:42 AM EST US PELVIS TRANSVAGINAL Routine 02/04/2025 3:06 PM EDT HPV DNA, LOW/HIGH RISK Routine [...] Health Maintenance Results * US Pelvis Transvaginal (04/18/2025 10:42 AM EST) Only the most recent of2 resultswithin the time period is included. Anatomical Region Laterality Modality Pelvis Ultrasound 04/18/2025 10:4 2 AM EST Narrative 04/20/2025 8:04 AM EST [place] [address] Ultrasound Report Signed Patient: Anne Nieves MR#: [id number] : 1995 Acct:[id number] Age/Sex: 29 / F ADM Date: 04/18/25 Loc: HO.US Attending Dr: Angeles Vera CNM Ordering Physician: Angeles Vera CNM Date of Service: 04/18/25 Procedure(s): US pelvic and transvaginal Accession Number(s): [id number] cc: Reilly Taylor MD; Angeles Vera CNM Reason for Exam: Z97.5 - Presence of (intrauterine) contraceptive device EXAMINATION: US PELVIS, COMPLETE CLINICAL INFORMATION: Z97.5 - Presence of (intrauterine) contraceptive device COMPARISON: Ultrasound 6 02/04/2025 TECHNIQUE: Transabdominal and transvaginal imaging was performed. FINDINGS: Uterus is anteverted and anteflexed , measuring 8.5 x 4.6 x 5.9 cm. No focal uterine lesion. Nabothian cysts. Endometrial thickness 0.7 cm. IUD is appropriately positioned within the endometrial canal. Right ovary measures 3.4 x 1.5 x 2 cm. Volume 5.3 mL. 3 anechoic ovarian cysts, largest measuring 1.4 cm. There is normal in echotexture. Left ovary measures 2.7 x 1.6 x 2.2 cm. Volume 5 mL. Ovary is normal in size and echotexture. No free fluid in the cul-de-sac. US/US pelvic and transvaginal IMPRESSION: IUD is appropriately positioned within the endometrial canal. Electronically signed by: Nelson Timmons MD 04/20/2025 08:00 AM [facility] Dictated By: Nelson Timmons MD Signed By: <Electronically signed by Nelson Timmons MD in OV> 04/20/25 0800 DD/ 1042 TD/TT: 04/18/25 1100 Wet Suit Gluer: PATTIE Procedure Note Donotuseinterpreter, Image - 04/20/2025 [place] [address] Ultrasound Report Signed Patient: Anne NievesMR#: [id number] : 1995Acct:[id number] Age/Sex: Date: 04/18/25 Loc: HO.US Attending Dr: Angeles Vera CNM Ordering Physician: Angeles Vera CNM Date of Service: 04/18/25 Procedure(s): US pelvic and transvaginal Accession Number(s): [id number] cc: Reilly Taylor MD; Angeles Vera CNM Reason for Exam: Z97.5 - Presence of (intrauterine) contraceptive device EXAMINATION: US PELVIS, COMPLETE CLINICAL INFORMATION: Z97.5 - Presence of (intrauterine) contraceptive device COMPARISON: Ultrasound 6 02/04/2025 TECHNIQUE: Transabdominal and transvaginal imaging was performed. FINDINGS: Uterus is anteverted and anteflexed , measuring 8.5 x 4.6 x 5.9 cm. No focal uterine lesion. Nabothian cysts. Endometrial thickness 0.7 cm. IUD is appropriately positioned within the endometrial canal. Right ovary measures 3.4 x 1.5 x 2 cm. Volume 5.3 mL. 3 anechoic ovarian cysts, largest measuring 1.4 cm. There is normal in echotexture. Left ovary measures 2.7 x 1.6 x 2.2 cm. Volume 5 mL. Ovary is normal in size and echotexture. No free fluid in the cul-de-sac. US/US pelvic and transvaginal IMPRESSION: IUD is appropriately positioned within the endometrial canal. Electronically signed by: Nelson Timmosn MD 04/20/2025 08:00 AM EST Dictated By: Nelson Timmons MD Signed By: <Electronically signed by Nelson Timmons MD in OV> 04/20/25 0800 DD/ 1042 TD/TT: 04/18/25 1100 Wet Suit Gluer: PATTIE [facility] External Provider IMG US PROCEDURES Edited Result - Final * HPV DNA, Low/High Risk (10/02/2024 1:06 PM EDT) HPV High Risk Negative Negative [facility] HPV Genotype 16 Negative Negative [facility] HPV Genotype 18 Negative Negative [facility] Comment:HPV testing performe d at [facility] (CLIA#[id number]), [address] [place] [address].Testing for HPV was performed using the Najma [...] Provider LAB BLOOD ORDERAB LES Final Result [facility] [address] [place] [address] [phone] * Pap Smear (10/02/2024 1:06 PM EDT) 10/02/2024 1:06 PM EDT 10/03/2024 9:40 AM EDT Narrative [facility] - 10/09/2024 10:13 AM EDT ----- ------- Name: Anne Nieves Age/Sex: 29/F : 1995 Unit#: [id number] Attend Dr: Angeles Vera CNM Re10/02/24 Status: DEP REF Location: HO.LNP Disch: ----- ------- SPEC : [id number] RECD: 10/03/24 STATUS: MULUGETATrace SANTOSH NUM: [id number] NATE: 10/02/24-[address] [facility] [address]: Angeles Vera CNM ENTERED: 10/03/24-1049 SP TYPE: Pap oRber CRUZ DR: Reilly Taylor MD ORDERED: Pap Smear [...] Received ThinPrep-Cervical Copies To: Reilly Taylor MD [facility] [address] [place] [address] Angeles Vera CNM [facility] Women[facility] Services [address], 3rd [place] [address] ----- ------- Signed (signature on file) MADISYN Landis (ASCP) 10/09/24 1013 ----- ------- END OF REPORT Generic External Data Provider LAB CYTOLOGY LEONEL PEARSON Final Result [facility] [address] [place] [address] [phone] * (ABNORMAL) Lipid Panel, Standard (07/04/2024 6:55 AM EST) Triglycerides 134 <150 mg/dL [facility] Comment:Desirable Triglyceri de: less than 150 mg/dLBorderline High Triglyceride 150-199 mg/dLHigh Triglyceride: 200-499 mg/dLVery High Triglyceride: greater than or equal to 5OO mg/dL Cholesterol 164 <200 mg/dL [facility] Comment:Desirable Cholestero l: less than 200 mg/dLBorderline High Cholesterol: 200-239 mg/dLHigh Cholesterol: greater than 239 mg/dL LDL Cholesterol Calculated 104(H) <100 mg/dL [facility] Comment:Desirable LDL: less than 100 mg/dLNear Optimal/Above Optimal LDL: 110- 129 mg/dLBorderline High LDL: 130-159 mg/dLHigh LDL: 160-189 mg/dLVery High LDL: greater than or equal to 190 mg/dL HDL Cholesterol 34(L) >40 mg/dL [facility] Comment:Desirable HDL: great er than 40 mg/dL Note: This HDL assay may give artificially low results in patients with liver disease. Blood Venous blood specimen / Unknown 07/04/2024 6:55 AM EST 07/04/2024 6:55 AM EST us Reilly Mccoy MD LAB BLOOD ORDERABL ES Final Result Performing Organization Address [facility] Co de Phone Number [facility] [address] [place] [phone] * HIV-1 RNA, Quantitative, Real-Time PCR with Reflex to Genotype (RTI, PI, Integrase) (07/06/2022 9:05 AM EST) Pathologist [facility] HIV 1 RNA, QN PCR NOT DETECTED copies/mL [facility], HIV 1 RNA, QN PCR NOT DETECTED Log copies/mL [facility], Comment: REFERENCE RANGE: NOT DETECTED copies/mL NOT DETECTED Log copies/mL This test was performed using Real-Time Polymerase Chain Reaction. Reportable range is 20 to 10,000,000 copies/mL (1.30-7.00 Log copies/mL). 07/06/2022 9:05 AM EST 07/06/2022 9:06 AM EST Narrative [facility] - 07/13/2022 8:24 PM EST FASTING:YES FASTING: YES us Reilly Mccoy MD LAB BLOOD ORDERABL ES Final Result [facility] [address], [place] [address] [facility], [address] [place] [address] * Hepatitis C Antibody with Reflex to HCV, RNA, Quantitative, Real-Time PCR (07/06/2022 9:05 AM EST) Hepatitis C Antibody NON-REACT CADY NON-REACT CADY [facility] [place] [facility] [employer] Index 0.03 <1.00 [facility] [place] [employer] Comment: HCV antibody was non-reactive. There is no laboratory evidence of HCV infection. In most cases, no further action is required. However, if recent HCV exposure is suspected, a test for HCV RNA (test code 57482) is suggested. For additional information please refer to http://[employer].Gatheredtable/faq/PZP97y5 (This link is being provided for informational/ educational purposes only.) Blood Venous blood specimen / Unknown 07/06/2022 9:05 AM EST 07/06/2022 9:06 AM EST Narrative [facility] - 07/13/2022 8:24 PM EST FASTING:YES FASTING: YES Reilly Mccoy MD LAB BLOOD ORDERABL ES Final Result [facility] [address], [place] [address] [facility] [place] [employer] [address] [facility], ([address]) [place] [address] from Last 3 Months or Most Recently Relevant to Health Maintenance Insurance [facility] 3 Care Teams Fuel Quality Tech Relationship Specialty Start Date End Date Reilly Taylor MD [address] [place] [phone] PCP - General Internal Medicine 10/14/19
--- OUTSIDE RECORDS SUMMARY | 2025-04-30 20:39 | XMS_ITS | Encounter Summary ---
Author Organization [employer] Address [address] [place] [address] Care Team Providers Care Academy Director Name Role Phone Reilly Taylor MD Primary Care Prov ider Reason for Visit * Reason Onset Date Comments Med Refill 08/29/2023 Encounter Details Date Type Department Care Team ([facility] st Contact Info) Description 08/29/2023 Refill [facility] [address] [place] [address] Reilly Taylor MD [address] [place] [address] Social History Tobacco Use Types Packs/Day Years [...] documented as of this encounter Care Teams Academy Director Relationship Specialty Start Date End Date Reilly Taylor MD [address] [place] [address] PCP - General Internal Medicine 10/14/19 documented as of this encounter
--- OUTSIDE RECORDS SUMMARY | 2025-04-30 20:39 | XMS_ITS | Encounter Summary ---
Author Organization [employer] Address [address] [place] [address] Care Team Providers Care Hub Borer Name Role Phone Reilly Taylor MD Primary Care Prov ider Reason for Visit * Reason Onset Date Comments Med Refill 12/13/2022 Encounter Details Date Type Department Care Team (Late st Contact Info) Description 12/13/2022 Refill [facility] [address] [place], [place] [phone] Reilly Taylor MD [address] [place], [place] [phone] Primary hypertension Social History Tobacco Use Types [...] documented as of this encounter Care Teams Hub Borer Relationship Specialty Start Date End Date Reilly Taylor MD [address] [place] [address] PCP - General Internal Medicine 10/14/19 documented as of this encounter
--- OUTSIDE RECORDS SUMMARY | 2025-04-30 20:39 | XMS_ITS | Encounter Summary ---
Author Organization [employer] Address [address] [place] [address] Care Team Providers Care Artist Agent Name Role Phone Reilly Taylor MD Primary Care Prov ider Reason for Visit * Reason Onset Date Comments Referral 08/21/2024 Encounter Details Date Type Department Care Team (Late st Contact Info) Description 08/21/2024 Telephone [facility] MEDICINE [address] [place] [address] Reilly Taylor MD [address] [place] [address] Referral Social History Tobacco Use Types Packs/Day [...] a referral for hematology. Contact pt at [phone] documented in this encounter Plan of Treatment Not on file documented as of this encounter Visit Diagnoses Not on filedocumented in this encounter Additional Health Concerns Assessment Noted Time PHQ-9 Depression Total Score: 1 09/01/19 23 2:22 PM EDT documented as of this encounter Care Teams Artist Agent Relationship Specialty Start Date End Date Reilly Taylor MD [address] [place] [phone] PCP - General Internal Medicine 10/14/19 documented as of this encounter
== END 2025-04-30 14:32 | disposition home or self-care (01) ==
LOC: HO.HWSM 13:29
PROVIDERS: PCP Internal Medicine; Visit Provider Advanced Practice Midwife
DX: Z97.5 Presence of (intrauterine) contraceptive device (principal); Z30.431 Encounter for routine checking of intrauterine contraceptive device
CPT/HCPCS: 99213

== ENCOUNTER → 2025-04-30 13:29 | Outpatient (BNVA) | payer OTHER, SELFPAY | PROVIDERS: PCP Internal Medicine; Visit Provider Advanced Practice Midwife | DX: Z30.431 Encounter for routine checking of intrauterine contraceptive device (principal) | CPT/HCPCS: 99212 ==